=== PATIENT | male | born 1960 | race Caucasian/White ===

== ENCOUNTER → 2025-04-25 08:16 | Outpatient (CLI) | payer OTHER, SELFPAY ==
--- OUTSIDE RECORDS SUMMARY | 2025-04-04 08:13 | XMS_ITS ---
Author Organization [facility] Care Team Providers Care Automatic Seamer Name Role Phone Guy Ellington Unavailable Allergies and adverse reactions Code CodeSystem Substance Reaction Severity StartDate Concern Status 721636414 SNOMED CT Sulfa Antibiotics Urticaria (code- 614871311, SNOMED CT) Unknown 06/10/2023 active Care Team Name Role Address Phone Organization Dates Guy Ellington PCP [address] [place], [address], [place] (Office): : : [employer] 06/11/2023 - 06/11/2023 Mental Status Section Date Assessment Total Score Description 06/11/2023 CAM 0 No delirium ind icated 06/11/2023 BIMS 15 cognitively int act CAM 0 No delirium ind icated PHQ-9 15 moderately bryce re depression Problems Problem # Description Date of onset Resolved Date Code CodeSystem Concern Status 1 UNSTEADINESS ON FEET 07/13/[address] active 2 DIFFICULTY IN WALKING, NOT ELSEWHERE CLASSIFIED 06/11/[address] active 3 NEED FOR ASSISTANCE WITH PERSONAL CARE 06/11/[address] active 4 WEAKNESS 06/11/[address] active 5 ACUTE RESPIRATORY FAILURE, UNSPECIFIED WHETHER WITH HYPOXIA OR HYPERCAPNIA 06/10/[address] active 6 ARTHROSCOPIC SURGICAL PROCEDURE CONVERTED TO OPEN PROCEDURE 06/10/[address] active 7 BENIGN PROSTATIC HYPERPLASIA WITH LOWER URINARY TRACT SYMPTOMS 06/10/[address] active 8 BODY MASS INDEX [BMI] 45.0-49.9, ADULT 06/10/[address] active 9 CHRONIC KIDNEY DISEASE, STAGE 3 UNSPECIFIED 06/10/[address] active 10 GASTRO-ESOPHAGEAL REFLUX DISEASE WITHOUT ESOPHAGITIS 06/10/[address] active 11 HYPERLIPIDEMIA, UNSPECIFIED 06/10/[address] active 12 HYPERTENSIVE HEART AND CHRONIC KIDNEY DISEASE WITHOUT HEART FAILURE, WITH STAGE 1 THROUGH STAGE 4 CHRONIC KIDNEY DISEASE, OR UNSPECIFIED CHRONIC KIDNEY DISEASE 06/10/[address] active 13 HYPOTHYROIDISM, UNSPECIFIED 06/10/[address] active 14 PROGRAM PARAPROFESSIONAL (CURRENT) USE OF INSULIN 06/10/[address] active 15 METABOLIC ENCEPHALOPATHY 06/10/[address] active 16 MORBID (SEVERE) OBESITY WITH ALVEOLAR HYPOVENTILATION 06/10/[address] active 17 OBSTRUCTIVE SLEEP APNEA (ADULT) (PEDIATRIC) 06/10/[address] active 18 PAIN IN LEFT KNEE 06/10/[address] active 19 RETENTION OF URINE, UNSPECIFIED 06/10/[address] active 20 SEPSIS, UNSPECIFIED ORGANISM 06/10/[address] active 21 TYPE 2 DIABETES MELLITUS WITH DIABETIC CHRONIC KIDNEY DISEASE 06/10/[address] active 22 VITAMIN D DEFICIENCY, UNSPECIFIED 06/10/[address] active Reason for Referral No Reasons for Referral Entered Social History Social History Observation Description Start Date End Date Code Code System Current Smoking Status Tobacco smoking consumption unknown 520347315 SNOMED CT Sex Assigned At Male 1960 04552-3 [facility] Gender Identity Sexual Orientation Vital Signs Code Code System Vitals Name Values and Units Timing Information 15356-2 LOINC Pain Level Value=0.0 06/11/2023 8302-2 LOINC Height Value=72.0 Units=Inches 1 08/12/2022
--- OUTSIDE RECORDS SUMMARY | 2025-04-04 08:13 | XMS_ITS | Encounter Summary ---
Author Organization [facility] Address Formerly [facility] [place] [address] Care Team Providers Care Marketing Assistant Name Role Phone Quincy Rosado MD Primary Care Provider [phone] None, Provider Primary Care Provider Zachary Longoria MD Primary Care Provider [phone] Encounter Details Date Type Department Care Team (Late st Contact Info) Description 11/04/2020 Prep for Procedure [facility] [place], [place] [address] Kevin Briggs MD [address] [phone] Social History Tobacco Use Types Packs/Day Years Used Date Smoking Tobacco: Former Smokeless Tobacco: Never Alcohol Use Standard Drinks/Week Comments Never 0 (1 standard drink = 0.6 oz pur e alcohol) AUDIT-C Answer Date Recorded Q1: How often do you have a drink containing alc ohol? Never 10/29/2020 Average Number of Drinks Not on file 021 Frequency of Binge Drinking Not on file 10/10 Sex and Gender Information Value Date Recorded Sex Assigned at Male 01/22/2025 1:19 PM CDT Legal Sex Male 6:44 AM SKILLS TRAINER Gender Identity Not on file Sexual Orientation Not on file COVID-19 Exposure Response Date Recorded In the last month, have you been in contact with someone who was confirmed or suspected to have Coronavirus / COVID-19? No / Unsure 11/04/2020 6:19 AM CDT documented as of this encounter Functional Status * RETIRED Are you deaf or do you have serious difficulty hearing Answer Date of Assessment Author Status No 08/19/2020 10:15 PM SKILLS TRAINER 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 Answer Date of Assessment Author Status No 08/19/2020 10:15 PM SKILLS TRAINER Acti ve * Do you have serious difficulty walking or climbing stairs? Answer Date of Assessment Author Status No 08/19/2020 10:15 PM Jose Velazco RN Active * Do you have difficulty dressing or bathing? Answer Date of Assessment Author Status No 08/19/2020 10:15 PM Jose Velazco RN Active * Because of a physical, mental, or emotional condition, do you have difficulty doing errands alone such as visiting a doctor's office or shopping? Answer Date of Assessment Author Status No 08/19/2020 10:15 PM Jose Velazco RN Active documented as of this encounter Mental Status * Because of a physical, mental, or emotional condition, do you have serious difficulty concentrating, remembering, or making decisions? Answer Entry Date Author Status No 08/19/2020 10:15 PM Jose Velazco RN Active documented in this encounter Plan of Treatment Upcoming Encounters Date Type Department Care Team (Late st Contact Info) Description 04/05/2025 11:00 AM CDT Home Care Visit [facility] Home Care [address] [place] [address] Татьяна Mondragon LPN 04/09/2025 10:00 AM CDT Home Care Visit [facility] Home Care [address] [place] [address] Sourav Negron, BLUEPRINT CUTTER [address] [place] [address] 04/11/2025 11:30 AM CDT Office Visit [facility] on THREE [facility], [address] [facility] [place] [place] [address] Marita Hargrove, PROTOCOL MANAGER Three [facility] [address] [place] [address] 04/12/2025 9:00 AM CDT Home Care Visit [place] [address] [place] [address] Татьяна Mondragon LPN 04/12/2025 10:00 AM CDT Home Care Visit [facility] [place] [address] [place] [address] Sourav Negron, BLUEPRINT CUTTER [address] [place], [place] [address] 04/15/2025 8:00 AM CDT Home Care Visit [place] [address] [place] [address] Sourav Negron, BLUEPRINT CUTTER [address] [place], [place] [address] 04/18/2025 8:00 AM CDT Home Care Visit [place] [address] [place] [address] Sourav Negron, BLUEPRINT CUTTER [address] [place] [address] 04/19/2025 8:00 AM CDT Appointment [facility] Home Care [place] [address] [place] [address] Niurka Cabral, RN [phone] (Work) 04/22/2025 8:00 AM CDT Home Care Visit [facility] Home Care [place] [address] [place] [address] Sourav Negron, BLUEPRINT CUTTER [address] [place], [place] [address] 04/24/2025 8:00 AM CDT Appointment [facility] Home Care [place] [address] [place] [address] Shikha Posada, PT [address] [place] [address] 05/22/2025 3:00 PM SKILLS TRAINER Office Visit [facility] on [address] [facility] [address], [address] [place] [address] Inessa Arriola MD Three [facility]. [address] [place] [address] documented as of this encounter Visit Diagnoses Not on filedocumented in this encounter Additional Health Concerns Infection Onset Date Last Indicated Resolved Time COVID-19 Rule Out 05/10/2023 05/10/2023 05/10/2023 10:23 PM CDT COVID-19 Rule Out 01/22/2025 01/22/2025 01/22/2025 2:34 PM CDT documented as of this encounter Care Teams Marketing Assistant Relationship Specialty Start Date End Date Quincy Rosado MD [address] [address] PCP - General INTERNAL MEDICINE 08/19/20 03/14/25 None, MD Faraz PCP - General UNKNOWN PHYSICIAN SPECIALTY 03/15/25 03/18/25 Zachary Allen MD [address] [place] [address] PCP - General INTERNAL MEDICINE 03/27/25 documented as of this encounter
--- OUTSIDE RECORDS SUMMARY | 2025-04-04 08:13 | XMS_ITS | Clinical Summary ---
Author Organization [facility] Address [address] [place] [address] Care Team Providers Care Horses Or Mules Teamster Name Role Phone Quincy Rosado Primary Care Provider Allergies Active Allergy Reactions Criticality Noted Date Comments Sulfa Antibiotics Hives 05/07/2023 Medications amLODIPine (NORVASC) 10 MG tablet Take 1 tablet (10 mg total) by mouth in the morning. 3 Active atorvastatin (LIPITOR) 40 MG tablet Take 1 tablet (40 mg total) by mouth nightly. 3 Active ferrous sulfate 325 (65 FE) MG tablet Take 1 tablet by mouth daily with lunch. 3 Active finasteride (PROSCAR) 5 MG tablet Take 1 tablet (5 mg total) by mouth in the morning. 3 Active furosemide (LASIX) 20 MG tablet 3 tablets (60 mg total) by PO/Per Tube route 2 (two) times a day diuretic. 3 Active lidocaine (LIDOCARE) 4 % patch patch Place 1 patch on the skin in the morning. 3 Active thiamine 100 MG tablet Take 2 tablets (200 mg total) by mouth in the morning. 3 Active acetaminophen (TYLENOL) 325 MG tablet Take 2 tablets (650 mg total) by mouth every 4 (four) hours as needed for mild pain or moderate pain. 3 Active cholecalciferol 1000 units capsule Take 50,000 Units by mouth once a week. 3 Active docusate sodium (DSS) 100 MG capsule Take 1 capsule (100 mg total) by mouth in the morning and 1 capsule (100 mg total) before bedtime. 3 Active Empagliflozin (JARDIANCE) 25 MG tabletIndication s:Type 2 Diabetes Mellitus Take 1 tablet (25 mg total) by mouth in the morning. Indications: Type 2 Diabetes. 3 Active enoxaparin (LOVENOX) 40 MG/0.4ML solution prefilled syringeIndicatio ns:Deep Vein Thrombosis Prophylaxis Inject 0.4 mL (40 mg total) under the skin in the morning and 0.4 mL (40 mg total) before bedtime. Indications: Treatment to Prevent Deep Vein Thrombosis. 3 Active glipiZIDE (GLUCOTROL) 5 MG tabletIndication s:Type 2 Diabetes Mellitus Take 1 tablet (5 mg total) by mouth daily with breakfast Indications: Type 2 Diabetes. 3 Active Insta-Glucose 77.4 % gelIndications:H ypoglycemia Take 0.5 Tubes (15.5 g total) by mouth as needed for blood sugar < 70 mg/dl Indications: Disorder with Low Blood Sugar. 3 Active insulin glargine (LANTUS) 100 UNIT/ML injectionIndicat ions:Diabetes Mellitus Inject 55 Units under the skin 2 (two) times a day with Breakfast and Dinner Indications: Diabetes. 3 Active insulin lispro 100 UNIT/ML injectionIndicat ions:Hyperglycem ia Inject 0-7 Units under the skin 3 (three) times a day before meals Indications: High Blood Sugar. 3 Active insulin lispro 100 UNIT/ML injectionIndicat ions:Type 2 Diabetes Mellitus Inject 25 Units under the skin in the morning and 25 Units at noon and 25 Units in the evening. Inject with meals. Indications: Type 2 Diabetes. 3 Active spironolactone (ALDACTONE) 25 MG tablet Take 1 tablet (25 mg total) by mouth in the morning and 1 tablet (25 mg total) in the evening. Take before meals. 3 Active Active Problems Problem Noted Date Diagnosed Date Sepsis 05/25/2023 Immunizations Immunization Administration Dates Next Due Pfizer SARS-CoV-2 Vaccination 05/26/2023(Deferre d: Not available) Social History Tobacco Use Types Packs/Day Years Used Date Smoking Tobacco: Never Assessed Sex and Gender Information Value Date Recorded Sex Assigned at Not on file Legal Sex Male 11:42 AM EST Gender Identity Not on file Sexual Orientation Not on file Last Filed Vital Signs Vital Sign Reading Time Taken Comments Blood Pressure 132/68 06/10/2023 7:40 AM ANIMAL CRUELTY INVESTIGATION SUPERVISOR Pulse 81 06/10/2023 7:40 AM ANIMAL CRUELTY INVESTIGATION SUPERVISOR Temperature 37.3 C (99.2 F) 06/10/2023 7:40 AM ANIMAL CRUELTY INVESTIGATION SUPERVISOR Respiratory Rate 18 06/10/2023 7:40 AM ANIMAL CRUELTY INVESTIGATION SUPERVISOR Oxygen Saturation 96% 06/09/2023 7:30 PM ANIMAL CRUELTY INVESTIGATION SUPERVISOR Inhaled Oxygen Concentration - - Weight 168.3 kg (371 lb) 06/10/2023 4:00 AM ANIMAL CRUELTY INVESTIGATION SUPERVISOR Height 182.9 cm (6' 0.01) 05/25/2023 7:04 PM CS T Body Mass Index 50.31 05/25/2023 7:04 PM ANIMAL CRUELTY INVESTIGATION SUPERVISOR Plan of Treatment Health Maintenance Due Date Last Done Comments CT Colonography 1960 Colonoscopy 1960 Colorectal Cancer Screening 1960 FIT-DNA (Cologuard) 1960 FIT 1960 FOBT 1960 Sigmoidoscopy 1960 Annual Visit Topic 1961 MMR Vaccines (1 of 1 - Stand dot series) 1961 Hepatitis C Screening 1978 DTaP/Tdap/Td Vaccines (1 - Tdap) 1979 PSA Test 2015 HIB Vaccines Aged Out No longer eligi ble based on patient's age to complete this topic HPV Vaccines Aged Out No longer eligi ble based on patient's age to complete this topic Hepatitis A Vaccines Aged Out No long er eligible based on patient's age to complete this topic Hepatitis B Vaccines Aged Out No long er eligible based on patient's age to complete this topic IPV Vaccines Aged Out No longer eligi ble based on patient's age to complete this topic Meningococcal Vaccine Aged Out No latesha jina eligible based on patient's age to complete this topic Pneumococcal Vaccine: Pediat rics (0 to 5 years) and At-Risk Patients (6 to 64 Years) Aged Out No longer eligible b ased on patient's age to complete this topic Advance Directives * Full Resuscitation (Latest Code Status on File) Date Activated Date Inactivated Comments 05/25/2023 10:15 PM 06/10/2023 8:54 PM Question Answer Comments I have discussed this order with the patient or his/her surrogate and have received informed consent. Yes Care Teams Horses Or Mules Teamster Relationship Specialty Start Date End Date Quincy Rosado [address] [place] [address] PCP - General 05/26/23
--- OUTSIDE RECORDS SUMMARY | 2025-04-04 08:13 | XMS_ITS | Encounter Summary ---
Author Organization [facility] Address [facility] [place] [address] Care Team Providers Care Bolting Machine Operator Name Role Phone Quincy Rosado MD Primary Care Provider [phone] None, Provider Primary Care Provider Zachary Longoria MD Primary Care Provider [phone] Encounter Details Date Type Department Care Team (Late st Contact Info) Description 11/01/2020 Prep for Procedure [facility] One Day [facility] [place], [place] [address] Kevin Briggs MD [address] [phone] Social History Tobacco Use Types Packs/Day Years [...] PM CDT Legal Sex Male 6:44 AM LINER CHECKER Gender Identity Not on file Sexual Orientation [...] Assessment Author Status No 08/19/2020 10:15 PM LINER CHECKER 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 Answer Date of Assessment Author Status No 08/19/2020 10:15 PM LINER CHECKER Acti ve * Do you have serious [...] 04/05/2025 11:00 AM CDT Home Care Visit [facility] Home Care [address] [place] [address] Татьяна Mondragon LPN 04/09/2025 10:00 AM CDT Home Care Visit [facility] Home Care [address] [place] [address] Sourav Negron, RN NEONATAL [address] [place] [address] 04/11/2025 11:30 AM CDT Office Visit [facility] on THREE [facility], [address] [facility] [place] [address] Marita Hargrove, MILLED LUMBER GRADER Three [facility] [address] [place] [address] 04/12/2025 9:00 AM CDT Home Care Visit [place] [address] [place] [address] Татьяна Mondragon LPN 04/12/2025 10:00 AM CDT Home Care Visit [facility] Care [place] [address] [place] [address] Sourav Negron, RN NEONATAL [address] [place], [place] [address] 04/15/2025 8:00 AM CDT Home Care Visit [place] [address] [place] [address] Sourav Negron, RN NEONATAL [address] [place], [place] [address] 04/18/2025 8:00 AM CDT Home Care Visit [place] [address] [place] [address] Sourav Negron, RN NEONATAL [address] [place] [address] 04/19/2025 8:00 AM CDT Appointment [facility] Home Care [place] [address] [place] [address] Niurka Cabral, RN [phone] (Work) 04/22/2025 8:00 AM CDT Home Care Visit [facility] Home Care [place] - [address] [place] [address] Sourav Negron, RN NEONATAL [address] [place], [place] [address] 04/24/2025 8:00 AM CDT Appointment [facility] Home Care [address] [place] [address] Shikha Posada, PT [address] [place] [address] 05/22/2025 3:00 PM LINER CHECKER Office Visit [facility]- on THREE [facility] [address], [address] [place], [place] [address] Inessa Arriola MD Three [facility]. [address] [place] [address] documented as of this encounter Visit Diagnoses Diagnosis Abnormal findings on imaging of biliary tract- Primary Nonspecific (abnormal) findings on radiological and other examination of biliary tract documented in this encounter Additional Health Concerns Infection Onset Date Last Indicated Resolved Time COVID-19 Rule Out 11/02/2020 11/02/2020 11/03/2020 12:18 PM CDT COVID-19 Rule Out 05/10/2023 05/10/2023 05/10/2023 10:23 PM CDT COVID-19 Rule Out 01/22/2025 01/22/2025 01/22/2025 2:34 PM CDT documented as of this encounter Care Teams Bolting Machine Operator Relationship Specialty Start Date End Date Quincy Rosado MD [address] [address] PCP - General INTERNAL MEDICINE 08/19/20 03/14/25 None, MD Faraz PCP - General UNKNOWN PHYSICIAN SPECIALTY 03/15/25 03/18/25 Zachary Allen MD [address] [place] [address] PCP - General INTERNAL MEDICINE 03/27/25 documented as of this encounter
--- OUTSIDE RECORDS SUMMARY | 2025-04-04 08:13 | XMS_ITS | Clinical Summary ---
Author Organization [facility] Address [address] [place] [address] Care Team Providers Care Assistance Coordinator Name Role Phone Zachary Allen MD Primary Care Provider [phone] Allergies Active Allergy Reactions Criticality Noted Date Comments Sulfa (Sulfonamide Antibiotics) Hives High 04/11 Medications aspirin (ECOTRIN EC) 81 mg Tablet, Delayed Release (E.C.) Take 1 Tablet by mouth. 05/11/20 15 Active triamcinolone acetonide (KENALOG) 0.1 % Cream Apply to affected area 2 times daily. Apply to affected area of leg(s) 1 to 2 times per day up to 2 to 4 weeks Active Insulin [place], Disposable, (Novofine 32) 32 gauge x 1/4 Needle by [facility]Non-Drug; Combo Route) route. Active Insulin [place], Disposable, (TechLITE Pen Needle) 32 gauge x 1/4 Needle by Misc.(Non-Drug; Combo Route) route. Active acetaminophen (TYLENOL) 325 mg tablet Take 650 mg by mouth every 4 hours as needed. 06/10/20 23 Active cyanocobalamin 1,000 mcg Tablet Take 1,000 mcg by mouth daily. Active mupirocin (BACTROBAN) 2 % Ointment Apply to affected area daily. 30 Gram 1 11/16/19 25 Active Cholestyramine- Sucrose 4 gram Powder DISSOLVE 2 GRAMS( 1/2 SCOOP) INTO LIQUID AND DRINK BY MOUTH DAILY 378 Gram 1 12/20/19 25 Active telmisartan (MICARDIS) 40 mg Tablet Take 1 Tablet (40 mg) by mouth daily. 100 Tablet 3 02/13/20 25 Active furosemide (LASIX) 20 mg tablet Take 3 Tablets (60 mg) by mouth daily. 90 Tablet 02/13/20 25 Active finasteride (PROSCAR) 5 mg tablet Take 1 Tablet (5 mg) by mouth daily. 90 Tablet 02/13/20 25 Active atorvastatin (LIPITOR) 40 mg tablet Take 1 Tablet (40 mg) by mouth daily at bedtime. 100 Tablet 02/13/20 25 Active tamsulosin (FLOMAX) 0.4 mg capsule Take 1 Capsule (0.4 mg) by mouth daily. 90 Capsule 02/13/20 25 Active carvediloL (COREG) 25 mg tablet Take 1 Tablet (25 mg) by mouth 2 times daily. 100 Tablet 02/13/20 25 Active amLODIPine (NORVASC) 10 mg tablet Take 1 Tablet (10 mg) by mouth daily. 100 Tablet 02/13/20 25 Active allopurinoL (ZYLOPRIM) 300 mg tablet Take 1 Tablet (300 mg) by mouth daily. 90 Tablet 02/13/20 25 Active blood sugar diagnostic (Uber Ultra Test) StripIndication s:Type 2 diabetes mellitus with diabetic nephropathy, with long-term current use of insulin (CMS/[facility]) Use to test blood sugars 5-6 times a day 200 Strip 02/13/20 25 Active Insulin [place], Disposable, (TechLITE Pen Needle) 32 gauge x 5/32 Needle Inject 100 Each by subcutaneous injection daily. 100 Each 02/13/20 25 Active metFORMIN (GLUCOPHAGE) 1,000 mg tablet Take 1 Tablet (1,000 mg) by mouth 2 times daily. 200 Tablet 02/13/20 25 Active pantoprazole (PROTONIX) 40 mg Tablet, Delayed Release (E.C.) Take 1 Tablet (40 mg) by mouth daily. 100 Tablet 02/14/20 25 Active albuterol sulfate HFA 90 mcg/actuation aerosol inhaler 2 Puffs by See Admin Instructions route see administration instructions. SHAKE AND INHALE 2 PUFFS INTO THE LUNGS FOUR TIMES DAILY NEEDED; RINSE MOUTH AFTER USE 20.1 Gram 02/15/20 25 Active HumaLOG KwikPen Insulin 100 unit/mL pen syringeIndicati ons:Type 2 diabetes mellitus with diabetic nephropathy, with long-term current use of insulin (CMS/HCC) 30 units by subcutaneous injection in the morning, 30units with lunch and 36 units in the evening 87 mL 02/15/20 25 Active magnesium OXIDE (MAG-OX) 400 mg (241.3 mg magnesium) tablet Take 1 Tablet (400 mg) by mouth daily. 90 Tablet 1 02/16/20 25 Active levothyroxine 200 mcg tabletIndicatio ns:Hypothyroidi sm, unspecified type Take 1 Tablet (200 mcg) by mouth daily in the morning. Take on an empty stomach. Take with 25mcg tablet for total dose of 225mcg. 90 Tablet 3 02/27/20 25 Active levothyroxine 25 mcg tabletIndicatio ns:Hypothyroidi sm, unspecified type Take 1 Tablet (25 mcg) by mouth daily in the morning. 100 Tablet 3 02/27/20 25 Active ciprofloxacin HCl (CIPRO) 500 mg tabletIndicatio ns:Complicated UTI (urinary tract infection) Take 1 Tablet (500 mg) by mouth 2 times daily. 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 if still severe will likely do follow up in Lab titration for CPAP/BPAP, otherwsie will recommend oral applaince HTN (hypertension) 10/09/2018 Overview (10/09/2018): continue current therapy GERD (gastroesophageal reflux disease) 9 Overview (10/09/2018): Continue protonix. Avoid eating less than 2 hours prior to bedtime. Resolved Problems Problem Noted Date Diagnosed Date Resolved Date High anion gap metabolic acidosis 05/29/2024 05/29/2024 Non-pressure chronic ulcer o f right lower leg with fat layer exposed 12/13/2023 05/30/2024 Non-pressure chronic ulcer o f left ankle with fat layer exposed 12/13/2023 05/30/2024 Septic arthritis of knee, left 11/23/2023 11/23/2023 Overview (11/23/2023): s/p debridement. April 2023 Pulmonary hypertension 11/23/202309/19 Cellulitis 07/18/2023 05/29/2024 Sepsis 05/07/2023 05/29/2024 Cholecystitis 08/20/2020 05/29/2024 Cholelithiasis 08/19/2020 05/29/2024 Hyperthyroidism 10/09/2018 11/23/2023 Overview (10/09/2018): Cntinue current dose of thyroxine. Morbid obesity with BMI of 50.0-59.9, adult 10/09/2018 11/23/2023 Overview (10/09/2018): healthy living, weight loss , diet and exercise advised. Acute kidney injury 09/16/2018 05/29/20 24 Encounters Date Type Department Care Team Description 03/28/2025 Abstract [facility] Internal Medicine [address] [address] Zachary Allen MD 03/27/2025 Telephone [facility] [address] [address] Zachary Allen MD Provider Call 03/12/2025 External Device Data [facility] ABSTRACTION Provider, Abstract 03/12/2025 Nurse Triage [facility] [address] [address] Zachary Allen MD 02/27/2025 External Device Data [facility] ABSTRACTION Provider, Abstract 02/26/2025 Results Follow-Up [address] [phone] Zachary Allen MD URINALYSIS WITH REFLEX CULTURE, URINE CULTURE 02/26/2025 Results Follow-Up [address] [phone] Zachary Allen MD PSA, COMPREHENSIVE METABOLIC PANEL, CBC WITHOUT DIFFERENTIAL, Additional followed-up results: 8 02/21/[address] [phone] Zachary Allen MD billing problem 02/14/[address] [phone] Zachary Allen MD Medication Assistance 02/13/2025 External Device Data [facility] ABSTRACTION Provider, Abstract 02/13/[address] [address] Zachary Allen MD Remote Monitoring 02/13/2025 Refill [facility] Primary Care [address] [phone] Zachary Allen MD 02/12/2025 External Device Data [facility] ABSTRACTION Provider, Abstract 02/12/[address] [address] Zachary Allen MD Type 2 diabetes mellitus with diabetic nephropathy, with long-term current use of insulin ([facility]) 02/07/2025 2:00 PM CDT Office Visit [address] [address] Zachary Allen MD Acute heart failure with preserved ejection fraction (CMS/HCC) (Primary Dx); Encounter for colorectal cancer screening; Morbid obesity with body mass index of 40.0-49.9 ([facility]); JOANA (obstructive sleep apnea); Primary hypertension; Benign prostatic hyperplasia with urinary retention; Type 2 diabetes mellitus with diabetic nephropathy, with long-term current use of insulin (CMS/[facility]); Acquired hypothyroidism; Mixed hyperlipidemia; Murphy catheter in place; Reduced mobility; Retention of urine, unspecified; Screening for prostate cancer; History of anemia; Acute respiratory failure with hypoxia (CMS/HCC) 02/04/2025 Patient Outreach [facility] [place] [address] [place] [address] Zachary Allen MD Primary Care Outreach (Spoke to pt regarding there PCP Dr Alonzo cordon and the [facility] Cl[facility] and needing to select a new provider. Was able to schedule an appt for pt with Dr Zachary Allen./) 01/23/2025 External Device Data [facility] ABSTRACTION Provider, Abstract 01/23/2025 External Device Data [facility] ABSTRACTION Provider, Abstract 01/08/2025 Refill [facility] [place] [id number] [place] [address] Arun Joseph PA-C from Last 3 Months Immunizations Immunization Administration Dates Next Due (TDVAX)(7 YRS UP) TETANUS AN D DIPHTHERIA TOXOIDS, ADSORBED (2 LF OF TETANUS TOXOID AND 2 LF OF DIPHTHERIA TOXOID), 0.5ML (PF), IM 07/11/2011 Influenza Seasonal Unspecified Formulation IM Influenza Vaccine Tri Split 4+ Im 04/29/2014 Pneumococcal 7-valent conjugate vaccine IM 11/23 Pneumococcal Polysaccharide Vacc 23-clarice IM SCHIP 02/08/2014 Family History Medical History Relation Name Comments Diabetes Father Hypertension Father Hypertension Mother Lung Cancer Mother Relation Name Status Comments Father Mother Social History Tobacco Use Types Packs/Day Years Used Date Smoking Tobacco: Former Cigarettes Q uit: 2008 Smokeless Tobacco: Former Chew Quit: 1978 Tobacco Cessation:Counseling Given: No Alcohol Use Standard Drinks/Week Comments Yes 0 (1 standard drink = 0.6 oz pur e alcohol) rarely Feeling Safe Answer Date Recorded Are you in a relationship wi th someone who hurts you emotionally and/or physically? No 03/20/2024 Sex and Gender Information Value Date Recorded Sex Assigned at Not on file Legal Sex Male 1:15 PM CDT Gender Identity Not on file Sexual Orientation Not on file Last Filed Vital Signs Vital Sign Reading Time Taken Comments Blood Pressure 126/69 02/07/2025 2:46 PM CDT Pulse 79 02/07/2025 2:46 PM CDT Temperature 36.7 C (98.1 F) 02/07/2025 2:46 PM CDT Respiratory Rate 16 02/07/2025 2:46 PM CDT Oxygen Saturation 92% 02/07/2025 2:46 PM CDT Inhaled Oxygen Concentration - - Weight 183.7 kg (405 lb) 02/07/2025 2:46 PM CDT Height 182.9 cm (6') 02/07/2025 2:46 PM CDT Body Mass Index 54.93 02/07/2025 2:46 PM CDT Plan of Treatment Upcoming Encounters Date Type Department Care Team (Late st Contact Info) Description 05/14/2025 2:40 PM GEOCHEMIST Office Visit [facility] Internal Medicine - [address] [phone] Zachary Allen MD [address] [place] [address] Health Maintenance Due Date Last Done Comments DIABETES ANNUAL FOOT EXAM 1978 DIABETES ANNUAL RETINAL EXAM 1978 COLORECTAL SCREENING 2005 Colorectal Cancer Screening 2005 FIT-DNA Q 3 years 2005 FIT/FOBT Q 1 year 2005 Flex Sig/CT Colonography Q 5 years 2005 ZOSTER VACCINE (1 of 2) 2010 DTAP/TDAP/TD VACCINES (1 - Tdap) 07/12/2011 07/11/19 12 RSV VACCINE (60+ or ) (1 - Risk 60-74 years 1-dose series) 2020 Preventative Visit- Commercial 07/11/2024 INFLUENZA VACCINE (#1) 2025 03/26/2020, 2013 DIABETES: A1C (Auto Order) 05/28/202502/25, 01/23/2025, 11/23/2023, Additional history exists DIABETES HBA1C Q 6 MONTHS 08/28/20252024, 01/23/2025, 11/23/2023, Additional history exists DIABETES MICROALBUMIN ANNUAL SCREEN 02/25/2026 02/25/2025 LDL CHOLESTEROL ANNUAL 02/25/2026 02/25/2025, 2023 Abdominal Aortic Aneurysm (A AA) Screening Completed 05/28/2023 Procedures Procedure Name Priority Date/Time Associated Diagnosis Comments URINALYSIS WITH REFLEX CULTURE Routine 02/25/2025 1:37 PM CDT Urinary urgency URINE CULTURE Routine 02/25/2025 1:37 PM CDT MICROALBUMIN/CREATINI NE RATIO, RANDOM UR Routine 02/25/2025 1:26 PM CDT VITAMIN B12 LEVEL Routine 02/25/2025 1:2 6 PM CDT RETICULOCYTES Routine 02/25/2025 1:26 PM CDT History of anemia IRON, TIBC, AND PERCENT SATURATION Routine 02/25/2025 1:26 PM CDT History of anemia FERRITIN Routine 02/25/2025 1:26 PM CDT History of anemia TSH Routine 02/25/2025 1:26 PM CDT Acquired hypothyroidism HEMOGLOBIN A1C Routine 02/25/2025 1:26 PM CDT Type 2 diabetes mellitus with diabetic nephropathy, with long-term current use of insulin (CMS/HCC) LIPID PANEL Routine 02/25/2025 1:26 PM CDT Type 2 diabetes mellitus with diabetic nephropathy, with long-term current use of insulin (CMS/HCC) CBC WITHOUT DIFFERENTIAL Routine 02/25/2025 1:26 PM CDT Type 2 diabetes mellitus with diabetic nephropathy, with long-term current use of insulin (CMS/HCC) COMPREHENSIVE METABOLIC PANEL Routine 02/25/2025 1:26 PM CDT Type 2 diabetes mellitus with diabetic nephropathy, with long-term current use of insulin (CMS/HCC) PSA Routine 02/25/2025 1:26 PM CDT Screening for prostate cancer from Last 3 Months Results * (ABNORMAL) URINALYSIS WITH REFLEX CULTURE (02/25/2025 1:37 PM CDT) COLOR UA YELLOW YELLOW [facility] CLARITY UA CLOUDY(A) CLEAR [facility] SPECIFIC GRAVITY UA 1.013 1.001 - 1.035 [facility] PH UA < OR = 5.0(A) 5.0 - 8.0 [facility] GLUCOSE UA NEGATIVE NEGATIVE [facility] BILIRUBIN UA NEGATIVE NEGATIVE [facility] KETONES UA NEGATIVE NEGATIVE [facility] BLOOD UA TRACE(A) NEGATIVE [facility] PROTEIN UA 2+(A) NEGATIVE [facility] NITRITE UA NEGATIVE NEGATIVE [facility] LEUKOCYTE ESTERASE UA 2+(A) NEGATIVE [facility] WBC UA 10-20(A) < OR = 5 /HPF [facility] RBC UA 0-2 < OR = 2 /HPF [facility] EPITHELIAL CELLS, URINE 6-10(A) < OR = 5 /HPF [facility] BACTERIA UA MANY(A) NONE SEEN /HPF [facility] HYALINE CAST 0-5(A) NONE SEEN /LPF [facility] URINE NOTE [facility] Comment: This urine was analyzed for the presence of WBC, RBC, bacteria, casts, and other formed elements. Only those elements seen were reported. URINE CULTURE [facility] Comment: CULTURE INDICATED - RESULTS TO FOLLOW Test Performed at: [facility] [place] [address] [address] Philippe Berrios Urine URINE SPECIMEN OBTAINED BY CLEAN CATCH PROCEDURE / Unknown 02/25/2025 1:37 PM CDT 02/25/2025 1:37 PM CDT aZchary Allen MD URINE ORDERABLES Final Result [facility] [phone] [place] [address] [address] [address] * (ABNORMAL) URINE CULTURE (02/25/2025 1:37 PM CDT) URINE CULTURE SEE NOTE(A) [facility] Comment: CULTURE, URINE, ROUTINE Micro Number: [id number] Test Status: Final Specimen Source: Urine Specimen Quality: Adequate Result: Greater than 100,000 CFU/mL of Serratia marcescens S.marcescens INT CARMELO AMOX/CLAVULANATE R >=32 CEFAZOLIN R >=32 1 CEFEPIME S <=0.12 CEFTAZIDIME S <=0.5 CEFTRIAXONE S <=0.25 CIPROFLOXACIN S <=0.06 GENTAMICIN S <=1 LEVOFLOXACIN S <=0.12 MEROPENEM S <=0.25 NITROFURANTOIN R 256 TRIMETHOPRIM/SULFA S <=20 S = Susceptible I = Intermediate R = Resistant NS = Not susceptible SDD = Susceptible Dose Dependent * = Not Tested NR = Not Reported NN = See Therapy Comments THERAPY COMMENTS Note 1: For uncomplicated UTI caused by E. coli, K. pneumoniae or P. mirabilis: Cefazolin is susceptible if CARMELO <32 mcg/mL and predicts susceptible to the oral agents cefaclor, cefdinir, cefpodoxime, cefprozil, cefuroxime, cephalexin and loracarbef. Test Performed at: [facility] [address] [address] MollyAtilioburt Sherrell 02/25/2025 1:37 PM CDT 02/25/2025 1:37 PM CDT Zachary Allen MD MICROBIOLOGY - GENERAL ORDERABL ES Final Result [facility] [phone] [place] [address] [address] [address] * (ABNORMAL) MICROALBUMIN/CREATININE RATIO, RANDOM UR (02/25/2025 1:26 PM CDT) CREATININE, URINE 67 20 - 320 mg/dL [facility] ALBUMIN, URINE 42.7 See Note: mg/dL [facility] Comment: Reference Range: Reference Range Not established Results verified by repeat analysis on dilution. ALB/CREAT RATIO, URINE 637(H) <30 mg/g creat [facility] Comment: The ADA defines abnormalities in albumin excretion as follows: Albuminuria Category Result (mg/g creatinine) Normal to Mildly increased <30 Moderately increased 30-299 Severely increased > OR = 300 The ADA recommends that at least two of three specimens collected within a 3-6 month period be abnormal before considering a patient to be within a diagnostic category. Test Performed at: [facility] [address] Philippe Berrios MD 02/25/2025 1:26 PM CDT 02/25/2025 1:27 PM CDT Zachary Allen MD URINE ORDERABLES Final Result Performing Organization Address [facility] Co de Phone Number [facility] [phone] [facility] [address] * (ABNORMAL) IRON, TIBC, AND PERCENT SATURATION (02/25/2025 1:26 PM CDT) [facility] Signature IRON 63 50 - 180 mcg/dL [facility] TIBC 380 250 - 425 mcg/dL (calc) [facility] IRON % SATURATION 17(L) 20 - 48 % (calc) [facility] Comment: Test Performed at: [facility] [address] [place] [address] Philippe Berrios MD Blood 02/25/2025 1:26 PM CDT 02/25/2025 1:27 PM CDT Zachary Allen MD CHEMISTRY ORDERABLES Final Resu lt Performing Organization Address [facility] Co de Phone Number [facility] [phone] [address] * RETICULOCYTES (02/25/2025 1:26 PM CDT) Pathologist [facility] RETICULOCYTES 2.0 % [facility] RETICULOCYTE, ABSOLUTE 86,200 25,000 - 90,000 cells/uL [facility] Comment: FASTING:NO FASTING: NO Test Performed at: [facility] [address] [place] [address] Philippe Berrios MD Blood 02/25/2025 1:26 PM CDT 02/25/2025 1:27 PM CDT us Zachary Allen MD HEMATOLOGY ORDERABLES Final Res ult [facility] [phone] [facility] [address] [place] [address] * (ABNORMAL) CBC WITHOUT DIFFERENTIAL (02/25/2025 1:26 PM CDT) [facility] WBC 5.6 3.8 - 10.8 Thousand/u L [facility] RBC 4.31 4.20 - 5.80 Million/uL [facility] HEMOGLOBIN 11.8(L) 13.2 - 17.1 g/dL [facility] HEMATOCRIT 38.1(L) 38.5 - 50.0 % [facility] MCV 88.4 80.0 - 100.0 fL [facility] MCH 27.4 27.0 - 33.0 pg [facility] MCHC 31.0(L) 32.0 - 36.0 g/dL [facility] Comment: For adults, a slight decrease in the calculated MCHC value (in the range of 30 to 32 g/dL) is most likely not clinically significant; however, it should be interpreted with caution in correlation with other red cell parameters and the patient's clinical condition. RDW 20.2(H) 11.0 - 15.0 % [facility] PLATELETS 205 140 - 400 Thousand/u L [facility] MPV 9.9 7.5 - 12.5 fL [facility] Comment: FASTING:NO FASTING: NO Test Performed at: [facility] [address] Philippe Berrios MD Blood 02/25/2025 1:26 PM CDT 02/25/2025 1:27 PM CDT Zachary Allen MD HEMATOLOGY ORDERABLES Final Res ult Performing Organization Address [facility] Co de Phone Number [facility] [phone] [facility] [address] * (ABNORMAL) TSH (02/25/2025 1:26 PM CDT) Pathologist [facility] TSH 10.20(H) 0.40 - 4.50 mIU/L [facility] Comment: Test Performed at: [facility] [address] Philippe Berrios MD Blood 02/25/2025 1:26 PM CDT 02/25/2025 1:27 PM CDT Zachary Allen MD CHEMISTRY ORDERABLES Final Resu lt Performing Organization Address [facility] de Phone Number [facility] [phone] [facility] [address] * PSA (02/25/2025 1:26 PM CDT) Pathologist [facility] PSA 0.35 < OR = 4.00 ng/mL [facility] Comment: The total PSA value from this assay system is standardized against the WHO standard. The test result will be approximately 20% lower when compared to the equimolar-standardized total PSA ([place]). Comparison of serial PSA results should be interpreted with this fact in mind. This test was performed using the Siemens chemiluminescent method. Values obtained from different assay methods cannot be used interchangeably. PSA levels, regardless of value, should not be interpreted as absolute evidence of the presence or absence of disease. FASTING:NO FASTING: NO Test Performed at: [facility] [address] [facility] [place] [address] Philippe Berrios MD Blood 02/25/2025 1:26 PM CDT 02/25/2025 1:27 PM CDT Zachary Allen MD CHEMISTRY ORDERABLES Final Resu lt Performing Organization Address City/[facility]/ZIP [facility] Phone Number [facility] [phone] [facility] [address] [facility] [place] [address] * (ABNORMAL) HEMOGLOBIN A1C (02/25/2025 1:26 PM CDT) HEMOGLOBIN A1C 8.3(H) <5.7 % of total Hgb [facility] Comment: For someone without known diabetes, a hemoglobin A1c value of 6.5% or greater indicates that they may have diabetes and this should be confirmed with a follow-up test. For someone with known diabetes, a value <7% indicates that their diabetes is well controlled and a value greater than or equal to 7% indicates suboptimal control. A1c targets should be individualized based on duration of diabetes, age, comorbid conditions, and other considerations. Currently, no consensus exists regarding use of hemoglobin A1c for diagnosis of diabetes for children. ESTIMATED AVERAGE GLUCOSE (MG/DL) 192 mg/dL [facility] ESTIMATED AVERAGE GLUCOSE (MMOL/L) 10.6 mmol/L [facility] Work[facility] Comment: FASTING:NO FASTING: NO Test Performed at: [facility] [place] [address] [place] [id number] Philippe Berrios Blood 02/25/2025 1:26 PM CDT 02/25/2025 1:27 PM CDT Zachary Allen MD CHEMISTRY ORDERABLES Final Resu lt [facility] [phone] [facility] [address] [place] [id number] * FERRITIN (02/25/2025 1:26 PM CDT) FERRITIN 67 24 - 380 ng/mL [facility] Comment: Test Performed at: [facility] [address] [facility] [place] [address] Philippe Berrios MD Blood 02/25/2025 1:26 PM CDT 02/25/2025 1:27 PM CDT Zachary Allen MD CHEMISTRY ORDERABLES Final Resu lt Performing Organization Address [facility] Co de Phone Number [facility] [phone] [facility] [address] [facility] [place] [address] * VITAMIN B12 LEVEL (02/25/2025 1:26 PM CDT) [facility] VITAMIN B12 312 200 - 1100 pg/mL [facility] Comment: Please Note: Although the reference range for vitamin B12 is 200-1100 pg/mL, it has been reported that between 5 and 10% of patients with values between 200 and 400 pg/mL may experience neuropsychiatric and hematologic abnormalities due to occult B12 deficiency; less than 1% of patients with values above 400 pg/mL will have symptoms. Test Performed at: [facility] [address] [place] [address] [place] [address] Philippe Berrios MD 02/25/2025 1:26 PM CDT 02/25/2025 1:27 PM CDT Zachary Allen MD CHEMISTRY ORDERABLES Final Resu lt Performing Organization Address [facility] Co de Phone Number [facility] [phone] [employer] [address] [facility] [place] [address] * (ABNORMAL) LIPID PANEL (02/25/2025 1:26 PM CDT) [facility] CHOLESTEROL 84 <200 mg/dL [facility] HDL 28(L) > OR = 40 mg/dL [facility] TRIGLYCERIDE 163(H) <150 mg/dL [facility] LDL CALCULATED 32 mg/dL (calc) [facility] Comment: Reference range: <100 Desirable range <100 mg/dL for primary prevention; <70 mg/dL for patients with CHD or diabetic patients with > or = 2 CHD risk factors. LDL-C is now calculated using the Richelle calculation, which is a validated novel method providing better accuracy than the Friedewald equation in the estimation of LDL-C. Kristian SS et al. XAVI. 2013;310(01): 2064-9165 (http://education.CarHound/faq/YKM926) CHOL/HDL RATIO 3.0 <5.0 (calc) [facility] NON-HDL CHOLESTEROL 56 <130 mg/dL (calc) [facility] Comment: For patients with diabetes plus 1 major ASCVD risk factor, treating to a non-HDL-C goal of <100 mg/dL (LDL-C of <70 mg/dL) is considered a therapeutic option. Test Performed at: [facility] [address] [place] [address] Philippe Berrios MD Blood 02/25/2025 1:26 PM CDT 02/25/2025 1:27 PM CDT us Zachary Allen MD CHEMISTRY ORDERABLES Final Resu lt [facility] [phone] [facility] [address] [place] [address] * (ABNORMAL) COMPREHENSIVE METABOLIC PANEL (02/25/2025 1:26 PM CDT) GLUCOSE 132 65 - 139 mg/dL [facility] Comment: Non-fasting reference interval BUN 70(H) 7 - 25 mg/dL [facility] CREATININE 1.62(H) 0.70 - 1.35 mg/dL [facility] GFR 47(L) > OR = 60 mL/min/1.7 3m2 [facility] BUN/CREAT RATIO 43(H) 6 - 22 (calc) [facility] SODIUM 136 135 - 146 mmol/L [facility] POTASSIUM 4.6 3.5 - 5.3 mmol/L [facility] CHLORIDE 103 98 - 110 mmol/L [facility] CO2 26 20 - 32 mmol/L [facility] CALCIUM 10.1 8.6 - 10.3 mg/dL [facility] TOTAL PROTEIN 7.2 6.1 - 8.1 g/dL [facility] ALBUMIN 4.2 3.6 - 5.1 g/dL [facility] GLOBULIN 3.0 1.9 - 3.7 g/dL (calc) [facility] ALBUMIN/GLOBULIN RATIO 1.4 1.0 - 2.5 (calc) [facility] BILIRUBIN TOTAL 0.4 0.2 - 1.2 mg/dL [facility] ALKALINE PHOSPHATASE 86 35 - 144 U/L [facility] AST 13 10 - 35 U/L [facility] ALT 13 9 - 46 U/L [facility] Comment: Test Performed at: [facility] [address] [place] [address] Philippe Berrios MD Blood 02/25/2025 1:26 PM CDT 02/25/2025 1:27 PM CDT us Zachary Allen MD CHEMISTRY ORDERABLES Final Resu lt [facility] [phone] [facility] [address] [facility] [place] [address] from Last 3 Months Insurance [facility] [employer] [facility] H[facility] Care Teams Assistance Coordinator Relationship Specialty Start Date End Date Zachary Allen MD [address] [place] [address] PCP - General Internal Medicine 02/04/25
--- OUTSIDE RECORDS SUMMARY | 2025-04-04 08:13 | XMS_ITS | Clinical Summary ---
Author Organization 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,non-owned Affiliates and Associated Physician Practices is amultiple site organization consisting of ambulatory clinics and hospital sitesin [place], [place], [place] and [place]. This disclosure is being madepursuant to the Care Everywhere program and may not contain all information available regarding this patient. Last updated 18.[facility] Allergies No known active allergies Medications * Be aware that medications may not be up to date on this document. Alwaysverify current medications with the patient. nitrofurantoin monohyd macro crystals (MACROBID) 100 MG capsule Take 1 Cap by mouth 2 times daily. 20 Cap 0 03/18/2012 Active phenazopyridine (PYRIDIUM) 200 MG tablet Take 1 Tab by mouth 3 times daily as needed. 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 Gender Identity Not on file Sexual Orientation Not on file Last Filed Vital Signs Vital Sign Reading Time Taken Comments Blood Pressure 157/82 03/17/2012 11:30 PM CDT Pulse 100 03/17/2012 11:21 PM CDT Temperature 36.7 C (98 F) 03/17/2012 11:21 PM CDT Respiratory Rate 18 03/17/2012 11:21 PM CDT Oxygen Saturation 95% 03/17/2012 11:30 PM CDT Inhaled Oxygen Concentration - - Weight 176.9 kg (390 lb) 03/17/2012 11:21 PM CDT Height 182.9 cm (6') 03/17/2012 11:21 PM CDT Body Mass Index 52.89 03/17/2012 11:21 PM CDT Plan of Treatment Health Maintenance Due Date Last Done Comments COLOGUARD (AGES 45-75) - COL ON CA SCREENING 1960 COLON MONITORING 1960 COLONOSCOPY - COLON CA SCREENING 1960 CT COLONOGRAPHY - COLON CA SCREENING 1960 Colorectal Cancer Screening 1960 FIT - COLON CA SCREENING 1960 FLEX SIG - COLON CA SCREENING 1960 LIPID TESTING 1960 HIV SCREENING 1975 HEPATITIS C SCREENING 08/23/1978 DTAP/TDAP/TD VACCINES (1 - Tdap) 1979 PNEUMOCOCCAL VACCINE 50+ (1 of 1 - PCV) 2010 ZOSTER VACCINE (1 of 2) 2010 DEPRESSION SCREENING 07/11/2024 COVID-19 VACCINE ( - 2023-2 5 season) 2025 INFLUENZA VACCINE (#1) 2025 Respiratory Syncytial Virus (RSV) Vaccine Pt: or over 60 yrs (1 - 1-dose 75+ series) 2035 HEPATITIS B VACCINE Aged Out No longe r eligible based on patient's age to complete this topic HIB VACCINE Aged Out No longer eligi ble based on patient's age to complete this topic HPV VACCINE Aged Out No longer eligi ble based on patient's age to complete this topic MENINGOCOCCAL (Group B) VACC INE SHARED DECISION-MAKING Aged Out No longer eligibl e based on patient's age to complete this topic MENINGOCOCCAL GROUPS A/C/Y/W VACCINE Aged Out No longer eligible b ased on patient's age to complete this topic Insurance [facility] [address] [facility] Address: [address] [address] 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
--- OUTSIDE RECORDS SUMMARY | 2025-04-04 08:13 | XMS_ITS | Clinical Summary ---
Author Organization [facility] Address [address] [place] [address] Care Team Providers Care Health Screener Name Role Phone Zachary Allen MD Primary Care Provider [phone] Allergies Active Allergy Reactions Criticality Noted Date Comments Sulfa Antibiotics Hives 05/07/2023 Medications pantoprazole EC 40 MG tabletIndicati ons:GERD-Relat ed Laryngitis (Inactive) Take 1 tablet by mouth daily. Indications: GERD-RELATED LARYNGITIS (INACTIVE) Active levothyroxine (SYNTHROID) 200 MCG tabletIndicati ons:Hypothyroi dism Take 1 tablet by mouth every morning. Indications: Underactive Thyroid Total daily dose = 225 mcg Active finasteride 5 MG tabletIndicati ons:Benign prostatic hyperplasia (BPH) suspected Take 1 tablet by mouth nightly at bedtime. Indications: Benign prostatic hyperplasia (BPH) suspected Active allopurinol 300 MG tabletIndicati ons:Gout Take 1 tablet by mouth daily. Indications: Gout 10/23/19 21 Active albuterol sulfate HFA 108 (90 Base) MCG/ACT inhalerIndicat ions:Shortness of breath,Wheezin g Inhale 2 puffs into the lungs every 6 (six) hours as needed for Shortness of breath or Wheezing. Indications: Shortness of breath, Wheezing 10/23/19 21 Active tamsulosin (FLOMAX) 0.4 MG CapIndications :Benign prostatic hyperplasia (BPH) suspected [The details of the medication are not available because there are pending changes by a home health clinician.] 30 capsule 05/25/20 23 Active Additional Information Patient taking differently:0.4 mg OralDaily, Reported on 03/15/2025 metFORMIN (GLUCOPHAGE) 1000 MG tabletIndicati ons:Diabetes Mellitus Take 1 tablet by mouth 2 (two) times daily with meals. Indications: Diabetes Active cholestyramine (QUESTRAN) 4 GM/DOSE powderIndicati ons:Increased LDL Cholesterol Take 0.5 packets by mouth daily. Indications: Increase in LDL Cholesterol Active HUMALOG KWIKPEN 100 UNIT/ML injection (PEN)Indicatio ns:Diabetes Mellitus Inject 0-30 Units into the skin 3 (three) times daily before meals. Indications: Diabetes 06/25/20 24 Active magnesium oxide (MAG-OX) 400 (240 Mg) MG tabletIndicati ons:Nutritiona l Support Take 1 tablet (400 mg total) by mouth daily. 10 tablet 02/06/20 25 Active atorvastatin (LIPITOR) 40 MG tabletIndicati ons:Hyperchole sterolemia Take 1 tablet (40 mg total) by mouth nightly at bedtime. 30 tablet 1 02/26/20 25 Active carvedilol (COREG) 25 MG tabletIndicati ons:Hypertensi on Take 1 tablet (25 mg total) by mouth 2 (two) times daily. 60 tablet 1 02/26/20 25 Active levothyroxine (SYNTHROID) 25 MCG tabletIndicati ons:Hypothyroi dism Take 1 tablet by mouth every morning. Indications: Underactive Thyroid Total daily dose = 225 mcg Active amLODIPine (NORVASC) 5 MG tabletIndicati ons:Hypertensi on Take 1 tablet (5 mg total) by mouth daily. 30 tablet 03/24/20 25 Active furosemide (LASIX) 80 MG tabletIndicati ons:Diuresis Take 1 tablet (80 mg total) by mouth 2 (two) times daily. 60 tablet 03/24/20 25 Active spironolactone (ALDACTONE) 25 MG tabletIndicati ons:Diuresis Take 0.5 tablets (12.5 mg total) by mouth daily. 30 tablet 03/25/20 25 Active amLODIPine (NORVASC) 10 MG tablet Take 1 tablet (10 mg total) by mouth daily. 30 tablet 1 02/26/20 25 025 Discontinued furosemide (LASIX) 20 MG tablet Take 3 tablets (60 mg total) by mouth daily. 90 tablet 1 02/26/20 25 025 Discontinued(S top Taking at Discharge) telmisartan (MICARDIS) 40 MG tablet Take 1 tablet (40 mg total) by mouth daily. 30 tablet 1 02/26/20 025 Discontinued(S top Taking at Discharge) ciprofloxacin (CIPRO) 500 MG tablet Take 1 tablet (500 mg total) by mouth 2 (two) times daily. For 14 days beginning on 02/28/25 02/29/20 025 Discontinued(S top Taking at Discharge) Active Problems Problem Noted Date Diagnosed Date CHF exacerbation ([facility]) 03/15/2025 Diabetes ([facility]) 02/04/2025 Chronic heart failure with p reserved ejection fraction (HFpEF) ([facility]) 01/22/2025 Cellulitis 07/18/2023 Sepsis ([facility]) 05/07/2023 Cholecystitis 08/20/2020 Cholelithiasis 08/19/2020 Encounters Date Type Department Care Team Description 04/02/2025 11:30 AM CDT Home Care Visit [facility] Home Care [address] [phone] Shikha Posada, PT PT INITIAL EVALUATION 04/01/[address] [facility] [address] [place], [place] [address] Magali Rodriguez RN Follow Up Call (CHF discharge callback) 03/29/2025 12:00 PM CDT Home Care Visit [address] [phone] Cate Davis, TAMMIE SN OASIS START OF CARE 03/29/2025 Plan of Care Documentation [facility] Home [address] [phone] 03/26/2025 Hospital Follow-up Call [facility] [place] [address] Maribeth Rossi LPN Follow Up Call (NANCIE 03/15-03/24/25) 03/22/2025 Telephone [facility] [place] [address] Inessa Arriola MD Appointment Request 03/20/2025 Travel 03/15/2025 11:04 AM CDT - 03/24/2025 1:47 PM CDT Hospital Encounter [facility] [place] [address] Ramin Oliver MD Jumean, Khaled, MD Suresh, Bon Salinas, Evan Templeton MD McGowen, Gina Arce, MD Pelaez, Shaye Gutierrez, Gina Jane PA-C Decreased Oxygen Level With Symptoms Discharge Disposition: Home with Home Health Care 03/15/2025 Travel 02/25/2025 2:15 PM CDT Office Visit [facility] [address] [place] [address] Marita Hargrove APRN [facility] Follow Up (Hypoxic Respiratory Failure); CHF (HFpEF) 02/25/2025 Travel 02/11/2025 6:58 AM CDT - 02/11/2025 11:59 PM CDT Hospital Encounter [facility] [place] [address] Inessa Arriola MD Discharge Disposition: Home or Self Care (Routine Discharge) 02/11/2025 Results Follow-Up [facility] [place] [address] Yessy Bhandari, TAMMIE BASIC METABOLIC PANEL 02/11/2025 Travel 02/05/2025 Telephone [facility] Medical Group Multispecialty Care - [facility] [address] [facility] [place] [address] Fabio Hernandez MD Hospital Follow Up 02/04/2025 Orders Only [facility] [address] [place] [address] Inessa Arriola MD 02/01/2025 Telephone [facility] Medical Group Pulmonology Specialty [facility] [id number] [place] [phone] Tam Capellan DO Appointment Request 01/22/2025 1:19 PM CDT - 02/04/2025 6:53 PM CDT Hospital Encounter [facility] Telemetry Unit B [facility] [place] [address] Joana Hassan MD D'Souza, MD Atul Wilson Deborah, MD Tran, Claudio Loya MD Decreased Oxygen Level Asymptomatic Discharge Disposition: Home or Self Care (Routine Discharge) 01/22/2025 Travel from Last 3 Months Social History Tobacco Use Types Packs/Day Years Used Date Smoking Tobacco: Former Smokeless Tobacco: Never Tobacco Cessation:Counseling Given: Not Answered Alcohol Use Standard Drinks/Week Comments Never 0 (1 standard drink = 0.6 oz pur e alcohol) OASIS D0700: Social Isolation Answer Da te Recorded Frequency of experiencing loneliness or isolatio n Rarely 03/29/2025 OASIS A1250: Transportation Answer Date Recorded Lack of Transportation (Medical) No 03/29/2025 Lack of Transportation (Non-Medical) No 03/29/2025 Patient Unable or Declines to Respond No 03/29/2025 OASIS B1300: Health Literacy Answer Joseluis e Recorded Frequency of needing help to read materials from doctor or pharmacy Never 03/29/[address] [facility] Utilities Answer Date Recorded In the past 12 months has e [place], gas, oil, or water [place] threatened to shut off services in your home? No 03/15/2025 Humiliation, Afraid, Rape, and Kick questionnair e Answer Date Recorded Within the last year, have y ou been afraid of your partner or ex-partner? No 03/15/2025 Within the last year, have y ou been humiliated or emotionally abused in other ways by your partner or ex-partner? No Within the last year, have y ou been kicked, hit, slapped, or otherwise physically hurt by your partner or ex-partner? No 03/15/2025 Within the last year, have y ou been raped or forced to have any kind of sexual activity by your partner or ex-partner? No 03/15/2025 Social Connection and Isolat ion Panel [NHANES] Answer Date Recorded In a typical week, how many times do you talk on the phone with family, friends, or neighbors? More than three times a week 01/22/2025 How often do you get togethe r with friends or relatives? Twice a week 01/22/2025 How often do you attend chur or congregational services? 1 to 4 times per year 01/22/2025 Do you belong to any clubs o r organizations such as worship groups, unions, fraternal or athletic groups, or school groups? No 01/22/2025 How often do you attend meet ings of the clubs or organizations you belong to? Never 01/22/2025 Are you , , di vorced, , never , or living with a partner? 01/22/2025 AUDIT-C Answer Date Recorded Q1: How often do you have a drink containing alc ohol? Monthly or less 01/22/2025 Q2: How many drinks containi ng alcohol do you have on a typical day when you are drinking? 1 or 2 01/22/2025 Q3: How often do you have si x or more drinks on one occasion? Never 01/22/2025 Overall Financial Resource Strain (CARDIA) Answe r Date Recorded How hard is it for you to pa y for the very basics like food, housing, medical care, and heating? Not hard at all 03/15/2025 [facility] [place] Occupat ional [facility] - Occupational Stress Questionnaire Answer Date Recorded Do you feel stress - tense, restless, nervous, or anxious, or unable to sleep at night because your mind is troubled all the time - these days? To some extent 01/22/2025 Hunger Vital Sign Answer Date Recorded Within the past 12 months, y ou worried that your food would run out before you got the money to buy more. Never true 03/15/20 25 Within the past 12 months, t he food you bought just didn't last and you didn't have money to get more. Never true 03/15/2025 PRAPARE - Transportation Answer Date Re corded In the past 12 months, has l ack of transportation kept you from medical appointments or from getting medications? No 11/2024 In the past 12 months, has l ack of transportation kept you from meetings, work, or from getting things needed for daily living? No 03/15/2025 Housing Stability Vital Sign Answer Joseluis e Recorded In the last 12 months, was t here a time when you were not able to pay the mortgage or rent on time? No 05/07/2023 In the last 12 months, how many places have you lived? 1 05/07/2023 In the last 12 months, was t here a time when you did not have a steady place to sleep or slept in a senior care (including now)? No 05/07/2023 Housing Stability Vital Sign Answer Joseluis e Recorded In the last 12 months, was t here a time when you were not able to pay the mortgage or rent on time? No 03/15/2025 In the past 12 months, how m any times have you moved where you were living? 0 03/15/2025 At any time in the past 12 m [facility], were you homeless or living in a senior care (including now)? No 03/15/2025 Sex and Gender Information Value Date Recorded Sex Assigned at Male 01/22/2025 1:19 PM CDT Legal Sex Male 6:44 AM TAI [employer]I IN[employer] Gender Identity Not on file Sexual Orientation Not on file Last Filed Vital Signs Vital Sign Reading Time Taken Comments Blood Pressure 138/78 04/02/2025 11:31 AM CDT Pulse 74 04/02/2025 11:31 AM CDT Temperature 36.7 C (98 F) 03/29/2025 1:00 PM CDT Respiratory Rate 18 04/02/2025 11:3 1 AM CDT Oxygen Saturation 96% 04/02/2025 11: 31 AM CDT Inhaled Oxygen Concentration - - Weight 179.7 kg (396 lb 1.6 oz) 03/24/2025 3:30 AM CDT Height 180.3 cm (5' 11) 03/15/2025 11: 10 AM CDT Body Mass Index 55.24 03/15/2025 11:10 AM CDT Plan of Treatment Upcoming Encounters Date Type Department Care Team (Late st Contact Info) Description 04/05/2025 11:00 AM CDT Home Care Visit [address] [place] [address] [address] AndreyТатьяна Mendez, STAGING TECHNICIAN 04/09/2025 10:00 AM CDT Home Care Visit [address] [place] [address] Sourav Negron, FINANCIAL RETIREMENT PLAN SPECIALIST [address] [place], [place] [address] 04/11/2025 11:30 AM CDT Office Visit [facility] [address] [place] [address] Marita Hargrove APRN [facility]. [address] [place] [address] 04/12/2025 9:00 AM CDT Home Care Visit [address] [place] [address] [facility] TECHNIC[facility] 04/12/2025 10:00 AM CDT Home Care [place] [address] [address] Sourav Negron, FINANCIAL RETIREMENT PLAN SPECIALIST [address] [place], [place] [address] 04/15/2025 8:00 AM CDT Home Care Visit [place] [address] [place] [address] Sourav Negron, FINANCIAL RETIREMENT PLAN SPECIALIST [address] [place] [address] 04/18/2025 8:00 AM CDT Home Care Visit [address] [phone] Sourav Negron, FINANCIAL RETIREMENT PLAN SPECIALIST [address] [place], [place] [address] 04/19/2025 8:00 AM CDT Appointment [address] [phone] Niurka Cabral, RN [phone] (Work) 04/22/2025 8:00 AM CDT Home Care Visit [address] [phone] Sourav Negron, FINANCIAL RETIREMENT PLAN SPECIALIST [address] [place] [address] 04/24/2025 8:00 AM CDT Appointment [address] [phone] Shikha Posada, PT [address] [place], [place] [address] 05/22/2025 3:00 PM TAI CHI INSTRUCTOR Office Visit [facility] on [facility] [place], [place] [address] Inessa Arriola MD Three [facility] [address] [place], [place] [phone] Health Maintenance Due Date Last Done Comments Colorectal Cancer Screening Colonoscopy (10 Years) 1960 Kidney Health Evaluation 1960 Annual Physical 1963 Diabetes: Retinopathy Eye Exam 1978 Hepatitis C 1978 Zoster Vaccines (1 of 2) 2010 DTaP, Tdap and Td Vaccines (1 - Tdap) 07/12/2011 07/11/2011 Pneumococcal Vaccine: 50+ Years (2 of 2 - PCV) 02/08/2015 02/08/2014, 11/23/2013 RSV Immunization or 60+ Years (1 - Risk 60-74 years 1-dose series) 2020 PHQ-2 (Physician [place]) 07/11/2024 COVID-19 Vaccine (3 - season) 2025 09/29/2020, 09/08/2020 Hemoglobin A1C 08/28/2025 02/25/2025, 01/08, 11/23/2023, Additional history exists Lipid Panel 01/23/2026 01/23/2025 Meningococcal B Vaccine Aged Out No l onger eligible based on patient's age to complete this topic Meningococcal Vaccine Aged Out No latesha jina eligible based on patient's age to complete this topic RSV Immunizations Under 20 Months Aged Out No longer eligible based on patient's age to complete this topic Goals Goal Patient Goal Type Associated Problems Recent Progress Patient-Stated? Author Patient will return to prior living situation and remain independent in ADLs upon discharge from hospital Lifestyle No Sushma Guadarrama, RN Patient will return to prior living situation and remain independent in ADLs upon discharge from hospital Lifestyle No Sushma Guadarrama, RN Health - patient able to perform ADLs independently Lifestyle No Danielle Contreras RN Medical Devices Implanted Type Area Assistant Golf Coach Device Identifier Shelf Expiration Date Model / Serial / Lot Stent Naviflex Rx Delivery System 10f - [id number] Implanted:Qty: 1 on 08/21/2020 by Kevin Briggs MD at [facility] Stent N/A: Bile Duct [employer] CHARLES ref: [id number] 05/27/2021 [id number] / [id number] Procedures Procedure Name Priority Date/Time Associated Diagnosis Comments POCT GLUCOSE - DOCKED DEVICE Routine 03/24/2025 11:09 AM CDT CBC, AUTO, NO DIFF Routine 03/24/2025 8: 59 AM CDT BASIC METABOLIC PANEL Routine 03/24/2025 8:59 AM CDT MAGNESIUM Routine 03/24/2025 8:59 AM CDT POCT GLUCOSE - DOCKED DEVICE Routine 03/24/2025 5:51 AM CDT POCT GLUCOSE - DOCKED DEVICE Routine 03/23/2025 7:13 PM CDT POCT GLUCOSE - DOCKED DEVICE Routine 03/23/2025 5:15 PM CDT POCT GLUCOSE - DOCKED DEVICE Routine 03/23/2025 11:24 AM CDT CBC, AUTO, NO DIFF Routine 03/23/2025 7: 39 AM CDT BASIC METABOLIC PANEL Routine 03/23/2025 7:39 AM CDT MAGNESIUM Routine 03/23/2025 7:39 AM CDT POCT GLUCOSE - DOCKED DEVICE Routine 03/23/2025 5:58 AM CDT POCT GLUCOSE - DOCKED DEVICE Routine 03/22/2025 7:22 PM CDT POCT GLUCOSE - DOCKED DEVICE Routine 03/22/2025 3:33 PM CDT POCT GLUCOSE - DOCKED DEVICE Routine 03/22/2025 10:51 AM CDT CBC, AUTO, NO DIFF Routine 03/22/2025 7: 30 AM CDT BASIC METABOLIC PANEL Routine 03/22/2025 7:30 AM CDT MAGNESIUM Routine 03/22/2025 7:30 AM CDT POCT GLUCOSE - DOCKED DEVICE Routine 03/22/2025 5:41 AM CDT POCT GLUCOSE - DOCKED DEVICE Routine 03/21/2025 8:44 PM CDT POCT GLUCOSE - DOCKED DEVICE Routine 03/21/2025 3:20 PM CDT POCT GLUCOSE - DOCKED DEVICE Routine 03/21/2025 10:35 AM CDT PRO-BRAIN NATRIURETIC PEPTIDE Routine 03/21/2025 6:49 AM CDT CBC, AUTO, NO DIFF Routine 03/21/2025 6: 49 AM CDT BASIC METABOLIC PANEL Routine 03/21/2025 6:49 AM CDT MAGNESIUM Routine 03/21/2025 6:49 AM CDT POCT GLUCOSE - DOCKED DEVICE Routine 03/21/2025 5:52 AM CDT POCT GLUCOSE - DOCKED DEVICE Routine 03/20/2025 7:31 PM CDT POCT GLUCOSE - DOCKED DEVICE Routine 03/20/2025 3:16 PM CDT XR CHEST PA+LAT Today 03/20/2025 11:26 AM CDT POCT GLUCOSE - DOCKED DEVICE Routine 03/20/2025 10:36 AM CDT POCT GLUCOSE - DOCKED DEVICE Routine 03/20/2025 7:46 AM CDT CBC, AUTO, NO DIFF Routine 03/20/2025 6: 50 AM CDT BASIC METABOLIC PANEL Routine 03/20/2025 6:50 AM CDT MAGNESIUM Routine 03/20/2025 6:50 AM CDT POCT GLUCOSE - DOCKED DEVICE Routine 03/19/2025 7:38 PM CDT POCT GLUCOSE - DOCKED DEVICE Routine 03/19/2025 3:38 PM CDT POCT GLUCOSE - DOCKED DEVICE Routine 03/19/2025 11:43 AM CDT POCT GLUCOSE - DOCKED DEVICE Routine 03/19/2025 5:54 AM CDT MAGNESIUM Routine 03/19/2025 5:45 AM CDT CBC, AUTO, NO DIFF Routine 03/19/2025 5: 45 AM CDT BASIC METABOLIC PANEL Routine 03/19/2025 5:45 AM CDT POCT GLUCOSE - DOCKED DEVICE Routine 03/18/2025 7:32 PM CDT POCT GLUCOSE - DOCKED DEVICE Routine 03/18/2025 2:54 PM CDT POCT GLUCOSE - DOCKED DEVICE Routine 03/18/2025 11:03 AM CDT CBC, AUTO, NO DIFF Routine 03/18/2025 6: 38 AM CDT BASIC METABOLIC PANEL Routine 03/18/2025 6:38 AM CDT POCT GLUCOSE - DOCKED DEVICE Routine 03/18/2025 5:44 AM CDT POCT GLUCOSE - DOCKED DEVICE Routine 03/17/2025 7:19 PM CDT POCT GLUCOSE - DOCKED DEVICE Routine 03/17/2025 4:03 PM CDT POCT GLUCOSE - DOCKED DEVICE Routine 03/17/2025 10:20 AM CDT CBC, AUTO, NO DIFF Routine 03/17/2025 9: 39 AM CDT BASIC METABOLIC PANEL Routine 03/17/2025 9:39 AM CDT HC URINALYSIS AUTO W/O MICRO STAT 03/16/2025 8:27 PM CDT POCT GLUCOSE - DOCKED DEVICE Routine 03/16/2025 7:11 PM CDT POCT GLUCOSE - DOCKED DEVICE Routine 03/16/2025 3:35 PM CDT POCT GLUCOSE - DOCKED DEVICE Routine 03/16/2025 11:17 AM CDT POCT GLUCOSE - DOCKED DEVICE Routine 03/16/2025 6:04 AM CDT BASIC METABOLIC PANEL Routine 03/16/2025 5:42 AM CDT CBC W/DIFF AUTOMATED Routine 03/16/2025 5:42 AM CDT PROCALCITONIN (PCT) Routine 03/16/2025 5 :39 AM CDT POCT GLUCOSE - DOCKED DEVICE Routine 03/15/2025 7:59 PM CDT POCT GLUCOSE - DOCKED DEVICE Routine 03/15/2025 4:20 PM CDT BLOOD GAS, ARTERIAL LAB Routine 03/15/20 4:20 PM CDT CULTURE, BACTERIA, BLOOD STAT 03/15/2025 1:12 PM CDT CULTURE, BACTERIA, BLOOD STAT 03/15/2025 1:12 PM CDT LACTIC ACID W REFLEX (SEPSIS) STAT 03/15/2025 1:12 PM CDT XR CHEST PORTABLE STAT 03/15/2025 12: 21 PM CDT BLOOD GAS, ARTERIAL LAB STAT 03/15/20 12:03 PM CDT ECG 12-LEAD Routine 03/15/2025 12:00 PM CDT PRO-BRAIN NATRIURETIC PEPTIDE STAT 03/15/2025 11:59 AM CDT TROPONIN, QUANT STAT 03/15/2025 11:59 AM CDT BASIC METABOLIC PANEL STAT 03/15/2025 11:59 AM CDT PARTIAL THROMBOPLASTIN TIME,PTT STAT 03/15/2025 11:59 AM CDT PROTHROMBIN TIME, VENOUS STAT 03/15/2025 11:59 AM CDT CBC W/DIFF AUTOMATED STAT 03/15/2025 11:59 AM CDT BASIC METABOLIC PANEL Routine 02/11/2025 7:09 AM CDT CHF (congestive heart failure) ([facility]) POCT GLUCOSE - DOCKED DEVICE Routine 02/04/2025 3:19 PM CDT HOME O2 EVAL Routine 02/04/2025 1:01 PM CDT POCT GLUCOSE - DOCKED DEVICE Routine 02/04/2025 11:39 AM CDT CBC W/DIFF AUTOMATED Routine 02/04/2025 6:26 AM CDT BASIC METABOLIC PANEL Routine 02/04/2025 6:26 AM CDT MAGNESIUM Routine 02/04/2025 6:26 AM CDT POCT GLUCOSE - DOCKED DEVICE Routine 02/04/2025 5:31 AM CDT POCT GLUCOSE - DOCKED DEVICE Routine 02/03/2025 7:39 PM CDT POCT GLUCOSE - DOCKED DEVICE Routine 02/03/2025 3:43 PM CDT POCT GLUCOSE - DOCKED DEVICE Routine 02/03/2025 11:15 AM CDT POCT GLUCOSE - DOCKED DEVICE Routine 02/03/2025 5:49 AM CDT CBC W/DIFF AUTOMATED Routine 02/03/2025 4:11 AM CDT BASIC METABOLIC PANEL Routine 02/03/2025 4:11 AM CDT MAGNESIUM Routine 02/03/2025 4:11 AM CDT POCT GLUCOSE - DOCKED DEVICE Routine 02/02/2025 7:40 PM CDT POCT GLUCOSE - DOCKED DEVICE Routine 02/02/2025 3:31 PM CDT POCT GLUCOSE - DOCKED DEVICE Routine 02/02/2025 11:59 AM CDT XR CHEST PORTABLE MICHAEL 02/02/2025 9:2 2 AM CDT POCT GLUCOSE - DOCKED DEVICE Routine 02/02/2025 8:16 AM CDT MAGNESIUM Routine 02/02/2025 6:00 AM CDT CBC W/DIFF AUTOMATED Routine 02/02/2025 6:00 AM CDT BASIC METABOLIC PANEL Routine 02/02/2025 6:00 AM CDT POCT GLUCOSE - DOCKED DEVICE Routine 02/02/2025 5:50 AM CDT POCT GLUCOSE - DOCKED DEVICE Routine 02/01/2025 9:23 PM CDT POCT GLUCOSE - DOCKED DEVICE Routine 02/01/2025 7:50 PM CDT POCT GLUCOSE - DOCKED DEVICE Routine 02/01/2025 4:53 PM CDT POCT GLUCOSE - DOCKED DEVICE Routine 02/01/2025 11:47 AM CDT MAGNESIUM Routine 02/01/2025 9:30 AM CDT CBC W/DIFF AUTOMATED Routine 02/01/2025 9:30 AM CDT BASIC METABOLIC PANEL Routine 02/01/2025 9:30 AM CDT URINE BACTERIA CULTURE Routine 9:23 AM CDT POCT GLUCOSE - DOCKED DEVICE Routine 02/01/2025 5:48 AM CDT POCT GLUCOSE - DOCKED DEVICE Routine 01/31/2025 7:14 PM CDT HC URINALYSIS AUTO W/O MICRO Routine 01/31/2025 5:54 PM CDT POCT GLUCOSE - DOCKED DEVICE Routine 01/31/2025 4:30 PM CDT POCT GLUCOSE - DOCKED DEVICE Routine 01/31/2025 10:44 AM CDT POCT GLUCOSE - DOCKED DEVICE Routine 01/31/2025 5:57 AM CDT PROCALCITONIN (PCT) Routine 01/31/2025 5 :50 AM CDT CBC W/DIFF AUTOMATED Routine 01/31/2025 5:50 AM CDT BASIC METABOLIC PANEL Routine 01/31/2025 5:50 AM CDT POCT GLUCOSE - DOCKED DEVICE Routine 01/30/2025 8:15 PM CDT POCT GLUCOSE - DOCKED DEVICE Routine 01/30/2025 4:38 PM CDT POCT GLUCOSE - DOCKED DEVICE Routine 01/30/2025 11:04 AM CDT XR CHEST PORTABLE TIMED 01/30/2025 8:1 1 AM CDT POCT GLUCOSE - DOCKED DEVICE Routine 01/30/2025 6:13 AM CDT CBC W/DIFF AUTOMATED Routine 01/30/2025 6:11 AM CDT BASIC METABOLIC PANEL Routine 01/30/2025 6:11 AM CDT POCT GLUCOSE - DOCKED DEVICE Routine 01/29/2025 9:09 PM CDT POCT GLUCOSE - DOCKED DEVICE Routine 01/29/2025 3:30 PM CDT POCT GLUCOSE - DOCKED DEVICE Routine 01/29/2025 11:33 AM CDT POCT GLUCOSE - DOCKED DEVICE Routine 01/29/2025 6:02 AM CDT CBC W/DIFF AUTOMATED Routine 01/29/2025 5:30 AM CDT BASIC METABOLIC PANEL Routine 01/29/2025 5:30 AM CDT POCT GLUCOSE - DOCKED DEVICE Routine 01/28/2025 7:34 PM CDT POCT GLUCOSE - DOCKED DEVICE Routine 01/28/2025 3:38 PM CDT POCT GLUCOSE - DOCKED DEVICE Routine 01/28/2025 10:49 AM CDT CBC W/DIFF AUTOMATED Routine 01/28/2025 6:07 AM CDT BASIC METABOLIC PANEL Routine 01/28/2025 6:07 AM CDT POCT GLUCOSE - DOCKED DEVICE Routine 01/28/2025 5:35 AM CDT POCT GLUCOSE - DOCKED DEVICE Routine 01/27/2025 8:25 PM CDT XR CHEST PORTABLE MICHAEL 01/27/2025 4:3 8 PM CDT POCT GLUCOSE - DOCKED DEVICE Routine 01/27/2025 4:12 PM CDT POCT GLUCOSE - DOCKED DEVICE Routine 01/27/2025 11:26 AM CDT BASIC METABOLIC PANEL Routine 01/27/2025 10:00 AM CDT CBC W/DIFF AUTOMATED Routine 01/27/2025 10:00 AM CDT POCT GLUCOSE - DOCKED DEVICE Routine 01/27/2025 5:33 AM CDT POCT GLUCOSE - DOCKED DEVICE Routine 01/26/2025 8:24 PM CDT POCT GLUCOSE - DOCKED DEVICE Routine 01/26/2025 3:36 PM CDT POCT GLUCOSE - DOCKED DEVICE Routine 01/26/2025 11:55 AM CDT BASIC METABOLIC PANEL Routine 01/26/2025 7:09 AM CDT CBC W/DIFF AUTOMATED Routine 01/26/2025 7:09 AM CDT POCT GLUCOSE - DOCKED DEVICE Routine 01/26/2025 6:09 AM CDT POCT GLUCOSE - DOCKED DEVICE Routine 01/25/2025 8:42 PM CDT POCT GLUCOSE - DOCKED DEVICE Routine 01/25/2025 3:41 PM CDT CBC W/DIFF AUTOMATED Routine 01/25/2025 2:50 PM CDT BASIC METABOLIC PANEL Routine 01/25/2025 2:50 PM CDT POCT GLUCOSE - DOCKED DEVICE Routine 01/25/2025 11:31 AM CDT POCT GLUCOSE - DOCKED DEVICE Routine 01/25/2025 5:42 AM CDT POCT GLUCOSE - DOCKED DEVICE Routine 01/24/2025 9:06 PM CDT POCT GLUCOSE - DOCKED DEVICE Routine 01/24/2025 3:51 PM CDT POCT GLUCOSE - DOCKED DEVICE Routine 01/24/2025 11:08 AM CDT CBC W/DIFF AUTOMATED Routine 01/24/2025 9:19 AM CDT BASIC METABOLIC PANEL Routine 01/24/2025 9:19 AM CDT POCT GLUCOSE - DOCKED DEVICE Routine 01/24/2025 5:36 AM CDT POCT GLUCOSE - DOCKED DEVICE Routine 01/23/2025 8:05 PM CDT POCT GLUCOSE - DOCKED DEVICE Routine 01/23/2025 3:25 PM CDT POCT GLUCOSE - DOCKED DEVICE Routine 01/23/2025 11:47 AM CDT USE ECHOCARDIOGRAM W CON Today 01/23/2025 9:47 AM CDT POCT GLUCOSE - DOCKED DEVICE Routine 01/23/2025 5:40 AM CDT FERRITIN Routine 01/23/2025 5:31 AM CDT THYROXINE, FREE (FT4) Routine 01/23/2025 5:31 AM CDT MAGNESIUM Routine 01/23/2025 5:31 AM CDT HEMOGLOBIN, GLYCOSYLATED Routine 01/23/2025 5:31 AM CDT BASIC METABOLIC PANEL Routine 01/23/2025 5:31 AM CDT CBC W/DIFF AUTOMATED Routine 01/23/2025 5:31 AM CDT TSH W/REFLEX Routine 01/23/2025 5:31 AM CDT LIPID PANEL Routine 01/23/2025 5:31 AM CDT POCT GLUCOSE - DOCKED DEVICE Routine 01/22/2025 8:51 PM CDT LACTIC ACID W REFLEX (SEPSIS) TIMED 01/22/2025 7:27 PM CDT POCT GLUCOSE - DOCKED DEVICE Routine 01/22/2025 5:50 PM CDT LACTIC ACID W REFLEX (SEPSIS) TIMED 01/22/2025 4:03 PM CDT ECG 12-LEAD Routine 01/22/2025 2:00 PM CDT CORONAVIRUS (COVID 19) STAT 1:54 PM CDT PRO-BRAIN NATRIURETIC PEPTIDE STAT 01/22/2025 1:48 PM CDT D-DIMER, QUANTITATIVE STAT 01/22/2025 1:48 PM CDT MAGNESIUM STAT 01/22/2025 1:48 PM CDT LACTIC ACID W REFLEX (SEPSIS) STAT 01/22/2025 1:48 PM CDT TROPONIN, QUANT STAT 01/22/2025 1:48 PM CDT COMPREHENSIVE METABOLIC PANEL STAT 01/22/2025 1:48 PM CDT CBC W/DIFF AUTOMATED STAT 01/22/2025 1:48 PM CDT IRON SAT PANEL (IRON,IBC,%SAT) Routine 01/22/2025 1:47 PM CDT XR CHEST PORTABLE STAT 01/22/2025 1:4 4 PM CDT from Last 3 Months Results * (ABNORMAL) POCT glucose (03/24/2025 11:09 AM CDT) Only the most recent of90 resultswithin the time period is included. GLUCOSE POC 238(H) 70 - 99 mg/dL 03/24/2025 11:27 AM CDT [facility] 03/24/2025 11:0 9 AM CDT Gina Mcgregor PA-C POCT ORDERABLES - DEVICE Jeanie gutierrez Result [facility] [address] [place] [address], [place] [phone] * (ABNORMAL) BASIC METABOLIC PANEL (03/24/2025 8:59 AM CDT) Only the most recent of24 resultswithin the time period is included. GLUCOSE 236(H) 70 - 99 MG/DL 03/24/2025 10:09 AM CDT [facility] BUN 32(H) 7 - 18 MG/DL 03/24/2025 10:09 AM CDT [facility] CREATININE S/P/B 1.65(H) 0.7 - 1.3 MG/DL 03/24/2025 10:09 AM CDT [facility] SODIUM S/P/B 136 136 - 145 MMOL/L 03/24/2025 10:09 AM CDT [facility] POTASSIUM S/P/B 4.1 3.5 - 5.1 MMOL/L 03/24/2025 10:09 AM CDT [facility] CHLORIDE S/P/B 98 97 - 115 MMOL/L 03/24/2025 10:09 AM CDT [facility] CO2 34.6(H) 21 - 32 MMOL/L 03/24/2025 10:09 AM CDT [facility] CALCIUM S/P/B 10.1 8.5 - 10.1 MG/DL 03/24/2025 10:09 AM CDT [facility] ANION GAP 3.4 2 - 10 MMOL/L 03/24/2025 10:09 AM CDT [facility] BUN CREATININE RATIO 19.4 6 - 26 03/24/2025 10:09 AM CDT [facility] GFR ESTIMATE 46(L) >90 ML/MIN/1.7 3 M2 03/24/2025 10:09 AM CDT [facility] Comment: NOTE: eGFR is not calculated for patients <18 years of age or gender unknown. This is an estimated GFR calculation using the new CKD EPI creatinine equation without race and so does not require a correction factor for race. This estimated GFR should not be used for calculating drug doses. 03/24/2025 8:59 AM CDT us Shaye Pelaez DO LABORATORY Final Res ult [facility] [address] [place] [address], [place] [phone] * (ABNORMAL) CBC, AUTO, NO DIFF (03/24/2025 8:59 AM CDT) Only the most recent of8 resultswithin the time period is included. WBC 4.99 4.5 - 11.0 x10'3/uL 03/24/2025 9:11 AM CDT [facility] RBC 3.99(L) 4.70 - 6.10 x10'6/uL 03/24/2025 9:11 AM CDT [facility] HGB 10.8(L) 14.0 - 18.0 G/DL 03/24/2025 9:11 AM CDT [facility] HCT 35.4(L) 43.0 - 54.0 % 03/24/2025 9:11 AM CDT [facility] MCV 88.7 80.0 - 94.0 FL 03/24/2025 9:11 AM CDT [facility] MCH 27.1 27.0 - 31.0 PG 03/24/2025 9:11 AM CDT [facility] MCHC 30.5(L) 32.0 - 36.0 G/DL 03/24/2025 9:11 AM CDT [facility] RDW 16.9(H) 11.5 - 14.5 % 03/24/2025 9:11 AM CDT [facility] PLT 195 130 - 400 x10'3/uL 03/24/2025 9:11 AM CDT [facility] MPV 9.5 9.3 - 12.2 FL 03/24/2025 9:11 AM CDT [facility] 03/24/2025 8:59 AM CDT us Shaye Pelaez DO LABORATORY Final Res ult [facility] [address] [place] [address], * MAGNESIUM (03/24/2025 8:59 AM CDT) Only the most recent of12 resultswithin the time period is included. MAGNESIUM 2.1 1.8 - 2.4 MG/DL 03/24/2025 10:09 AM CDT [facility] 03/24/2025 8:59 AM CDT Evan Floyd MD LABORATORY Final Result [facility] [address] [place] [address], * (ABNORMAL) PRO-BRAIN NATRIURETIC PEPTIDE (03/21/2025 6:49 AM CDT) Only the most recent of3 resultswithin the time period is included. PRO-B TYPE NATRIURETIC PEPTIDE 955(H) <125 PG/ML 03/21/2025 8:39 AM CDT [facility] Comment: CUT POINTS ESTABLISHED BY [employer] ON NT PROBNP (ICON) STUDY (2006). AGE INDEPENDENT: <300 PG/ML HAS A 99% NEGATIVE PREDICTIVE VALUE FOR EXCLUDING ACUTE CHF <50 YEARS: >450 PG/ML IS CONSISTENT WITH ACUTE CHF 50-75 YEARS: >900 PG/ML IS CONSISTENT WITH ACUTE CHF >75 YEARS: >1800 PG/ML IS CONSISTENT WITH ACUTE CHF IN PATIENTS WITH RENAL INSUFFICIENCY (GFR <60), >1200 PG/ML YIELDS A DIAGNOSTIC SENSITIVITY AND SPECIFICITY OF 89% AND 72% FOR ACUTE CHF. 03/21/2025 6:49 AM CDT Inessa Arriola MD LABORATORY Final Result [facility] [address] [place] [address], * XR CHEST PA+LAT (03/20/2025 11:26 AM CDT) Anatomical Region Laterality Modality Chest Radiographic [place] ging 03/20/2025 11:2 8 AM CDT Impressions 03/20/2025 11:33 AM CDT IMPRESSION: At least moderate pulmonary vascular congestion and pulmonary edema but slightly decreased compared to 03/15/2025. Ordered By: INESSA ARRIOLA Interpreted By: Erick Mackay, 03/20/2025 11:28 AM Narrative 03/20/2025 11:33 AM CDT [address] [address] IMAGING STUDIES: XR CHEST PA+LAT DATE: 03/20/2025 11:09 AM HISTORY: follow up of CHF 64-year-old male. Telemetry patient. Congestive heart failure. Follow-up. COMPARISON: Chest portable 03/15/2025 and 02/02/2025. DISCUSSION: Upright AP and lateral views on 3 images. Large body habitus. Lordotic positioning. Heart size remains towards upper limits normal. At least moderate pulmonary vascular congestion and pulmonary edema remaining most prominent in the mid to lower lungs but slightly decreased compared to 03/15/2025. No new focal lung consolidation. No appreciable pleural effusion or pneumothorax. Degenerative changes of the spine and of the visualized right shoulder. Procedure Note Erick Mackay MD - 03/20/[address] [address] IMAGING STUDIES: XR CHEST PA+LATDATE: 03/20/2025 11:09 AM HISTORY: follow up of CHF 64-year-old male. Telemetry patient.Congestive heart failure. Follow-up. COMPARISON: Chest portable 03/15/2025 and 02/02/2025. DISCUSSION: Upright AP and lateral views on 3 images. Large body habitus. Lordotic positioning. Heart size remains towards upper limits normal. At least moderatepulmonary vascular congestion and pulmonary edema remaining most prominentin the mid to lower lungs but slightly decreased compared to 03/15/2025. No new focal lung consolidation. No appreciable pleural effusion orpneumothorax. Degenerative changes of the spine and of the visualized right shoulder. IMPRESSION: At least moderate pulmonary vascular congestion and pulmonary edema butslightly decreased compared to 03/15/2025. Ordered By: INESSA ARRIOLA Interpreted By: Erick Mackay, 03/20/2025 11:28 AM us Inessa Arriola MD GENERAL IMAGING Final Result * URINALYSIS (03/16/2025 8:27 PM CDT) Only the most recent of2 resultswithin the time period is included. SPECIMEN TYPE URINE CLEAN CATCH 03/16/2025 8:27 PM CDT [facility] COLOR (U) COLORLESS 03/16/2025 9:09 PM CDT [facility] TRANSPARENCY CLEAR 03/16/2025 9:09 PM CDT [facility] SPECIFIC GRAVITY (U) 1.010 1.001 - 1.030 03/16/2025 9:09 PM CDT [facility] U PH 5.0 5.0 - 9.0 03/16/2025 9:09 PM CDT [facility] LEUKOCYTES (U) NEGATIVE NEGATIVE 03/16/2025 9:09 PM CDT [facility] NITRITES NEGATIVE NEGATIVE 03/16/2025 9:09 PM CDT [facility] PROTEIN RANDOM (U) 10 <30 MG/DL 03/16/2025 9:09 PM CDT [facility] GLUCOSE (U) NORMAL NORMAL MG/DL 03/16/2025 9:09 PM CDT [facility] KETONES MG/DL (U) NEGATIVE NEGATIVE MG/DL 03/16/2025 9:09 PM CDT [facility] UROBILINOGEN NORMAL NORMAL MG/DL 03/16/2025 9:09 PM CDT [facility] BILIRUBIN (U) NEGATIVE NEGATIVE MG/DL 03/16/2025 9:09 PM CDT [facility] BLOOD (U) NEGATIVE NEGATIVE 03/16/2025 9:09 PM CDT [facility] URINE SPECIMEN OBTAINED BY CLEAN CATCH PROCEDURE / Unknown 03/16/2025 8:27 PM CDT Ramin Oliver MD URINE ORDERABLES Final Result [facility] [address] [place] [address], [place] [phone] * (ABNORMAL) CBC W/DIFF AUTOMATED (03/16/2025 5:42 AM CDT) Only the most recent of16 resultswithin the time period is included. WBC 5.04 4.5 - 11.0 x10'3/uL 03/16/2025 6:11 AM CDT [facility] RBC 3.36(L) 4.70 - 6.10 x10'6/uL 03/16/2025 6:11 AM CDT [facility] HGB 9.2(L) 14.0 - 18.0 G/DL 03/16/2025 6:11 AM CDT [facility] HCT 30.4(L) 43.0 - 54.0 % 03/16/2025 6:11 AM CDT [facility] MCV 90.5 80.0 - 94.0 FL 03/16/2025 6:11 AM CDT [facility] MCH 27.4 27.0 - 31.0 PG 03/16/2025 6:11 AM CDT [facility] MCHC 30.3(L) 32.0 - 36.0 G/DL 03/16/2025 6:11 AM CDT [facility] RDW 18.9(H) 11.5 - 14.5 % 03/16/2025 6:11 AM CDT [facility] PLT 229 130 - 400 x10'3/uL 03/16/2025 6:11 AM CDT [facility] MPV 9.8 9.3 - 12.2 FL 03/16/2025 6:11 AM CDT [facility] DIFFERENTIAL TYPE AUTOMATED DIFFERENTIAL 03/16/2025 6:11 AM CDT [facility] NEUTROPHILS % 73.8 % 03/16/2025 6:11 AM CDT [facility] LYMPHOCYTES % 15.5 % 03/16/2025 6:11 AM CDT [facility] MONOCYTES % 7.1 % 03/16/2025 6:11 AM CDT [facility] EOSINOPHILS 3.0 % 03/16/2025 6:11 AM CDT [facility] BASOPHILS 0.2 % 03/16/2025 6:11 AM CDT [facility] IMMATURE GRANS % 0.4 % 03/16/20 6:11 AM CDT [facility] ABS. NEUTROPHILS 3.72 1.80 - 7.70 x10'3/uL 03/16/2025 6:11 AM CDT [facility] ABS. LYMPHOCYTES 0.78(L) 1.00 - 4.80 x10'3/uL 03/16/2025 6:11 AM CDT [facility] ABS. MONOCYTES 0.36 0.30 - 0.82 x10'3/uL 03/16/2025 6:11 AM CDT [facility] ABS. EOSINOPHILS 0.15 0.04 - 0.54 x10'3/uL 03/16/2025 6:11 AM CDT [facility] ABS. BASOPHILS 0.01 0.01 - 0.08 x10'3/uL 03/16/2025 6:11 AM CDT [facility] ABS. IMMATURE GRANULOCYTES 0.02 0.00 - 0.49 x10'3/uL 03/16/2025 6:11 AM CDT [facility] 03/16/2025 5:42 AM CDT Jaye Santacruz MD LABORATORY Final Result Performing Organization Address City/[facility]/ZIP Co de Phone Number [facility] [address] [place] [address], [place] [phone] * PROCALCITONIN (PCT) (03/16/2025 5:39 AM CDT) Only the most recent of2 resultswithin the time period is included. PROCALCITONIN <0.05 0.00 - 0.49 NG/ML 03/16/2025 1:39 PM CDT [facility] 03/16/2025 5:39 AM CDT Bon Lazaro MD LABORATORY Final R esult Performing Organization Address City/[facility]/ZIP Co de Phone Number [facility] [address] [place] [address], [place] [phone] * (ABNORMAL) ARTERIAL BLOOD GAS (03/15/2025 4:20 PM CDT) Only the most recent of2 resultswithin the time period is included. PH ARTERIAL 7.39 7.35 - 7.45 03/15/2025 4:55 PM CDT [facility] PCO2 51.0(H) 35.0 - 45.0 MMHG 03/15/2025 4:55 PM CDT [facility] PO2 88.0 83.0 - 108.0 MMHG 03/15/2025 4:55 PM CDT [facility] TOTAL CO2 ARTERIAL 32.5(H) 19.0 - 24.0 MMOL/L 03/15/2025 4:55 PM CDT [facility] BASE EXCESS 4.7(H) 0.0 - 3.0 MMOL/L 03/15/2025 4:55 PM CDT [facility] O2 SATURATION 97 94.0 - 98.0 % 03/15/2025 4:55 PM CDT [facility] BICARB ARTERIAL 30.9(H) 21.0 - 28.0 MMOL/L 03/15/2025 4:55 PM CDT [facility] EARLE TEST EARLE TEST PERFORMED 03/15/2025 4:54 PM CDT [facility] O2 ADMIN ARTERIAL 52% 03/15/2025 4:54 PM CDT [facility] DRAW SITE ARTERIAL LEFT BRACHIAL 03/15/2025 4:54 PM CDT [facility] 03/15/2025 4:20 PM CDT us Jaye Santacruz MD LABORATORY Final Result [facility] [address] [place] [address], * LACTIC ACID W REFLEX (SEPSIS) (03/15/2025 1:12 PM CDT) Only the most recent of4 resultswithin the time period is included. LACTIC ACID VENOUS 1.8 0.4 - 2.0 MMOL/L 03/15/2025 2:04 PM CDT [facility] 03/15/2025 1:12 PM CDT [facility] Final Result Performing Organization Address [facility] Co de Phone Number [facility] [address] [place] [address], * CULTURE, BACTERIA, BLOOD (03/15/2025 1:12 PM CDT) Only the most recent of2 resultswithin the time period is included. Pathologist [facility] SPEC DESCRIPTION BLOOD 03/15/2025 12:38 PM CDT [facility] SPECIAL REQUESTS NO SPECIAL REQUEST 03/15/2025 12:38 PM CDT [facility] CULTURE RESULT NO GROWTH 5 DAYS 03/20/2025 1:46 PM CDT [facility] BLOOD SPECIMEN OBTAINED FOR BLOOD CULTURE / Unknown 03/15/2025 1:12 PM CDT 03/15/2025 1:25 PM CDT Ramin Oliver MD MICROBIOLOGY - GENERAL ORDERABL ES Final Result Performing Organization Address [facility] Co de Phone Number [facility] [address] [place] [address], [place] [phone] * XR CHEST PORTABLE (03/15/2025 12:21 PM CDT) Only the most recent of5 resultswithin the time period is included. Anatomical Region Laterality Modality Chest Radiographic [place] ging 03/15/2025 12:2 9 PM CDT Impressions 03/15/2025 12:34 PM CDT ======== IMPRESSION: Diffuse pulmonary densities may be secondary to edema or infection or other etiology. Ordered By: RAMIN OLIVER Interpreted By: Quincy Garcia MD, 03/15/2025 12:29 PM Narrative 03/15/2025 12:34 PM [address] [address] Examination: Chest Radiograph, 1 view Exam Date/Time: 03/15/2025 11:56 AM Reason For Exam: SOB Comparison: 02/02/2025 Technique: Single AP view of the chest. Findings: Diffuse pulmonary densities seen. There may be slight basilar and central predominance.. No large pleural effusions or pneumothorax is seen. Procedure Note Quincy Garcia MD - 03/15/[address] [address] Examination: Chest Radiograph, 1 view Exam Date/Time: 03/15/2025 11:56 AM Reason For Exam: SOB Comparison: 02/02/2025 Technique: Single AP view of the chest. Findings: Diffuse pulmonary densities seen. There may be slight basilarand central predominance.. No large pleural effusions or pneumothorax isseen. ======== IMPRESSION: Diffuse pulmonary densities may be secondary to edema or infection orother etiology. Ordered By: RAMIN OLIVER Interpreted By: Quincy Garcia MD, 03/15/2025 12:29 PM us Ramin Oliver MD GENERAL IMAGING Final Result * ECG 12 lead (03/15/2025 12:00 PM CDT) Only the most recent of2 resultswithin the time period is included. 03/15/2025 12:0 0 PM CDT Narrative [facility] ([facility] RAD - 03/15/2025 8:[address] 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 : 1960 Requested By: RAMIN OLIVER Order Number: [id number] Reading MD: Mars Reed Measurements Intervals [place] Rate: 73 P: 63 [place]: 149 QRS: 44 QRSD: 92 T: 46 QT: 358 QTc: 395 Interpretive Statements SINUS RHYTHM WITH SINUS ARRHYTHMIA Compared to ECG 01/22/2025 14:00:04 No significant changes us Ramin Oliver MD ECG ORDERABLES Final Result [facility] * PARTIAL THROMBOPLASTIN TIME,PTT (03/15/2025 11:59 AM CDT) PTT 30.9 25.1 - 36.5 SEC 03/15/2025 2:19 PM CDT [facility] 03/15/2025 11:5 9 AM CDT [facility] Final Result Performing Organization Address City/[facility] Co de Phone Number [facility] [address] [place] [address], [place] [phone] * (ABNORMAL) PROTIME/INR, VENOUS (03/15/2025 11:59 AM CDT) Pathologist [facility] PROTIME 14.2(H) 10.2 - 12.9 SEC 03/15/2025 2:19 PM CDT [facility] INR 1.2 03/15/2025 2:19 PM CDT [facility] Comment: Recommended INR Therapeutic Goals: 2.0-3.0 Routine Therapy 2.5-3.5 Mechanical Prosthetic Valves (High Risk) 03/15/2025 11:5 9 AM CDT Ramin Oliver MD LABORATORY Final Result Performing Organization Address City/[facility] Co de Phone Number [facility] [address] [place] [address], [place] [phone] * TROPONIN, QUANT (03/15/2025 11:59 AM CDT) Only the most recent of2 resultswithin the time period is included. TROPONIN I HIGH SENSITIVITY 12 <79 ng/L 03/15/2025 12:44 PM CDT [facility] Comment: HIGH DOSES OF BIOTIN, TROPONIN-SPECIFIC AUTOANTIBODIES, AND ANTIBODY THERAPY CONTAINING HAMA MAY INTERFERE WITH THIS TEST RESULT. CORRELATION TO CLINICAL HISTORY AND PRESENTATION RECOMMENDED. 03/15/2025 11:5 9 AM CDT Ramin Oliver MD LABORATORY Final Result [facility] [address] [place] [address], * (ABNORMAL) URINE BACTERIA CULTURE (02/01/2025 9:23 AM CDT) SPEC DESCRIPTION URINE CLEAN CATCH 02/01/2025 9:30 AM CDT [facility] SPECIAL REQUESTS NO SPECIAL REQUEST 02/01/2025 9:30 AM CDT [facility] CULTURE RESULT 50,000-100,000 COL/ML SERRATIA MARCESCENS NOTE: ORGANISM MAY DEVELOP RESISTANCE AFTER 3 TO 4 DAYS OF THERAPY WITH THIRD GENERATION CEPHALOSPORINS. TESTING OF REPEAT ISOLATES MAY BE WARRANTED. (A) 02/06/2025 7:05 AM CDT [facility] CULTURE RESULT 10,000-49,000 COL/ML ENTEROCOCCUS SPECIES (A) 02/06/2025 7:05 AM CDT [facility] CULTURE RESULT 10,000-49,000 COL/ML STAPHYLOCOCCUS AUREUS (A) 02/06/2025 7:05 AM CDT [facility] CULTURE RESULT 10,000-49,000 COL/ML RAOULTELLA ORNITHINOLYTICA (A) 02/06/2025 7:05 AM CDT [facility] URINE SPECIMEN OBTAINED BY CLEAN CATCH PROCEDURE / Unknown 02/01/2025 9:23 AM CDT 02/01/2025 9:33 AM CDT Narrative Organism Antibiotic Method Susceptibility Serratia marcescens CEFTRIAXONE CARMELO (VITEK) <=1: Sensitive Serratia marcescens CEFTAZIDIME CARMELO (VITEK) <=1: Sensitive Serratia marcescens CEFAZOLIN CARMELO (VITEK) >=64: Resistant Serratia marcescens NITROFURANTOIN CARMELO (VITEK) 256: Resistant Serratia marcescens GENTAMICIN CARMELO (VITEK) <=1: Sensitive Serratia marcescens LEVOFLOXACIN CARMELO (VITEK) <=0.12: Sensitive Serratia marcescens TRIMETH-SULFAMETH. CARMELO (VITEK) <=20: Sensitive Serratia marcescens PIPERACILLIN/TAZOBACTAM CARMELO (VITEK ) Sensitive Enterococcus species AMPICILLIN CARMELO (VITEK) <=2: Sensitive Enterococcus species NITROFURANTOIN CARMELO (VITEK) <=16: Sensitive Enterococcus species GENT. SYNERGY SCREEN CARMELO (VITEK) Resistant Enterococcus species PENICILLIN G CARMELO (VITEK) 4: Sensitive Staphylococcus aureus NITROFURANTOIN CARMELO (VITEK) <=16: Sensitive Staphylococcus aureus OXACILLIN CARMELO (VITEK) 0.5: Sensitive Staphylococcus aureus PENICILLIN G CARMELO (VITEK) >=0.5: Resistant Staphylococcus aureus TRIMETH-SULFAMETH. CARMELO (VITEK) <=10: Sensitive Staphylococcus aureus TETRACYCLINE CARMELO (VITEK) <=1: Sensitive Raoultella ornithinolytica AMPICILLIN CARMELO (VITEK) 4: Sensitive Raoultella ornithinolytica AMPICILLIN/SULBACTAM CARMELO (V ITEK) 4: Sensitive Raoultella ornithinolytica CEFTRIAXONE CARMELO (VITEK) <=1: Sensitive Raoultella ornithinolytica CEFTAZIDIME CARMELO (VITEK) <=1: Sensitive Raoultella ornithinolytica CEFAZOLIN CARMELO (VITEK) >=64: Resistant Raoultella ornithinolytica NITROFURANTOIN CARMELO (VITEK) 128: Resistant Raoultella ornithinolytica GENTAMICIN CARMELO (VITEK) <=1: Sensitive Raoultella ornithinolytica PIPERACILLIN/TAZOBACTAM CARMELO (VITEK) <=4: Sensitive Raoultella ornithinolytica TRIMETH-SULFAMETH. CARMELO (VIT EK) <=20: Sensitive us Claudio Mckeon MD MICROBIOLOGY - GENERAL ORDERABLE S Final Result [facility] [address] [place] [address], [place] [phone] * USE ECHOCARDIOGRAM W CON (01/23/2025 9:47 AM CDT) Anatomical Region Laterality Modality NA Echocardiogram 01/23/2025 8:21 AM CDT Narrative 01/23/2025 6:32 PM CDT Echocardiography Report Pat.Name: MARIO ENRIQUEZ.ID: [id number] .Date: 01/23/2025 Exam Time: 8:21:00 AM Study Type:ECHO WITH CARDIAC DOPPLER COMP Height: 72 in Weight: 365 lb BSA: 2.75 m2 Age: 2 1960,64Y Sex: M BP: 149/75 HR: 87 bpm Sonogrphr: Gadiel Rankin RDCS Pat. Stat.:Inpatient Room: 464 Reason for Study:CHF History / Clinical:increasing BLE edema/redness/weeping; pateint was off lasiks; ddimer 1204; no hx DVT ; PMH- BMI 57, xtob, JOANA, HLD, GERD, prior 05/09/23 BLEV neg, LLE limted due to leg wrap Procedures: 2D, M-mode, Doppler, Color Flow, Definity was used to enhance endocardial definition. The study quality is technically difficult. Race: W ++++++++++++++++++++++++++++++++++++ SUMMARY: ++++++++++++++++++++++++++++++++++++ The left ventricular systolic function is normal. Estimated left ventricular ejection fraction is 65-70%. Mild concentric left ventricular hypertrophy. Wall motion appears normal in all segments. Left ventricular diastolic function is abnormal (grade 3 - restrictive filling). Mild aortic valve stenosis. The peak velocity across the aortic valve measures 2.8 m/sec with a peak gradient of 31.4 mmHg and a mean gradient of 11.3mmHg. The calculated aortic valve area is 1.9 cm2. Dimensionless index of 21/39=0.54. Mild mitral and tricuspid regurgitation. Compared to the previous study the ejection fraction has remained preserved. ++++++++++++++++++++++++++++++++++++ FINDINGS: ++++++++++++++++++++++++++++++++++++ LV: The left ventricular size is normal. The left ventricular systolic function is normal. Estimated left ventricular ejection fraction is 65-70%. Mild concentric left ventricular hypertrophy. Left ventricular diastolic function is abnormal (grade 3 - restrictive filling). The mean left atrial pressure is elevated. WM: Wall motion appears normal in all segments. RV: The right ventricular size is mild to moderately enlarged. Right ventricular systolic function is normal. IVS: No evidence of ventricular septal defect. LA: The left atrial size is normal. The left atrial volume is normal ( less than 34 ml/M2). RA: Right atrial size is mild to moderately enlarged. IAS: Atrial septum appears intact. SHAVON: No evidence of pericardial effusion. AO: The aortic root measures 3.8-4.16 cm. The aorta is atherosclerotic. PA: Estimated right atrial pressure of 15 mmHg. SVn: Inferior vena cava is moderately enlarged. Inferior vena cava shows <50% collapse with respiration consistent with elevated right atrial pressure. Other: Compared to the previous study the ejection fraction has remained preserved. AV: The aortic valve is trileaflet. Mild aortic valve stenosis. The peak velocity across the aortic valve measures 2.8 m/sec with a peak gradient of 31.4 mmHg and a mean gradient of 11.3mmHg. The calculated aortic valve area is 1.9 cm2. No evidence of aortic regurgitation. Dimensionless index of 21/39=0.54. MV: Structurally normal mitral valve. Mild mitral regurgitation. No evidence of mitral valve stenosis. PV: Trace pulmonic regurgitation. No evidence of pulmonic valve stenosis. TV: Mild tricuspid regurgitation. Right ventricular systolic pressure is 45 to 55 mmHg suggestive of moderate pulmonary hypertension. No evidence of tricuspid valve stenosis. ++++++++++++++++++++++++++++++++++++ MEASUREMENTS: ++++++++++++++++++++++++++++++++++++ DOPPLER LVOT LVOTpkPG 1.17 mmHg LVOTmnPG 2.17 mmHg LVOTpkVel 54 cm/s (70-110)+* LVOT CO 5.8 l/min LVOT TVI 21.1 cm MV Forward Flow MV DeTm 244 msec MV E/A 2.18 MVA P1/2t 3.1 cm2 (4-6)* MV pkE 145 cm/s (60-130)* MV P1/2t 71 msec (30-60)* MV pkA 66.5 cm/s TV Regurg Flow TV pkPG 34.8 mmHg TV pkVel 295 cm/s (30-70)+* TV Forward Flow TV pkE 66.5 cm/s Lat E' Lat e 18.6 cm/s Lat E/E' Lat E/e 7.82 Med E' Med e 17.1 cm/s Med E/E' Med E/e 8.49 Left Ventricle Left Ventricula 166 mmHg Composite heart 79 bpm Mitral Valve Decel Power 594 cm/s2 Mitral Valve A 0.458 HR 81 bpm Pulmonic Valve AC 91.2 millisecond Peak Velocity 114 cm/s PG pk 5.19 mmHg Tricuspid Valve HR 78 bpm TV Free Wall Sa 21.5 cm/s 2D Left Ventricle LV CI 3.67 l/m/m2 LV vol d MOD A4 4.32 cm LVIDd 5.73 cm (4.3-5.1)* LV vol d MOD A4 4.81 cm LVIDs 3.18 cm (2-4)+ LV vol d MOD A4 4.93 cm LV%fs 44.5 % (25-46) LV vol d MOD A4 4.84 cm LV CI 2.98 l/m/m2 LV vol d MOD A4 4.78 cm LV CI 3.53 l/m/m2 LV vol d MOD A4 4.72 cm LV CO 8.21 l/min LV vol d MOD A4 4.57 cm LV CO 9.72 l/min LV vol d MOD A4 4.26 cm LV CO BP 8.98 l/min LV vol d MOD A4 3.89 cm LV SV 97.7 ml LV vol d MOD A4 3.49 cm LV SV 116 ml LV vol d MOD A4 2.78 cm LV SV BP 107 ml LV vol d MOD A4 1.73 cm Left Ventricle 9.88 cm LV vol d MOD A4 4.97 cm Left Ventricle 10.1 cm LV vol d MOD A4 4.94 cm LV Semi-major A 7.28 cm LV vol d MOD A4 4.97 cm Left Ventricle 8.28 cm LV vol d MOD A4 5.09 cm Left Ventricle 7.98 cm LV vol d MOD A4 5.06 cm Left Ventricle 8.28 cm LV vol d MOD A4 5 cm LV Trunc Semi-m 2.81 cm LV vol d MOD A4 5 cm LV Area iverson 42.6 cm2 LV vol d MOD A4 4.97 cm LV Area iverson 45 cm2 LV vol s MOD A2 2.97 cm LVA% 47.7 % LV vol s MOD A2 3.13 cm LVA% 52.3 % LV vol s MOD A2 2.91 cm LV Area sys 22.3 cm2 LV vol s MOD A2 2.97 cm LV Area sys 21.5 cm2 LV vol s MOD A2 3 cm LV EF 66.1 % LV vol s MOD A2 2.97 cm LV EF 70.9 % LV vol s MOD A2 2.72 cm LV EF BP 68.4 % LV vol s MOD A2 2.44 cm LV EDV 148 ml LV vol s MOD A2 2.09 cm LV EDV 163 ml LV vol s MOD A2 1.84 cm LVEDV BP 56.8 ml LV vol s MOD A2 1.5 cm LV ESV 50 ml LV vol s MOD A2 0.784 cm LV ESV 47.4 ml LV vol s MOD A2 3.22 cm LVESV BP 18 ml LV vol s MOD A2 3.16 cm LV Mass 1.44 g/cm LV vol s MOD A2 3.19 cm Composite heart 84 bpm LV vol s MOD A2 3.06 cm Composite heart 84 bpm LV vol s MOD A2 3.07 cm Composite heart 83 bpm LV vol s MOD A2 3.03 cm Composite heart 84 bpm LV vol s MOD A2 2.97 cm Composite heart 83 bpm LV vol s MOD A2 2.96 cm LV vol d MOD A2 2.99 cm LV vol s MOD A4 2.96 cm LV vol d MOD A2 4.06 cm LV vol s MOD A4 3.42 cm LV vol d MOD A2 4.9 cm LV vol s MOD A4 2.59 cm LV vol d MOD A2 4.77 cm LV vol s MOD A4 2.59 cm LV vol d MOD A2 4.68 cm LV vol s MOD A4 2.59 cm LV vol d MOD A2 4.59 cm LV vol s MOD A4 2.59 cm LV vol d MOD A2 4.46 cm LV vol s MOD A4 2.52 cm LV vol d MOD A2 4.34 cm LV vol s MOD A4 2.46 cm LV vol d MOD A2 3.97 cm LV vol s MOD A4 2.25 cm LV vol d MOD A2 3.51 cm LV vol s MOD A4 2 cm LV vol d MOD A2 2.71 cm LV vol s MOD A4 1.66 cm LV vol d MOD A2 1.69 cm LV vol s MOD A4 0.862 cm LV vol d MOD A2 4.4 cm LV vol s MOD A4 3.51 cm LV vol d MOD A2 4.68 cm LV vol s MOD A4 3.42 cm LV vol d MOD A2 4.8 cm LV vol s MOD A4 3.33 cm LV vol d MOD A2 4.99 cm LV vol s MOD A4 3.26 cm LV vol d MOD A2 5.05 cm LV vol s MOD A4 3.08 cm LV vol d MOD A2 4.99 cm LV vol s MOD A4 2.99 cm LV vol d MOD A2 4.93 cm LV vol s MOD A4 2.8 cm LV vol d MOD A2 4.96 cm LV vol s MOD A4 2.68 cm LVPW LVPWd 1.05 cm Left Atrium LA VOLBP 87.6 ml Major [place] (Sys 5.57 cm Pelaez Disk Nu 9 Major [place] (Sys 6.63 cm Ratios IVS Ventricular Septum IVSd 1.18 cm Aorta AO Ds 3.82 cm LV Area-Length Biplane LVEDV 162 ml LVESV 49.2 ml LV Area-Length Single Plane LVEDV 156 ml LVESV 51.1 ml LVEDV 171 ml LVESV 49.2 ml LVOT LVOTArea 3.47 cm2 Cardiovascular 2.1 cm Right Atrium Major [place] (Sys 5.91 cm Pelaez Disk Nu 9 HR 81 bpm RA Area-Length Single Plane Volume (Systole 21.9 ml/m2 RA Single Plane RA sys Area 20.5 cm2 Volume (Systole 56.3 ml Right Ventricle RVIDd 4.57 cm HR 84 bpm Major [place] (Hilda 9.22 cm Minor [place] (Hilda 4.34 cm TA Cardiovascular 4.31 cm MMODE Aorta Ao Rt 4.16 cm (2-3.7)* Aortic Valve AV sep 1.39 cm (1.5-2.6)* PG pk 17.4 mmHg AC 1123 millisecond Peak Velocity 209 cm/s HR 85 bpm VTI 0.385 m PG mean 11.3 mmHg AV ET 249 millisecond Mean Velocity 155 cm/s AV AC/ET 4.52 AV Continuity Equation by Mean Velocity Orf Area 1.53 cm2 AV Continuity Equation by Peak Velocity Orf Area 0.327 square centimeters per square meter Area 0.899 cm2 AV Continuity Equation by Velocity Time Integral Orf Area 0.69 square centimeters per square meter Area 1.9 cm2 Left Ventricle Heart Rate-Norm 384 millisecond Composite HR fo 85 bpm Composite heart 85 bpm Tricuspid Valve Tricuspid annul 2.3 cm <Electronic Signature> 01/23/2025 06:32 PM Inessa Arriola M.D. Procedure Note Inessa Arriola MD - 01/24/2025 Echocardiography Report Pat.Name: MARIO ENRIQUEZ.ID: [id number] .Date: 01/23/2025 Exam Time: 8:21:00 AM Study Type:ECHO WITH CARDIAC DOPPLER COMP Height: 72 in Weight: 365 lb BSA: 2.75 m2 Age: 2 1960,64Y Sex: M BP: 149/75 HR: 87 bpm Sonogrphr: Gadiel Rankin LISA Pat. Stat.:Inpatient Room: 464 Reason for Study:CHF History / Clinical:increasing BLE edema/redness/weeping; pateint was off lasiks; ddimer 1204; no hx DVT ; PMH- BMI 57, xtob, JOANA, HLD, GERD, prior 05/09/23 BLEV neg, LLE limted due to leg wrap Procedures: 2D, M-mode, Doppler, Color Flow, Definity was used to enhance endocardial definition. The study quality is technically difficult. Race: W ++++++++++++++++++++++++++++++++++++ SUMMARY: ++++++++++++++++++++++++++++++++++++ The left ventricular systolic function is normal. Estimated left ventricular ejection fraction is 65-70%. Mild concentric left ventricular hypertrophy. Wall motion appears normal in all segments. Left ventricular diastolic function is abnormal (grade 3 - restrictive filling). Mild aortic valve stenosis. The peak velocity across the aortic valve measures 2.8 m/sec with a peak gradient of 31.4 mmHg and a mean gradient of 11.3mmHg. The calculated aortic valve area is 1.9 cm2. Dimensionless index of 21/39=0.54. Mild mitral and tricuspid regurgitation. Compared to the previous study the ejection fraction has remained preserved. ++++++++++++++++++++++++++++++++++++ FINDINGS: ++++++++++++++++++++++++++++++++++++ LV: The left ventricular size is normal. The left ventricular systolic function is normal. Estimated left ventricular ejection fraction is 65-70%. Mild concentric left ventricular hypertrophy. Left ventricular diastolic function is abnormal (grade 3 - restrictive filling). The mean left atrial pressure is elevated. WM: Wall motion appears normal in all segments. RV: The right ventricular size is mild to moderately enlarged. Right ventricular systolic function is normal. IVS: No evidence of ventricular septal defect. LA: The left atrial size is normal. The left atrial volume is normal ( less than 34 ml/M2). RA: Right atrial size is mild to moderately enlarged. IAS: Atrial septum appears intact. SHAVON: No evidence of pericardial effusion. AO: The aortic root measures 3.8-4.16 cm. The aorta is atherosclerotic. PA: Estimated right atrial pressure of 15 mmHg. SVn: Inferior vena cava is moderately enlarged. Inferior vena cava shows <50% collapse with respiration consistent with elevated right atrial pressure. Other: Compared to the previous study the ejection fraction has remained preserved. AV: The aortic valve is trileaflet. Mild aortic valve stenosis. The peak velocity across the aortic valve measures 2.8 m/sec with a peak gradient of 31.4 mmHg and a mean gradient of 11.3mmHg. The calculated aortic valve area is 1.9 cm2. No evidence of aortic regurgitation. Dimensionless index of 21/39=0.54. MV: Structurally normal mitral valve. Mild mitral regurgitation. No evidence of mitral valve stenosis. PV: Trace pulmonic regurgitation. No evidence of pulmonic valve stenosis. TV: Mild tricuspid regurgitation. Right ventricular systolic pressure is 45 to 55 mmHg suggestive of moderate pulmonary hypertension. No evidence of tricuspid valve stenosis. ++++++++++++++++++++++++++++++++++++ MEASUREMENTS: ++++++++++++++++++++++++++++++++++++ DOPPLER LVOT LVOTpkPG 1.17 mmHg LVOTmnPG 2.17 mmHg LVOTpkVel 54 cm/s (70-110)+* LVOT CO 5.8 l/min LVOT TVI 21.1 cm MV Forward Flow MV DeTm 244 msec MV E/A 2.18 MVA P1/2t 3.1 cm2 (4-6)* MV pkE 145 cm/s (60-130)* MV P1/2t 71 msec (30-60)* MV pkA 66.5 cm/s TV Regurg Flow TV pkPG 34.8 mmHg TV pkVel 295 cm/s (30-70)+* TV Forward Flow TV pkE 66.5 cm/s Lat E' Lat e 18.6 cm/s Lat E/E' Lat E/e 7.82 Med E' Med e 17.1 cm/s Med E/E' Med E/e 8.49 Left Ventricle Left Ventricula 166 mmHg Composite heart 79 bpm Mitral Valve Decel Power 594 cm/s2 Mitral Valve A 0.458 HR 81 bpm Pulmonic Valve AC 91.2 millisecond Peak Velocity 114 cm/s PG pk 5.19 mmHg Tricuspid Valve HR 78 bpm TV Free Wall Sa 21.5 cm/s 2D Left Ventricle LV CI 3.67 l/m/m2 LV vol d MOD A4 4.32 cm LVIDd 5.73 cm (4.3-5.1)* LV vol d MOD A4 4.81 cm LVIDs 3.18 cm (2-4)+ LV vol d MOD A4 4.93 cm LV%fs 44.5 % (25-46) LV vol d MOD A4 4.84 cm LV CI 2.98 l/m/m2 LV vol d MOD A4 4.78 cm LV CI 3.53 l/m/m2 LV vol d MOD A4 4.72 cm LV CO 8.21 l/min LV vol d MOD A4 4.57 cm LV CO 9.72 l/min LV vol d MOD A4 4.26 cm LV CO BP 8.98 l/min LV vol d MOD A4 3.89 cm LV SV 97.7 ml LV vol d MOD A4 3.49 cm LV SV 116 ml LV vol d MOD A4 2.78 cm LV SV BP 107 ml LV vol d MOD A4 1.73 cm Left Ventricle 9.88 cm LV vol d MOD A4 4.97 cm Left Ventricle 10.1 cm LV vol d MOD A4 4.94 cm LV Semi-major A 7.28 cm LV vol d MOD A4 4.97 cm Left Ventricle 8.28 cm LV vol d MOD A4 5.09 cm Left Ventricle 7.98 cm LV vol d MOD A4 5.06 cm Left Ventricle 8.28 cm LV vol d MOD A4 5 cm LV Trunc Semi-m 2.81 cm LV vol d MOD A4 5 cm LV Area iverson 42.6 cm2 LV vol d MOD A4 4.97 cm LV Area iverson 45 cm2 LV vol s MOD A2 2.97 cm LVA% 47.7 % LV vol s MOD A2 3.13 cm LVA% 52.3 % LV vol s MOD A2 2.91 cm LV Area sys 22.3 cm2 LV vol s MOD A2 2.97 cm LV Area sys 21.5 cm2 LV vol s MOD A2 3 cm LV EF 66.1 % LV vol s MOD A2 2.97 cm LV EF 70.9 % LV vol s MOD A2 2.72 cm LV EF BP 68.4 % LV vol s MOD A2 2.44 cm LV EDV 148 ml LV vol s MOD A2 2.09 cm LV EDV 163 ml LV vol s MOD A2 1.84 cm LVEDV BP 56.8 ml LV vol s MOD A2 1.5 cm LV ESV 50 ml LV vol s MOD A2 0.784 cm LV ESV 47.4 ml LV vol s MOD A2 3.22 cm LVESV BP 18 ml LV vol s MOD A2 3.16 cm LV Mass 1.44 g/cm LV vol s MOD A2 3.19 cm Composite heart 84 bpm LV vol s MOD A2 3.06 cm Composite heart 84 bpm LV vol s MOD A2 3.07 cm Composite heart 83 bpm LV vol s MOD A2 3.03 cm Composite heart 84 bpm LV vol s MOD A2 2.97 cm Composite heart 83 bpm LV vol s MOD A2 2.96 cm LV vol d MOD A2 2.99 cm LV vol s MOD A4 2.96 cm LV vol d MOD A2 4.06 cm LV vol s MOD A4 3.42 cm LV vol d MOD A2 4.9 cm LV vol s MOD A4 2.59 cm LV vol d MOD A2 4.77 cm LV vol s MOD A4 2.59 cm LV vol d MOD A2 4.68 cm LV vol s MOD A4 2.59 cm LV vol d MOD A2 4.59 cm LV vol s MOD A4 2.59 cm LV vol d MOD A2 4.46 cm LV vol s MOD A4 2.52 cm LV vol d MOD A2 4.34 cm LV vol s MOD A4 2.46 cm LV vol d MOD A2 3.97 cm LV vol s MOD A4 2.25 cm LV vol d MOD A2 3.51 cm LV vol s MOD A4 2 cm LV vol d MOD A2 2.71 cm LV vol s MOD A4 1.66 cm LV vol d MOD A2 1.69 cm LV vol s MOD A4 0.862 cm LV vol d MOD A2 4.4 cm LV vol s MOD A4 3.51 cm LV vol d MOD A2 4.68 cm LV vol s MOD A4 3.42 cm LV vol d MOD A2 4.8 cm LV vol s MOD A4 3.33 cm LV vol d MOD A2 4.99 cm LV vol s MOD A4 3.26 cm LV vol d MOD A2 5.05 cm LV vol s MOD A4 3.08 cm LV vol d MOD A2 4.99 cm LV vol s MOD A4 2.99 cm LV vol d MOD A2 4.93 cm LV vol s MOD A4 2.8 cm LV vol d MOD A2 4.96 cm LV vol s MOD A4 2.68 cm LVPW LVPWd 1.05 cm Left Atrium LA VOLBP 87.6 ml Major [place] (Sys 5.57 cm Pelaez Disk Nu 9 Major [place] (Sys 6.63 cm Ratios IVS Ventricular Septum IVSd 1.18 cm Aorta AO Ds 3.82 cm LV Area-Length Biplane LVEDV 162 ml LVESV 49.2 ml LV Area-Length Single Plane LVEDV 156 ml LVESV 51.1 ml LVEDV 171 ml LVESV 49.2 ml LVOT LVOTArea 3.47 cm2 Cardiovascular 2.1 cm Right Atrium Major [place] (Sys 5.91 cm Pelaez Disk Nu 9 HR 81 bpm RA Area-Length Single Plane Volume (Systole 21.9 ml/m2 RA Single Plane RA sys Area 20.5 cm2 Volume (Systole 56.3 ml Right Ventricle RVIDd 4.57 cm HR 84 bpm Major [place] (Hilda 9.22 cm Minor [place] (Hilda 4.34 cm TA Cardiovascular 4.31 cm MMODE Aorta Ao Rt 4.16 cm (2-3.7)* Aortic Valve AV sep 1.39 cm (1.5-2.6)* PG pk 17.4 mmHg AC 1123 millisecond Peak Velocity 209 cm/s HR 85 bpm VTI 0.385 m PG mean 11.3 mmHg AV ET 249 millisecond Mean Velocity 155 cm/s AV AC/ET 4.52 AV Continuity Equation by Mean Velocity Orf Area 1.53 cm2 AV Continuity Equation by Peak Velocity Orf Area 0.327 square centimeters per square meter Area 0.899 cm2 AV Continuity Equation by Velocity Time Integral Orf Area 0.69 square centimeters per square meter Area 1.9 cm2 Left Ventricle Heart Rate-Norm 384 millisecond Composite HR fo 85 bpm Composite heart 85 bpm Tricuspid Valve Tricuspid annul 2.3 cm <Electronic Signature> 01/23/2025 06:32 PM Inessa Arriola M.D. Isael Naidu PA-C ECHO Final Result * (ABNORMAL) TSH W/REFLEX (01/23/2025 5:31 AM CDT) TSH 13.400(H) 0.358 - 3.74 uIU/ML 01/23/2025 7:59 AM CDT [facility] Comment: HIGH DOSES OF BIOTIN MAY INTERFERE WITH THIS TEST RESULT. CORRELATION TO CLINICAL HISTORY AND PRESENTATION RECOMMENDED. 01/23/2025 5:31 AM CDT Isael Naidu PA-C LABORATORY Final Result [facility] [address] [place] [address], [place] [phone] * (ABNORMAL) HEMOGLOBIN, GLYCATED (01/23/2025 5:31 AM CDT) HGB A1C 9.2(H) <5.7 % 01/23/2025 9:51 AM CDT [facility] Comment: ADA GUIDELINES 2010 5.7 TO 6.4% INCREASED RISK OF DIABETES > OR = 6.5% CONSISTENT WITH DIABETES ESTIMATED AVG GLUCOSE 217 mg/dL 01/23/2025 9:51 AM CDT [facility] 01/23/2025 5:31 AM CDT Isael Naidu PA-C LABORATORY Final Result [facility] [address] [place] [address], * (ABNORMAL) LIPID PANEL (01/23/2025 5:31 AM CDT) CHOLESTEROL 95 <200 MG/DL 01/23/2025 7:59 AM CDT [facility] TRIGLYCERIDES 226(H) <150 MG/DL 01/23/2025 7:59 AM CDT [facility] HDL 25(L) >40.0 MG/DL 01/23/2025 7:59 AM CDT [facility] LDL (CALCULATED) 25 <100 MG/DL 01/23/2025 7:59 AM CDT [facility] Comment:CALCULATED USING THE FRIEDEWALD EQUATION NON HDL CHOLESTEROL 70 <130 MG/DL 01/23/2025 7:59 AM CDT [facility] CHOL/HDL RATIO 3.8 0.0 - 4.5 01/23/2025 7:59 AM CDT [facility] VLDL CALCULATION 45 5 - 55 MG/DL 01/23/2025 7:59 AM CDT [facility] LIPID INTERPRETATION 01/23/2025 7:59 AM CDT [facility] Comment: [facility] CONCENSUS REPORT RECOMMENDATIONS: ADULT CHILD LOW RISK: CHOLESTEROL <200 <170 TRIGLYCERIDE <150 --- HDL >=60 --- LDL <100 <110 BORDERLINE: CHOLESTEROL 200-239 170-199 TRIGLYCERIDE 150-199 --- HDL 40-59 --- LDL 100-159 110-129 HIGH RISK: CHOLESTEROL >=240 >=200 TRIGLYCERIDE >=200 --- HDL <40 --- LDL >=160 >=130 01/23/2025 5:31 AM CDT Isael Naidu PA-C LABORATORY Final Result Performing Organization Address City/[facility] Co de Phone Number [facility] [address] [place] [address], [place] [phone] * THYROXINE, FREE (FT4) (01/23/2025 5:31 AM CDT) FREE T4 0.90 0.76 - 1.46 NG/DL 01/23/2025 8:48 AM CDT [facility] 01/23/2025 5:31 AM CDT Isael Naidu PA-C LABORATORY Final Result Performing Organization Address City/[facility]/ZIP Co de Phone Number [facility] [address] [place] [address], [place] [phone] * FERRITIN (01/23/2025 5:31 AM CDT) FERRITIN 10.7 8.0 - 388.0 NG/ML 01/23/2025 11:14 AM CDT [facility] 01/23/2025 5:31 AM CDT us Inessa Arriola MD LABORATORY Final Result [facility] [address] [place] [address], [place] [phone] * CORONAVIRUS (COVID 19) (01/22/2025 1:54 PM CDT) CORONAVIRUS SARS COV 2 RNA NEGATIVE NEGATIVE 01/22/2025 2:34 PM CDT [facility] Comment: NEGATIVE RESULTS DO NOT RULE OUT COVID 19 AND SHOULD NOT BE USED THE SOLE BASIS FOR TREATMENT OR PATIENT MANAGEMENT DECISIONS, INCLUDING INFECTION CONTROL DECISIONS. NEGATIVE RESULTS SHOULD BE CONSIDERED IN THE CONTEXT OF A PATIENT'S RECENT EXPOSURES, HISTORY AND THE PRESENCE OF CLINICAL SIGNS AND SYMPTOMS CONSISTENT WITH COVID 19. THE ID NOW COVID-19 2.0 TEST HAS BEEN AUTHORIZED BY THE FDA UNDER EAU FOR USE BY AUTHORIZED LABORATORIES. PERFORMED BY NUCLEIC ACID AMPLIFICATION FOR MOLECULAR QUALITATIVE DETECTION OF SARS-COV-2. SPECIMEN TYPE NASAL 01/22/2025 1:54 PM CDT [facility] NASAL STRUCTURE / Unknown 01/22/2025 1:54 PM CDT Shahram Gilman NP MICROBIOLOGY - GENERAL ORDERAB LES Final Result [facility] [address] [place] [address], [place] [phone] * (ABNORMAL) COMPREHENSIVE METABOLIC PANEL (01/22/2025 1:48 PM CDT) GLUCOSE 192(H) 70 - 99 MG/DL 01/22/2025 2:28 PM CDT [facility] BUN 26(H) 7 - 18 MG/DL 01/22/2025 2:28 PM CDT [facility] CREATININE S/P/B 1.68(H) 0.7 - 1.3 MG/DL 01/22/2025 2:28 PM CDT [facility] SODIUM S/P/B 137 136 - 145 MMOL/L 01/22/2025 2:28 PM CDT [facility] POTASSIUM S/P/B 4.5 3.5 - 5.1 MMOL/L 01/22/2025 2:28 PM CDT [facility] CHLORIDE S/P/B 99 97 - 115 MMOL/L 01/22/2025 2:28 PM CDT [facility] CO2 35.7(H) 21 - 32 MMOL/L 01/22/2025 2:28 PM CDT [facility] CALCIUM S/P/B 9.7 8.5 - 10.1 MG/DL 01/22/2025 2:28 PM CDT [facility] BILIRUBIN TOTAL S/P/B 0.5 0.2 - 1.2 MG/DL 01/22/2025 2:28 PM CDT [facility] Comment: THIS ASSAY IS NOT RECOMMENDED FOR PATIENTS UNDERGOING TREATMENT WITH ELTROMBOPAG DUE TO THE POTENTIAL FOR FALSELY ELEVATED RESULTS. TOTAL PROTEIN S/P/B 7.4 6.4 - 8.2 G/DL 01/22/2025 2:28 PM CDT [facility] ALBUMIN S/P/B 2.9(L) 3.4 - 5.0 G/DL 01/22/2025 2:28 PM CDT [facility] AST 10(L) 15 - 37 U/L 01/22/2025 2:28 PM CDT [facility] ALT 13(L) 16 - 60 U/L 01/22/2025 2:28 PM CDT [facility] ALKALINE PHOSPHATASE S/P/B 96 50 - 136 U/L 01/22/2025 2:28 PM CDT [facility] ANION GAP 2.3 2 - 10 MMOL/L 01/22/2025 2:28 PM CDT [facility] BUN CREATININE RATIO 15.5 6 - 26 01/22/2025 2:28 PM CDT [facility] A/G RATIO 0.6(L) 1.0 - 2.0 RATIO 01/22/2025 2:28 PM CDT [facility] GFR ESTIMATE 45(L) >90 ML/MIN/1.7 3 M2 01/22/2025 2:28 PM CDT [facility] Comment: NOTE: eGFR is not calculated for patients <18 years of age or gender unknown. This is an estimated GFR calculation using the new CKD EPI creatinine equation without race and so does not require a correction factor for race. This estimated GFR should not be used for calculating drug doses. 01/22/2025 1:48 PM CDT Shahram Gilman NP LABORATORY Final Result [facility] [address] [place] [address], * (ABNORMAL) D-DIMER, QUANTITATIVE (01/22/2025 1:48 PM CDT) D-DIMER 610(HH) 0 - 500 ng{FEU}/mL 01/22/2025 2:31 PM CDT [facility] Comment: D-Dimer values less than or equal to 500 ng/mL FEU have a negative predictive value of >95% for exclusion of deep vein thrombosis and pulmonary embolism. In patients over 50 (who tend to have higher normal baseline D-Dimer values), recent studies suggest age-adjusted D-Dimer cutoff values (calculated as: age [years] x 10 ng/mL) result in equivalent outcomes and no additional false negative findings. Successful Call: [email or web address] called 01/22/2025 02:31 PM to EMERGENCY ROOM (Silvio/LENA MOODY) by [id number]. Read Back: Yes 01/22/2025 1:48 PM CDT Shahram Gilman DOOR [facility] LABORATORY Final Result Performing Organization Address [facility]/ZIP Co de Phone Number [facility] [address] [place] [address], * (ABNORMAL) IRON SAT PANEL (IRON,IBC,%SAT) (01/22/2025 1:47 PM CDT) IRON 29(L) 65.0 - 175.0 MCG/DL 01/22/2025 6:01 PM CDT [facility] IRON BINDING CAPACITY 464(H) 250 - 450 MCG/DL 01/22/2025 6:01 PM CDT [facility] IRON SATURATION 6(L) 20 - 55 % 6:01 PM CDT [facility] 01/22/2025 1:47 PM CDT Padmini Cl[facility] Final Result Performing Organization Address [facility] Co de Phone Number [facility] [address] [place] [address], from Last 3 Months Insurance [facility] Advance Directives * Full Code (Latest Code Status on File) Date Activated Date Inactivated Comments 03/15/2025 3:33 PM 03/24/2025 3:47 PM * Full Code Date Activated Date Inactivated Comments 01/22/2025 4:07 PM 02/04/2025 8:58 PM * Full Code Date Activated Date Inactivated Comments 07/18/2023 11:11 PM 07/19/2023 11:06 AM * Full Code Date Activated Date Inactivated Comments 05/07/2023 9:53 PM 05/25/2023 7:29 PM * Full Code Date Activated Date Inactivated Comments 08/19/2020 4:44 PM 08/23/2020 2:20 PM Care Teams Health Screener Relationship Specialty Start Date End Date Zachary Allen MD [address] [place] [address] PCP - General INTERNAL MEDICINE 03/27/25
--- OUTSIDE RECORDS SUMMARY | 2025-04-24 11:45 | XMS_ITS | Encounter Summary ---
Author Organization [facility] Address [address] [place] [address] Care Team Providers Care Agricultural Sciences Professor Name Role Phone Zachary Allen MD Primary Care Provider [phone] Reason for Visit * Auth/Cert (Routine) Specialty Diagnoses / Procedures Referred By Alex eddy Referred To Contact Home Health Services Referral ID Status Reason Start Date Expiration Date Visits Re quested Visits Authorized [id number] 08 09 Encounter Details Date Type Department Care Team (Late st Contact Info) Description 04/24/2025 11:45 AM CDT Home Care Visit [facility] Home Care [address] [place] [id number] Shikha Posada, PT [address] [place] [address] PT OASIS DISCHARGE Social History Tobacco Use Types Packs/Day Years [...] materials from doctor or pharmacy Never 03/29/2025 [facility] Utilities Answer Date Recorded In the past 12 months has th e electric, gas, oil, or water company threatened to shut off services in your [...] or ex-partner? No 03/15/2025 Social Connection and Isolation Panel Answer Date Recorded In a typical week, how many times do you talk on the phone with family, friends, or neighbors? More than three times a week 01/22/2025 How often do you get togethe r with friends or relatives? Twice a week 01/22/2025 How often do you attend [facility] or adventism services? 1 to 4 times per year 01/22/2025 Do you belong to any clubs o r organizations such as orthodox groups, unions, fraternal or athletic groups, or [...] and heating? Not hard at all 03/15/2025 [facility] - Occupational Stress Questionnaire Answer Date [...] place to sleep or slept in a long term (including now)? No 05/07/2023 Housing Stability Vital Sign Answer Joseluis e Recorded In the last 12 months, was t here a time when you were not able to pay the mortgage or rent on time? No 03/15/2025 In the past 12 months, how m any times have you moved where you were living? 0 03/15/2025 At any time in the past 12 m [facility], were you homeless or living in a long term (including now)? No 03/15/2025 Sex and Gender Information Value Date Recorded Sex Assigned at Male 01/22/2025 1:19 PM CDT Legal Sex Male 6:44 AM AUTOMOTIVE FUEL INJECTION SERVICER Gender Identity Not on file Sexual Orientation Not on file documented as of this encounter Last Filed Vital Signs Vital Sign Reading Time Taken Comments Blood Pressure 138/78 04/24/2025 11:45 AM CDT Pulse 70 04/24/2025 11:45 AM CDT Temperature - - Respiratory Rate 20 04/24/2025 11:45 AM CDT Oxygen Saturation 91% 04/24/2025 11:45 AM CDT Inhaled Oxygen Concentration - - Weight - - Height - - Body Mass Index - - documented in this encounter Functional Status * Are you deaf or do you have serious difficulty hearing Answer Date of Assessment Author Status No 03/15/2025 3:54 PM HILDAT Ghislaine Rodriguez RN Active * Are you blind or do you have serious difficulty seeing, even when wearing glasses? Answer Date of Assessment Author Status No 03/15/2025 3:54 PM HILDAT Ghislaine Rodriguez RN Active * Do you have serious difficulty walking or climbing stairs? Answer Date of Assessment Author Status Yes 03/15/2025 3:54 PM Ghislaine Dela Cruz RN Active * Do you have difficulty dressing or bathing? Answer Date of Assessment Author Status No 03/15/2025 3:54 PM HILDAT Ghislaine Rodriguez RN Active * Because of a physical, mental, or emotional condition, do you have difficulty doing errands alone such as visiting a doctor's office or shopping? Answer Date of Assessment Author Status No 03/15/2025 3:54 PM Ghislaine Dela Cruz RN Active documented as of this encounter Mental Status * Because of a physical, mental, or emotional condition, do you have serious difficulty concentrating, remembering, or making decisions? Answer Entry Date Author Status No 03/15/2025 3:54 PM Ghislaine Dela Cruz RN Active documented in this encounter Plan of Treatment Upcoming Encounters Date Type Department Care Team (Late st Contact Info) Description 05/22/2025 3:00 PM AUTOMOTIVE FUEL INJECTION SERVICER Office Visit [facility] THREE [facility], [address] [place], [place] [id number] Inessa Arriola MD Three [facility]. [address] [place] [address] 05/27/2025 2:00 PM AUTOMOTIVE FUEL INJECTION SERVICER Telemedicine [facility] Medical Group Multispecialty Care - [facility] [address] [facility] [place] [id number] Fabio Hernandez MD [address] [facility] [address] [place] [address] 08/15/2025 10:15 AM AUTOMOTIVE FUEL INJECTION SERVICER Office Visit [facility] THREE [facility], [address] [place] [address] Marita Hargrove APRN Three [facility]. [address] [place], [place] [id number] documented as of this encounter Goals Goal Patient Goal Type Associated Problems [...] ADLs independently Lifestyle No Danielle Contreras RN documented as of this encounter Visit Diagnoses Not on filedocumented in this encounter Home Health Visit - Care Plan Visit Details Visit Type -PT - OASIS Disch arge Discipline -Physical Therapy Problems Problem Description Start Date Status Goals Interve ntions Decreased Functional Mobility Disciplines: PT 04/02/2025 Resolved on 04/24/2025 1 goal linked to scheduled/documen carmen intervention 1 goal intervention scheduled/documen carmen in this visit Collaboration of Care Disciplines: PT Collaboration for safe care. 04/02/2025 Resolved on 04/24/2025 3 goals linked to scheduled/documen carmen interventions 6 goal interventions scheduled/documen carmen in this visit Decreased Strength Disciplines: PT Decreased strength in lower extremities. 04/02/2025 Resolved on 04/24/2025 1 goal linked to scheduled/documen carmen intervention 1 goal intervention scheduled/documen carmen in this visit Balance Deficit Disciplines: PT Impaired balance with potential safety problems 04/02/2025 Resolved on 04/24/2025 1 goal linked to scheduled/documen carmen intervention 1 goal intervention scheduled/documen carmen in this visit Goals Goal Associated Problem Outcome Goal Met? Visit Notes Patient improves functional mobility Description: Patient to ambulate with sba indoors with device as needed for 50 ft to assist with doctor appointments by 04/10 Patient to ambulate with supervision indoors with device as needed for 100 ft to assist with doctor appointments by 04/26 Decreased Functional Mobility Completed Yes Patient verbalizes understanding of medication regimen Description: Patient will verbalize understanding of medication regimen by 04/26. Collaboration of Care Completed Yes Patient safety met through collaboration for safe care. Description: Clinicians will communicate patient care and safety needs during episode of care through 04/26. Collaboration of Care Completed Yes PT - Homebound Status Description: Patient meets requirements of homebound status as evidenced by impaired gait and stability, decreased cardiac reserve, taxing effort to enter and exit the home, inability to leave the home without caregiver present, w/c required, to leave the home. Collaboration of Care Completed Yes Patient increases strength and/or functional mobility Description: Patient to demonstrate independence with LE HEP with increased LE MMT to 5/5 to promote improved mobility in/out of the home by 04/26 Decreased Strength Completed Yes Patient improves balance and reduces fall risk Description: Patient to improve balance and complete 2 stages of 4-stage balance test by 04/19 Patient to complete 30 sec sit to stand x 3 by 04/26 Balance Deficit Completed Yes Interventions Intervention Associated Problem/Goal Status Variance Visit Notes Gait Deficit Description: Gait training. Problem:Decreased Functional Mobility Goal:Patient improves functional mobility Performed Instructed patient on gait training with deviations as noted above. Medication Reconciliation Description: - Review and identify unnecessary therapeutic duplication. Each clinician to perform bottle check weekly on their first visit of the week. Problem:Collaboration of Care Goal:Patient verbalizes understanding of medication regimen Performed Meds reviewed Assess Vital Signs Description: Obtain and record vital signs. Report to MD . BP: systolic blood pressure <90 or >160; diastolic blood pressure <60 or >90. Temperature: >100.5 F. Pulse: <60 or >100 bpm. Respiratory Rate: <12 or >28 /min. SPO2: <90%. May check SPO2 as needed for i nitial assessment or dyspnea. Problem:Collaboration of Care Goal:Patient safety met through collaboration for safe care. Performed Vitals within normal parameters Instruct Home Safety Description: Instruct patient on strategies/modification s to home environment. Problem:Collaboration of Care Goal:Patient safety met through collaboration for safe care. Performed Patient was instructed on home safety and fall prevention techniques including 1. Keep all pathways clear. 2. Remove or tape down throw rugs. 3. Wear well fitting shoes when transferring or ambulating. 4. Use assist device when ambulating. 5. Night light at night in event of being up to toilet in night. 6. Change position slowly. 7. Stand for one or two minutes before walking. 8. All electrical cords should be along lemus and not running across pathways. 9. Non slip mats in bathroom. Patient verbalised a good understanding of all instructions. Plan Towards Discharge Description: Document Patient progress towards discharge. Problem:Collaboration of Care Goal:Patient safety met through collaboration for safe care. Performed DC from PT and agency with outcomes met Care Coordination Description: Clinician to review plan of care with patient/caregivers(s). Patient/Caregiver(s) agree(s) to plan of care and agrees to participate in care. Problem:Collaboration of Care Goal:Patient safety met through collaboration for safe care. Performed Report received from Sourav Negron PTA. Plan for Next Visit Description: Next visit plan summation Problem:Collaboration of Care Goal:Patient safety met through collaboration for safe care. Performed DC from PT and agency with outcomes met Decreased Strength Description: - Therapeutic exercise. - Establish home exercise program. Problem:Decreased Strength Goal:Patient increases strength and/or functional mobility Performed Reviewed all HEP Balance Deficit Description: - Therapeutic exercise. - Establish or upgrade home program. - Implement balance training. - Perform home safety assessment and give recommendations to Patient . Problem:Balance Deficit Goal:Patient improves balance and reduces fall risk Performed rhomberg mod tandem documented in this encounter Care Teams Agricultural Sciences Professor Relationship Specialty Start Date End Date Zachary Allen MD [address] [place] [address] PCP - General INTERNAL MEDICINE 03/27/25 documented as of this encounter
--- OUTSIDE RECORDS SUMMARY | 2025-04-25 08:22 | XMS_ITS | Encounter Summary ---
Author Organization [facility] Address [address] [place] [address] Care Team Providers Care Plant Operations Coordinator Name Role Phone Quincy Rosado MD Primary Care Provider [phone] None, Provider Primary Care Provider Zachary Longoria MD Primary Care Provider [phone] Encounter Details Date Type Department Care Team (Late st Contact Info) Description 11/01/2020 Prep for Procedure [facility] [place] [phone] Kevin Briggs MD 3 [facility] [address] [place], [place] [phone] Social History Tobacco Use Types Packs/Day Years [...] PM CDT Legal Sex Male 6:44 AM MEDICAL VOUCHER CLERK Gender Identity Not on file Sexual Orientation [...] Assessment Author Status No 08/19/2020 10:15 PM MEDICAL VOUCHER CLERK 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 Answer Date of Assessment Author Status No 08/19/2020 10:15 PM MEDICAL VOUCHER CLERK Acti ve * Do you have serious [...] st Contact Info) Description 05/22/2025 3:00 PM MEDICAL VOUCHER CLERK [facility] [address] [place] [address] Inessa Arriola MD [facility]. [address] [place] [address] 05/27/2025 2:00 PM MEDICAL VOUCHER CLERK Telemedicine [facility] Medical Group Multispecialty Care - [facility] [address] [facility] [place] [address] Fabio Hernandez MD [address] [place] [address] [address] [place] [address] 08/15/2025 10:15 AM MEDICAL VOUCHER CLERK Office Visit [facility] THREE [facility], [address] [place] [address] Marita Hargrove APRN Three [facility]. [address] [place] [address] documented as of this encounter Visit Diagnoses [...] documented as of this encounter Care Teams Plant Operations Coordinator Relationship Specialty Start Date End Date Quincy Rosado MD [address] [address] PCP - General INTERNAL MEDICINE 08/19/20 03/14/25 None, MD Faraz PCP - General UNKNOWN PHYSICIAN SPECIALTY 03/15/25 03/18/25 Zachary Allen MD [address] [place] [address] PCP - General INTERNAL MEDICINE 03/27/25 documented as of this encounter
--- OUTSIDE RECORDS SUMMARY | 2025-04-25 08:22 | XMS_ITS ---
Author Organization [facility] Care Team Providers Care Structural Steel Erection Supervisor Name Role Phone Guy Ellington Unavailable Unavailable Allergies and adverse reactions Code CodeSystem Substance Reaction Severity StartDate Concern Status Sulfa Antibiotics [place], [place] (code- null, null) Unknown 06/10/2023 active Care Team Name Role Address Phone Organization Dates Guy Ellington PCP [address] [place], [address], [place] (Office): : : [facility] 06/11/2023 - 06/11/2023 Mental Status Section Date Assessment Total Score Description 06/11/2023 CAM 0 No delirium ind icated 06/11/2023 BIMS 15 cognitively int act CAM 0 No delirium ind icated PHQ-9 15 moderately bryce re depression Insurance Providers Problems Problem # Description Date of onset Resolved Date Code CodeSystem Concern Status 1 UNSTEADINESS ON FEET 07/13/[address] active 2 DIFFICULTY IN WALKING, NOT ELSEWHERE CLASSIFIED 06/11/[address] active 3 NEED FOR ASSISTANCE WITH PERSONAL CARE 06/11/[address] active 4 WEAKNESS 06/11/[address] active 5 ACUTE RESPIRATORY FAILURE, UNSPECIFIED WHETHER WITH HYPOXIA OR HYPERCAPNIA 06/10/[address] active 6 ARTHROSCOPIC SURGICAL PROCEDURE CONVERTED TO OPEN PROCEDURE 06/10/[address] active 7 BENIGN PROSTATIC HYPERPLASIA WITH LOWER URINARY TRACT SYMPTOMS 06/10/[address] active 8 BODY MASS INDEX [BMI] 45.0-49.9, ADULT 06/10/[address] active 9 CHRONIC KIDNEY DISEASE, STAGE 3 UNSPECIFIED 06/10/[address] active 10 GASTRO-ESOPHAGEAL REFLUX DISEASE WITHOUT ESOPHAGITIS 06/10/[address] active 11 HYPERLIPIDEMIA, UNSPECIFIED 06/10/[address] active 12 HYPERTENSIVE HEART AND CHRONIC KIDNEY DISEASE WITHOUT HEART FAILURE, WITH STAGE 1 THROUGH STAGE 4 CHRONIC KIDNEY DISEASE, OR UNSPECIFIED CHRONIC KIDNEY DISEASE 06/10/[address] active 13 HYPOTHYROIDISM, UNSPECIFIED 06/10/[address] active 14 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 (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) USE OF INSULIN 06/10/[address] active 15 METABOLIC ENCEPHALOPATHY 06/10/[address] active 16 MORBID (SEVERE) OBESITY WITH ALVEOLAR HYPOVENTILATION 06/10/[address] active 17 OBSTRUCTIVE SLEEP APNEA (ADULT) (PEDIATRIC) 06/10/[address] active 18 PAIN IN LEFT KNEE 06/10/[address] active 19 RETENTION OF URINE, UNSPECIFIED 06/10/[address] active 20 SEPSIS, UNSPECIFIED ORGANISM 06/10/[address] active 21 TYPE 2 DIABETES MELLITUS WITH DIABETIC CHRONIC KIDNEY DISEASE 06/10/[address] active 22 VITAMIN D DEFICIENCY, UNSPECIFIED 06/10/[address] active Reason for Referral No Reasons for Referral Entered Social History Social History Observation Description Start Date End Date Code Code System Current Smoking Status Tobacco smoking consumption unknown 061886619 SNOMED CT Sex Assigned At Male 1960 [address]79-5 [facility] Gender Identity Sexual Orientation Vital Signs Code Code System Vitals Name Values and Units Timing Information 72277-5 LOINC Pain Level Value=0.0 06/11/2023 8302-2 LOINC Height Value=72.0 Units=Inches 1 08/12/2022
--- OUTSIDE RECORDS SUMMARY | 2025-04-25 08:22 | XMS_ITS | Clinical Summary ---
Author Organization [facility] Address [address] [place] [address] Care Team Providers Care Radiology Tech Name Role Phone Quincy Rosado Primary Care [...] Comments Blood Pressure 132/68 06/10/2023 7:40 AM TYING MACHINE OPERATOR Pulse 81 06/10/2023 7:40 AM TYING MACHINE OPERATOR Temperature 37.3 C (99.2 F) 06/10/2023 7:40 AM TYING MACHINE OPERATOR Respiratory Rate 18 06/10/2023 7:40 AM TYING MACHINE OPERATOR Oxygen Saturation 96% 06/09/2023 7:30 PM TYING MACHINE OPERATOR Inhaled Oxygen Concentration - - Weight 168.3 kg (371 lb) 06/10/2023 4:00 AM TYING MACHINE OPERATOR Height 182.9 cm (6' 0.01) 05/25/2023 7:04 PM CS T Body Mass Index 50.31 05/25/2023 7:04 PM TYING MACHINE OPERATOR Plan of Treatment Health Maintenance Due Date [...] have received informed consent. Yes Care Teams Radiology Tech Relationship Specialty Start Date End Date Quincy Rosado [address] [place] [address] PCP - General 05/26/23
--- OUTSIDE RECORDS SUMMARY | 2025-04-25 08:22 | XMS_ITS | Clinical Summary ---
Author Organization [id number] [facility] Address [address] [place] [address] Care Team Providers Care Plunket Nurse Name Role Phone Zachary Allen MD Primary Care Provider [phone] Allergies Active Allergy Reactions Criticality Noted Date Comments Sulfa (Sulfonamide Antibiotics) Hives High 04/11 Medications aspirin (ECOTRIN EC) 81 mg Tablet, Delayed Release (E.C.) Take 1 Tablet by mouth. 015 Active triamcinolone acetonide (KENALOG) 0.1 % Cream Apply to affected area 2 times daily. Apply to affected area of leg(s) 1 to 2 times per day up to 2 to 4 weeks Active Insulin Warwick, Disposable, (Novofine 32) 32 gauge x 1/4 Needle by [facility].(Non-Drug; Combo Route) route. Active Insulin Warwick, Disposable, (TechLITE Pen Needle) 32 gauge x 1/4 Needle by Misc.(Non-Drug; Combo Route) route. Active acetaminophen (TYLENOL) 325 mg tablet Take 650 mg by mouth every 4 hours as needed. 023 Active cyanocobalamin 1,000 mcg Tablet Take 1,000 mcg by mouth daily. Active mupirocin (BACTROBAN) 2 % Ointment Apply to affected area daily. 30 Gram 1 025 Active Cholestyramine- Sucrose 4 gram Powder DISSOLVE 2 GRAMS( 1/2 SCOOP) INTO LIQUID AND DRINK BY MOUTH DAILY 378 Gram 1 025 Active finasteride (PROSCAR) 5 mg tablet Take 1 Tablet (5 mg) by mouth daily. 90 Tablet 3 025 Active atorvastatin (LIPITOR) 40 mg tablet Take 1 Tablet (40 mg) by mouth daily at bedtime. 100 Tablet Active tamsulosin (FLOMAX) 0.4 mg capsule Take 1 Capsule (0.4 mg) by mouth daily. 90 Capsule Active carvediloL (COREG) 25 mg tablet Take 1 Tablet (25 mg) by mouth 2 times daily. 100 Tablet Active allopurinoL (ZYLOPRIM) 300 mg tablet Take 1 Tablet (300 mg) by mouth daily. 90 Tablet Active blood sugar diagnostic (BoardProspectsTouch Ultra Test) StripIndication s:Type 2 diabetes mellitus with diabetic nephropathy, with long-term current use of insulin Use to test blood sugars 5-6 times a day 200 Strip Active Insulin Warwick, Disposable, (TechLITE Pen Needle) 32 gauge x 5/32 Needle Inject 100 Each by subcutaneous injection daily. 100 Each Active metFORMIN (GLUCOPHAGE) 1,000 mg tablet Take 1 Tablet (1,000 mg) by mouth 2 times daily. 200 Tablet Active pantoprazole (PROTONIX) 40 mg Tablet, Delayed Release (E.C.) Take 1 Tablet (40 mg) by mouth daily. 100 Tablet Active albuterol sulfate HFA 90 mcg/actuation aerosol inhaler 2 Puffs by See Admin Instructions route see administration instructions. SHAKE AND INHALE 2 PUFFS INTO THE LUNGS FOUR TIMES DAILY NEEDED; RINSE MOUTH AFTER USE 20.1 Gram Active HumaLOG KwikPen Insulin 100 unit/mL pen syringeIndicati ons:Type 2 diabetes mellitus with diabetic nephropathy, with long-term current use of insulin 30 units by subcutaneous injection in the morning, 30units with lunch and 36 units in the evening 87 mL Active magnesium OXIDE (MAG-OX) 400 mg (241.3 mg magnesium) tablet Take 1 Tablet (400 mg) by mouth daily. 90 Tablet 1 Active levothyroxine 200 mcg tabletIndicatio ns:Hypothyroidi sm, unspecified type Take 1 Tablet (200 mcg) by mouth daily in the morning. Take on an empty stomach. Take with 25mcg tablet for total dose of 225mcg. 90 Tablet 3 08/19/2 025 Active levothyroxine 25 mcg tabletIndicatio ns:Hypothyroidi sm, unspecified type Take 1 Tablet (25 mcg) by mouth daily in the morning. 100 Tablet 3 025 Active furosemide (LASIX) 80 mg tabletIndicatio ns:Acute heart failure with preserved ejection fraction Take 1 Tablet (80 mg) by mouth daily. 100 Tablet 3 Active amLODIPine (NORVASC) 5 mg tabletIndicatio ns:Primary hypertension Take 1 Tablet (5 mg) by mouth daily. 100 Tablet 3 025 Active furosemide (LASIX) 40 mg tabletIndicatio ns:Acute heart failure with preserved ejection fraction Take 1 Tablet (40 mg) by mouth daily at bedtime. 100 Tablet 3 025 Active spironolactone (ALDACTONE) 25 mg tabletIndicatio ns:Acute heart failure with preserved ejection fraction Take 0.5 Tablets (12.5 mg) by mouth daily. 50 Tablet 3 Active furosemide (LASIX) 20 mg tablet Take 3 Tablets (60 mg) by mouth daily. 90 Tablet 3 025 2024 Discontinued amLODIPine (NORVASC) 10 mg tablet Take 1 Tablet (10 mg) by mouth daily. 100 Tablet 3 025 2024 Discontinued Active Problems Problem Noted Date Diagnosed Date Acute heart failure with preserved ejection frac tion 02/07/2025 Acute respiratory failure with hypoxia Gout 05/30/[address] 05/29/2024 [...] follow up in Lab titration for CPAP/BPAP, sachaie will recommend oral applaince HTN (hypertension) 10/09/2018 [...] Encounters Date Type Department Care Team Description 04/19/2025 2:00 PM CDT Video Visit [facility] Internal Medicine - [address] [address] Zachary Allen MD Hospital discharge follow-up (Primary Dx); Acute respiratory failure with hypoxia (CMS/HCC); Primary hypertension; Acute heart failure with preserved ejection fraction; Weakness 04/17/[address] [address] Zachary Allen MD 04/15/[address] [phone] Zachary Allen MD Information 04/12/[address] [address] Zachary Allen MD 03/28/[address] [address] Zachary Allen MD 03/27/[address] [address] Zachary Allen MD Provider Call 03/12/2025 External Device Data STL ABSTRACTION Provider, Abstract 03/12/2025 Nurse Triage [address] [address] Zachary Allen MD 02/27/2025 External Device Data STL ABSTRACTION Provider, Abstract 02/26/2025 Results Follow-Up [address] [address] Zachary Allen MD URINALYSIS WITH REFLEX CULTURE, URINE CULTURE 02/26/2025 Results Follow-Up [address] [address] Zachary Allen MD PSA, COMPREHENSIVE METABOLIC PANEL, CBC WITHOUT DIFFERENTIAL, Additional followed-up results: 8 02/21/[address] [address] Zachary Allen MD billing problem 02/14/[address] [address] Zachary Allen MD Medication Assistance 02/13/2025 External Device Data STL ABSTRACTION Provider, Abstract 02/13/[address] [address] Zachary Allen MD Remote Monitoring 02/13/2025 Refill [facility] [address] [place] [address] [address] [place] [address] Zachary Allen MD 02/12/2025 External Device Data ST[facility] ABSTRACTION Provider, Abstract 02/12/[address] [address] Zachary Allen MD Type 2 diabetes mellitus with diabetic nephropathy, with long-term current use of insulin (CMS/HCC) 02/07/2025 2:00 PM CDT Office Visit [address] [address] Zachary Allen MD Acute heart failure with preserved ejection fraction (CMS/HCC) (Primary Dx); Encounter for colorectal cancer screening; Morbid obesity with body mass index of 40.0-49.9 (CMS/HCC); JOANA (obstructive sleep apnea); Primary hypertension; Benign prostatic hyperplasia with urinary retention; Type 2 diabetes mellitus with diabetic nephropathy, with long-term current use of insulin (CMS/HCC); Acquired hypothyroidism; Mixed hyperlipidemia; Murphy catheter in place; Reduced mobility; Retention of urine, unspecified; Screening for prostate cancer; History of anemia; Acute respiratory failure with hypoxia (CMS/HCC) 02/04/2025 Patient Outreach [address] [phone] Zachary Allen MD Primary Care Outreach (Spoke to pt regarding there PCP Dr Alonzo cordon and the [facility] Closing and needing to select a new provider. Was able to schedule an appt for pt with Dr Zachary Allen./) 01/23/2025 External Device Data STL ABSTRACTION Provider, Abstract 01/23/2025 External Device Data STL ABSTRACTION Provider, Abstract from Last 3 Months Immunizations Immunization Administration [...] st Contact Info) Description 05/14/2025 2:40 PM SUPERVISOR BONDING Office Visit [facility] Internal Medicine - [facility] [address] [place] [address] Zachary Allen MD [address] [place] [address] 05/15/2025 9:20 AM SUPERVISOR BONDING Office Visit [facility] Urology [facility] [address] [facility] [address] [place] [address] Beatris Courtney, ALEJANDRA [address] [facility] [address] [place] [address] Health Maintenance Due Date Last Done Comments [...] 1:37 PM CDT) COLOR UA YELLOW YELLOW [facility] CLARITY UA CLOUDY(A) CLEAR [facility] SPECIFIC GRAVITY UA 1.013 1.001 - 1.035 [facility] PH UA < OR = 5.0(A) 5.0 - 8.0 [facility] GLUCOSE UA NEGATIVE NEGATIVE [facility] BILIRUBIN UA NEGATIVE NEGATIVE [facility] KETONES UA NEGATIVE NEGATIVE [facility] BLOOD UA TRACE(A) NEGATIVE [facility] PROTEIN UA 2+(A) NEGATIVE [facility] NITRITE UA NEGATIVE NEGATIVE [facility] LEUKOCYTE ESTERASE UA 2+(A) NEGATIVE [facility] WBC UA 10-20(A) < OR = 5 /HPF [facility] RBC UA 0-2 < OR = 2 /HPF [facility] EPITHELIAL CELLS, URINE 6-10(A) < OR = 5 /HPF [facility] BACTERIA UA MANY(A) NONE SEEN /HPF [facility] HYALINE CAST 0-5(A) NONE SEEN /LPF [facility] URINE NOTE [facility] Comment: This urine was analyzed for the presence of WBC, RBC, bacteria, casts, and other formed elements. Only those elements seen were reported. URINE CULTURE [facility] Comment: CULTURE INDICATED - RESULTS TO FOLLOW Test Performed at: [place] [address] [place] [address] Philippe Berrios Urine URINE SPECIMEN OBTAINED BY CLEAN CATCH PROCEDURE / Unknown 02/25/2025 1:37 PM CDT 02/25/2025 1:37 PM CDT Zachary Allen MD URINE ORDERABLES Final Result [facility] [phone] [place] [address] [place] [address] * (ABNORMAL) URINE CULTURE (02/25/2025 1:37 PM CDT) URINE CULTURE SEE NOTE(A) [facility] Comment: CULTURE, URINE, ROUTINE Micro Number: [id number] Test Status: Final Specimen Source: Urine Specimen [...] cefuroxime, cephalexin and loracarbef. Test Performed at: [place] [address] [place] [address] Philippe Berrios 02/25/2025 1:37 PM CDT 02/25/2025 1:37 PM CDT Zachary Allen MD MICROBIOLOGY - GENERAL ORDERABL ES Final Result [facility] [phone] [place] [address] [place] [address] * (ABNORMAL) MICROALBUMIN/CREATININE RATIO, RANDOM UR (02/25/2025 1:26 PM CDT) CREATININE, URINE 67 20 - 320 mg/dL [facility] ALBUMIN, URINE 42.7 See Note: mg/dL [facility] Comment: Reference Range: Reference Range Not established Results verified by repeat analysis on dilution. ALB/CREAT RATIO, URINE 637(H) <30 mg/g creat [facility] Comment: The ADA defines abnormalities in albumin excretion as follows: Albuminuria Category Result (mg/g creatinine) Normal to Mildly increased <30 Moderately increased 30-299 Severely increased > OR = 300 The ADA recommends that at least two of three specimens collected within a 3-6 month period be abnormal before considering a patient to be within a diagnostic category. Test Performed at: [facility] [address] [place] [address] Philippe Berrios MD 02/25/2025 1:26 PM CDT 02/25/2025 1:27 PM CDT Zachary Allen MD URINE ORDERABLES Final Result Performing Organization Address [facility] Co de Phone Number [facility] [phone] [facility] [place] [address] [place] [address] * (ABNORMAL) IRON, TIBC, AND PERCENT SATURATION (02/25/2025 1:26 PM CDT) IRON 63 50 - 180 mcg/dL [facility] TIBC 380 250 - 425 mcg/dL (calc) [facility] IRON % SATURATION 17(L) 20 - 48 % (calc) [facility] Comment: Test Performed at: [facility] [address] [place] [address] Philippe Berrios MD Blood 02/25/2025 1:26 PM CDT 02/25/2025 1:27 PM CDT Zachary Allen MD CHEMISTRY ORDERABLES Final Resu lt Performing Organization Address [facility] Co de Phone Number [facility] [phone] [facility] [address] [place] [address] * RETICULOCYTES (02/25/2025 1:26 PM CDT) RETICULOCYTES 2.0 % [facility] RETICULOCYTE, ABSOLUTE 86,200 25,000 - 90,000 cells/uL [facility] Comment: FASTING:NO FASTING: NO Test Performed at: [facility] [address] [place] [address] Philippe Berrios MD Blood 02/25/2025 1:26 PM CDT 02/25/2025 1:27 PM CDT Zachary Allen MD HEMATOLOGY ORDERABLES Final Res ult Performing Organization Address [facility] Co de Phone Number [facility] [phone] [facility] [address] [facility] [place] [address] * (ABNORMAL) CBC WITHOUT DIFFERENTIAL (02/25/2025 1:26 PM CDT) WBC 5.6 3.8 - 10.8 Thousand/u L [...] Comment: FASTING:NO FASTING: NO Test Performed at: [facility] [address] [facility] [place] [place] [address] Philippe Berrios MD Blood 02/25/2025 1:26 PM CDT 02/25/2025 1:27 PM CDT us Zachary Allen MD HEMATOLOGY ORDERABLES Final Res ult Performing Organization Address [facility]/ZIP Co de Phone Number [facility] [phone] [facility] [address] [place] [address] [place] [address] * (ABNORMAL) TSH (02/25/2025 1:26 PM CDT) Pathologist [facility] TSH 10.20(H) 0.40 - 4.50 mIU/L [facility] Comment: Test Performed at: [facility] [place] [address] Philippe Berrios MD Blood 02/25/2025 1:26 PM CDT 02/25/2025 1:27 PM CDT Zachary Allen MD CHEMISTRY ORDERABLES Final Resu lt Performing Organization Address [facility]/ZIP Co de Phone Number [facility] [phone] [facility] [address] * PSA (02/25/2025 1:26 PM CDT) Pathologist [facility] PSA 0.35 < OR = 4.00 ng/mL [facility] Comment: The total PSA value from this assay system is standardized against the WHO standard. The test result will be approximately 20% lower when compared to the equimolar-standardized total PSA (Frandy Bree). Comparison of serial PSA results should be interpreted with this fact in mind. This test was performed using the Siemens chemiluminescent method. Values obtained from different assay methods cannot be used interchangeably. PSA levels, regardless of value, should not be interpreted as absolute evidence of the presence or absence of disease. FASTING:NO FASTING: NO Test Performed at: [facility] [place] [address] MollySummer Berrios MD Blood 02/25/2025 1:26 PM CDT 02/25/2025 1:27 PM CDT Zachary Allen MD CHEMISTRY ORDERABLES Final Resu lt [facility] [phone] [facility] [address] * (ABNORMAL) HEMOGLOBIN A1C (02/25/2025 1:26 PM CDT) HEMOGLOBIN A1C 8.3(H) <5.7 % of total Hgb [facility] Comment: For someone without known diabetes, a [...] children. ESTIMATED AVERAGE GLUCOSE (MG/DL) 192 mg/dL [facility] ESTIMATED AVERAGE GLUCOSE (MMOL/L) 10.6 mmol/L [facility] Comment: FASTING:NO FASTING: NO Test Performed at: [facility] [address] [place] [address] Philippe Berrios Blood 02/25/2025 1:26 PM CDT 02/25/2025 1:27 PM CDT Result [facility] Zachary Allen MD CHEMISTRY ORDERABLES Final Resu lt Performing Organization Address City/[facility]/ZIP Code Phone Number [facility] [phone] [facility] [address] [place] [address] * FERRITIN (02/25/2025 1:26 PM CDT) Pathologist [facility] FERRITIN 67 24 - 380 ng/mL [facility] Comment: Test Performed at: [facility] [address] [place] [address] Philippe Berrios MD Blood 02/25/2025 1:26 PM CDT 02/25/2025 1:27 PM CDT Zachary Allen MD CHEMISTRY ORDERABLES Final Resu lt Performing Organization Address City/State/ZIP [facility] Phone Number [facility] [phone] [facility] [address] [place] [address] * VITAMIN B12 LEVEL (02/25/2025 1:26 PM CDT) [facility] VITAMIN B12 312 200 - 1100 pg/mL [facility] Comment: Please Note: Although the reference range for vitamin B12 is 200-1100 pg/mL, it has been reported that between 5 and 10% of patients with values between 200 and 400 pg/mL may experience neuropsychiatric and hematologic abnormalities due to occult B12 deficiency; less than 1% of patients with values above 400 pg/mL will have symptoms. Test Performed at: [facility] [address] Philippe Berrios MD 02/25/2025 1:26 PM CDT 02/25/2025 1:27 PM CDT us Zachary Allen MD CHEMISTRY ORDERABLES Final Resu lt [facility] [phone] [facility] [address] * (ABNORMAL) LIPID PANEL (02/25/2025 1:26 PM CDT) [facility] CHOLESTEROL 84 <200 mg/dL [facility] HDL 28(L) > OR = 40 mg/dL [facility] TRIGLYCERIDE 163(H) <150 mg/dL [facility] LDL CALCULATED 32 mg/dL (calc) [facility] Comment: Reference range: <100 Desirable range <100 mg/dL for primary prevention; <70 mg/dL for patients with CHD or diabetic patients with > or = 2 CHD risk factors. LDL-C is now calculated using the Richelle calculation, which is a validated novel method providing better accuracy than the Friedewald equation in the estimation of LDL-C. Kristian WOODS et al. XAVI. 2013;310(19): 0858-7625 (http://education.[employer].Climber.com/faq/REB473) CHOL/HDL RATIO 3.0 <5.0 (calc) [facility] NON-HDL CHOLESTEROL 56 <130 mg/dL (calc) [facility] Comment: For patients with diabetes plus 1 major ASCVD risk factor, treating to a non-HDL-C goal of <100 mg/dL (LDL-C of <70 mg/dL) is considered a therapeutic option. Test Performed at: [facility] [address] [place] [address] Philippe Berrios MD Blood 02/25/2025 1:26 PM CDT 02/25/2025 1:27 PM CDT us Zachary Allen MD CHEMISTRY ORDERABLES Final Resu lt [facility] [phone] [facility] [address] [place] [address] * (ABNORMAL) COMPREHENSIVE METABOLIC PANEL (02/25/2025 1:26 PM CDT) GLUCOSE 132 65 - 139 mg/dL [facility] Comment: Non-fasting reference interval BUN 70(H) [...] [facility] Comment: Test Performed at: [facility] [address] [facility] [place] [address] Philippe Berrios MD Blood 02/25/2025 1:26 PM CDT 02/25/2025 1:27 PM CDT us Zachary Allen MD CHEMISTRY ORDERABLES Final Resu lt [facility] [phone] [facility] [address] [facility] [place] [address] from Last 3 Months Insurance [facility] Care Teams [place] Nurse Relationship Specialty Start Date End Date Zachary Allen MD [address] [place] [address] PCP - General Internal Medicine 02/04/25
--- OUTSIDE RECORDS SUMMARY | 2025-04-25 08:22 | XMS_ITS | Clinical Summary ---
Author Organization [facility] Address [address] [place] [address] Care Team Providers Care Director Of Sales Name Role Phone Zachary Allen MD Primary Care Provider [phone] Allergies Active Allergy Reactions Criticality Noted Date Comments Sulfa Antibiotics Hives High 05/07/2023 Medications pantoprazole EC 40 MG tabletIndicati [...] mouth daily. 30 tablet 03/24/20 25 Active spironolactone (ALDACTONE) 25 MG tabletIndicati ons:Diuresis Take 0.5 tablets (12.5 mg total) by mouth daily. 30 tablet 03/25/20 25 Active furosemide (LASIX) 80 MG tabletIndicati ons:Diuresis Indications: Increase in the Amount of Urine Produced Take 1 tablet (80 mg) daily in the AM. Then take 1/2 tablet (40 mg) daily in the PM. NEW DOSE 04/11/2025 60 tablet 04/11/20 25 Active furosemide (LASIX) 80 MG tabletIndicati ons:Diuresis Take 1 tablet (80 mg total) by mouth 2 (two) times daily. 60 tablet 03/24/20 25 025 Discontinued(R eorder) furosemide (LASIX) 80 MG tabletIndicati ons:Diuresis Indications: Increase in the Amount of Urine Produced Take 1 tablet (80 mg) daily in the AM. Then take 1/2 tablet (40 mg) daily in the PM. NEW DOSE 04/11/2025 OV 60 tablet 04/11/20 25 025 Discontinued furosemide (LASIX) 80 MG tabletIndicati ons:Diuresis Indications: Increase in the Amount of Urine Produced Take 1 tablet (80 mg) daily in the AM. Then take 1/2 tablet (40 mg) daily in the PM. NEW DOSE 04/11/2025 60 tablet 04/11/20 25 025 Discontinued Active Problems Problem Noted Date Diagnosed Date CHF exacerbation 03/15/2025 Acute heart failure with preserved ejection frac tion 02/07/2025 Diabetes 02/04/2025 Chronic heart failure with p reserved ejection fraction (HFpEF) 01/22/2025 Gout 05/30/[address] 05/29/2024 Reduced mobility 05/29/2024 Chronic venous htn w ulcer a nd inflam of bilateral low extrm 12/13/2023 Chronic diarrhea 11/23/2023 Impotence 11/23/2023 Morbid obesity 11/23/2023 Peripheral venous insufficiency 11/23/2023 Type II diabetes mellitus with nephropathy 11/22 Cellulitis 07/18/2023 Unsteadiness on feet 07/13/2023 Unsteadiness on feet 07/13/2023 Weakness 06/11/2023 Weakness 06/11/2023 Difficulty walking 06/11/2023 Difficulty walking 06/11/2023 Need for assistance with personal care 3 Body mass index (BMI) 45.0-49.9, adult 3 Vitamin D deficiency 06/10/2023 Acute respiratory failure, u nspecified whether with hypoxia or hypercapnia 06/10/2023 Body mass index (BMI) 45.0-49.9, adult 3 BPH (benign prostatic hyperplasia) 06/10/2023 BPH (benign prostatic hyperplasia) 06/10/2023 Hypertensive heart disease w ith hypertensive chronic kidney disease 06/10/2023 Hypertensive heart disease w ith hypertensive chronic kidney disease 06/10/2023 Hypothyroidism 06/10/2023 Left knee pain 06/10/2023 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 06/10/2023 Metabolic encephalopathy 06/10/2023 Hyperlipidemia, unspecified 06/10/2023 Mixed hyperlipidemia 06/10/2023 Morbid (severe) obesity with alveolar hypoventil ation 06/10/2023 Morbid (severe) obesity with alveolar hypoventil ation 06/10/2023 Retention of urine, unspecified 06/10/2023 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 Avoid eating less than 2 hours prior to bedtime. HTN (hypertension) 10/09/2018 Overview (04/11/2025): continue current therapy JOANA (obstructive sleep apnea) 10/09/2018 Overview (04/11/2025): Start with HSAT. if still severe will likely do follow up in Lab titration for CPAP/BPAP, leslyewsie will recommend oral applaince Encounters Date Type Department Care Team Description 04/24/2025 11:45 AM CDT Home Care Visit [facility] Home Care [address] [place] [address] Shikha Posada, PT PT OASIS DISCHARGE 04/22/2025 4:45 PM CDT Home Care Visit [facility] Home [place] [address] [place] [address] Sourav Negron, PLANT CONTROL OPERATOR PLANT CONTROL OPERATOR HOME VISIT 04/18/2025 1:00 PM CDT Home Care Visit [facility] Home [place] [address] [place] [address] Sourav Negron, PLANT CONTROL OPERATOR PLANT CONTROL OPERATOR HOME VISIT 04/17/2025 8:30 AM CDT Home Care Visit [facility] Home Care [address] [place] [address] Niurka Cabral, RN SN DISCIPLINE DISCHARGE 04/15/2025 2:15 PM CDT Home Care Visit [address] [place] [address] Sourav Negron, PLANT CONTROL OPERATOR PLANT CONTROL OPERATOR HOME VISIT 04/12/2025 1:00 PM CDT Home Care Visit [facility] Home Care [address] [place] [address] Sourav Negron, PLANT CONTROL OPERATOR PLANT CONTROL OPERATOR HOME VISIT 04/12/2025 12:00 PM CDT Home Care Visit [address] [place] [address] Татьяна Fernandez LPN SN HOME VISIT 04/11/2025 11:30 AM CDT Office Visit [facility], [address] [address] Marita Hargrove APRN Follow Up; Hypertension; CHF 04/11/2025 Travel 04/09/2025 1:00 PM CDT Home Care Visit [address] [phone] Sourav Negron, PLANT CONTROL OPERATOR PLANT CONTROL OPERATOR HOME VISIT 04/09/2025 Results Follow-Up [place] [address] Marita Hargrove APRN BASIC METABOLIC PANEL 04/08/[address] [place] [address] Magali Rodriguez, RN Follow Up Call (CHF discharge callback ) 04/05/2025 1:32 PM CDT - 04/05/2025 11:59 PM CDT Hospital Encounter [place] [address] Marita Hargrove, FIELD INSTRUCTOR Discharge Disposition: Home or Self Care (Routine Discharge) 04/05/2025 11:15 AM CDT Home Care Visit [facility] Home Care [address] [phone] Татьяна Fernandez LPN SN HOME VISIT 04/05/[address] [facility] [place] [address] Marita Hargrove, FIELD INSTRUCTOR 04/02/2025 11:30 AM CDT Home Care Visit [facility] Home Care [address] [phone] Shikha Posada, PT PT INITIAL EVALUATION 04/01/2025 Telephone [facility] [place] [address] Magali Rodriguez, RN Follow Up Call (CHF discharge callback) 03/29/2025 12:00 PM CDT Home Care Visit [facility] Home [address] [phone] Cate Davis, TAMMIE SN OASIS START OF CARE 03/29/2025 Plan of Care Documentation [facility] Home Care [address] [phone] 03/26/2025 Hospital Follow-up Call [facility] [place] [address] Maribeth Rossi LPN Follow Up Call (NANCIE 03/15-03/24/25) 03/22/2025 Telephone [facility], [address] [place] [address] Inessa Arriola MD Appointment Request 03/20/2025 Travel 03/15/2025 11:04 AM CDT - 03/24/2025 1:47 PM CDT Hospital Encounter [facility] [place] [address] Ramin Oliver MD Jumean, Khaled, MD Suresh, Bon Salinas, Evan Templeton MD McGowen, Gina Arce, MD Pelaez, Shaye Brooks, Gina Jane PA-C Decreased Oxygen Level With Symptoms Discharge Disposition: Home with Home Health Care 03/15/2025 Travel 02/25/2025 2:15 PM CDT Office Visit [facility], [address] [place] [address] Marita Hargrove APRN [facility] Follow Up (Hypoxic Respiratory Failure); CHF (HFpEF) 02/25/2025 Travel 02/11/2025 6:58 AM CDT - 02/11/2025 11:59 PM CDT Hospital Encounter [facility] [place] [address] Inessa Arriola MD Discharge Disposition: Home or Self Care (Routine Discharge) 02/11/2025 Results Follow-Up [facility], [address] [place] [address] Yessy Bhandari, TAMMIE BASIC METABOLIC PANEL 02/11/2025 Travel 02/05/2025 Telephone [facility] Medical Group Multispecialty Care - [facility] [address] [facility] [place] [address] Fabio Hernandez MD Hospital Follow Up 02/04/2025 Orders Only [facility], [address] [place] [address] Inessa Arriola MD 02/01/2025 Telephone [facility] Medical [facility] Pulmonology [facility] [phone] [place] [phone] Tam Capellan DO Appointment Request 01/22/2025 1:19 PM CDT - 02/04/2025 6:53 PM CDT Hospital Encounter [facility] Telemetry Unit B [facility] [place] [address] Joana Hassan MD D'Souza, MD Atul Wilson Deborah, MD Tran, Claudio Loya MD Decreased Oxygen Level Asymptomatic Discharge Disposition: Home or Self Care (Routine Discharge) from Last 3 Months Social History Tobacco [...] materials from doctor or pharmacy Never 03/29/2025 [facility] Utilities Answer Date Recorded In the past 12 months has [employer], oil, or water [employer] threatened to shut off services in your [...] 01/22/2025 How often do you attend chur ch or mosque services? 1 to 4 times per year 01/22/2025 Do you belong to any clubs o r organizations such as denominational groups, unions, fraternal or athletic groups, or [...] and heating? Not hard at all 03/15/2025 [facility] Occupat ional Health - Occupational Stress [...] place to sleep or slept in a jail (including now)? No 05/07/2023 Housing Stability Vital Sign Answer Joseluis e Recorded In the last 12 months, was t here a time when you were not able to pay the mortgage or rent on time? No 03/15/2025 In the past 12 months, how m any times have you moved where you were living? 0 03/15/2025 At any time in the past 12 m [facility], were you homeless or living in a jail (including now)? No 03/15/2025 Sex and Gender Information Value Date Recorded Sex Assigned at Male 01/22/2025 1:19 PM CDT Legal Sex Male 6:44 AM LACQUER SPRAY BOOTH OPERATOR Gender Identity Not on file Sexual Orientation Not on file Last Filed Vital Signs Vital Sign Reading Time Taken Comments Blood Pressure 138/78 04/24/2025 11:45 AM CDT Pulse 70 04/24/2025 11:45 AM CDT Temperature 36.5 C (97.7 F) 04/17/2025 8:30 AM CDT Respiratory Rate 20 04/24/2025 11:45 AM CDT Oxygen Saturation 91% 04/24/2025 11:45 AM CDT Inhaled Oxygen Concentration - - Weight 168.3 kg (371 lb) 04/11/2025 11:25 AM CDT Height 180.3 cm (5' 11) 04/11/2025 11:25 AM CDT Body Mass Index 51.74 04/11/2025 11:25 AM CDT Plan of Treatment Upcoming Encounters Date Type Department Care Team (Late st Contact Info) Description 05/22/2025 3:00 PM LACQUER SPRAY BOOTH OPERATOR Office Visit [facility], [address] [place] [address] Inessa Arriola MD [facility]. [address] [place] [address] 05/27/2025 2:00 PM LACQUER SPRAY BOOTH OPERATOR Telemedicine [facility] Medical Group Multispecialty Care - [facility] [address] [facility] [place] [address] Faboi Hernandez MD [address] [facility] [address] [place] [address] 08/15/2025 10:15 AM LACQUER SPRAY BOOTH OPERATOR Office Visit [facility], [address] [place] [address] Marita Hargrove APRN [facility]. [address] [place] [address] Health Maintenance Due Date Last Done Comments [...] 60-74 years 1-dose series) 2020 PHQ-2 (Physician Huslia) 07/11/2024 COVID-19 Vaccine (3 - season) 2025 09/29/2020, 09/08/2020 Influenza Adult (#1) 2025 03/26/2020, 04/29/20 14 Hemoglobin A1C 08/28/2025 02/25/2025, 01/08, 11/23/2023, Additional history exists Lipid Panel 01/23/2026 01/23/2025 Hepatitis A Vaccines Aged Out No long er eligible based on patient's age to complete this topic Meningococcal B Vaccine Aged Out No l [...] Contreras RN Medical Devices Implanted Type Area Rotary Planer Set Up Operator Device Identifier Shelf Expiration Date Model / Serial / Lot Stent Naviflex Rx Delivery System 10f - [id number] Implanted:Qty: 1 on 08/21/2020 by Kevin Briggs MD at [facility] Stent N/A: [employer] CHARLES ref: [id number] 05/27/2021 [id number] / / [id number] Procedures Procedure Name Priority Date/Time Associated Diagnosis Comments BASIC METABOLIC PANEL Routine 04/05/2025 12:42 PM CDT Acute on chronic diastolic heart failure ([facility]) POCT GLUCOSE - DOCKED DEVICE Routine 03/24/2025 11:09 AM CDT HOME O2 EVAL Routine 03/24/2025 9:40 AM CDT CBC, AUTO, NO DIFF Routine [...] 7:09 AM CDT CHF (congestive heart failure) ([facility]) POCT GLUCOSE - DOCKED DEVICE [...] LIPID PANEL Routine 01/23/2025 5:31 AM CDT from Last 3 Months Results * (ABNORMAL) BASIC METABOLIC PANEL (04/05/2025 12:42 PM CDT) Only the most recent of25 resultswithin the time period is included. GLUCOSE 207(H) 70 - 99 MG/DL 04/05/2025 2:20 PM CDT [facility] BUN 50(H) 7 - 18 MG/DL 04/05/2025 2:20 PM CDT [facility] CREATININE S/P/B 1.83(H) 0.7 - 1.3 MG/DL 04/05/2025 2:20 PM CDT [facility] SODIUM S/P/B 134(L) 136 - 145 MMOL/L 04/05/2025 2:20 PM CDT [facility] POTASSIUM S/P/B 4.6 3.5 - 5.1 MMOL/L 04/05/2025 2:20 PM CDT [facility] CHLORIDE S/P/B 98 97 - 115 MMOL/L 04/05/2025 2:20 PM CDT [facility] CO2 30.0 21 - 32 MMOL/L 04/05/2025 2:20 PM CDT [facility] CALCIUM S/P/B 9.9 8.5 - 10.1 MG/DL 04/05/2025 2:20 PM CDT [facility] ANION GAP 6.0 2 - 10 MMOL/L 04/05/2025 2:20 PM CDT [facility] BUN CREATININE RATIO 27.3(H) 6 - 26 04/05/2025 2:20 PM CDT [facility] GFR ESTIMATE 41(L) >90 ML/MIN/1.7 3 M2 04/05/2025 2:20 PM CDT [facility] Comment: NOTE: eGFR is not calculated for patients <18 years of age or gender unknown. This is an estimated GFR calculation using the new CKD EPI creatinine equation without race and so does not require a correction factor for race. This estimated GFR should not be used for calculating drug doses. 04/05/2025 12:4 2 PM CDT Marita Hargrove FIELD INSTRUCTOR LABORATORY Final R esult Performing Organization Address City/[facility]/ZIP Co de Phone Number [facility] [address] [place] [address], [place] [phone] * (ABNORMAL) POCT glucose (03/24/2025 11:09 AM CDT) Only the most recent of88 resultswithin the time period is included. [facility] Signature GLUCOSE POC 238(H) 70 - 99 mg/dL 03/24/2025 11:27 AM CDT [facility] 03/24/2025 11:0 9 AM CDT Gina Mcgregor PA-C POCT ORDERABLES - DEVICE Jeanie l Result [facility] [address] [place] [address], [place] [phone] * (ABNORMAL) CBC, AUTO, NO DIFF (03/24/2025 8:59 AM CDT) Only the most recent of8 resultswithin the time period is included. WBC 4.99 4.5 - 11.0 x10'3/uL 03/24/2025 9:11 AM CDT [facility] RBC 3.99(L) 4.70 - 6.10 x10'6/uL 03/24/2025 9:11 AM CDT [facility] HGB 10.8(L) 14.0 - 18.0 G/DL 03/24/2025 9:11 AM CDT [facility] HCT 35.4(L) 43.0 - 54.0 % 03/24/2025 9:11 AM CDT [facility] MCV 88.7 80.0 - 94.0 FL 03/24/2025 9:11 AM CDT [facility] MCH 27.1 27.0 - 31.0 PG 03/24/2025 9:11 AM CDT [facility] MCHC 30.5(L) 32.0 - 36.0 G/DL 03/24/2025 9:11 AM CDT [facility] RDW 16.9(H) 11.5 - 14.5 % 03/24/2025 9:11 AM CDT [facility] PLT 195 130 - 400 x10'3/uL 03/24/2025 9:11 AM CDT [facility] MPV 9.5 9.3 - 12.2 FL 03/24/2025 9:11 AM CDT [facility] 03/24/2025 8:59 AM CDT us Shaye Pelaez DO LABORATORY Final Res ult [facility] [address] [place] [address], * MAGNESIUM (03/24/2025 8:59 AM CDT) Only the most recent of11 resultswithin the time period is included. MAGNESIUM 2.1 1.8 - 2.4 MG/DL 03/24/2025 10:09 AM CDT [facility] 03/24/2025 8:59 AM CDT Evan Floyd MD LABORATORY Final Result [facility] [address] [place] [address], * (ABNORMAL) PRO-BRAIN NATRIURETIC PEPTIDE (03/21/2025 6:49 AM CDT) Only the most recent of2 resultswithin the time period is included. PRO-B TYPE NATRIURETIC PEPTIDE 955(H) <125 PG/ML 03/21/2025 8:39 AM CDT [facility] Comment: CUT POINTS ESTABLISHED BY [...] CDT Inessa Arriola MD LABORATORY Final Result [facility] [address] [place] [address], * XR CHEST PA+LAT (03/20/2025 11:26 AM CDT) Anatomical Region Laterality Modality Chest Radiographic [place] ging 03/20/2025 11:2 8 AM CDT Impressions 03/20/2025 11:33 AM CDT IMPRESSION: At least moderate pulmonary vascular congestion and pulmonary edema but slightly decreased compared to 03/15/2025. Ordered By: INESSA ARRIOLA Interpreted By: Erick Mackay, 03/20/2025 11:28 AM Narrative 03/20/2025 11:33 AM CDT [address] [address] IMAGING STUDIES: XR CHEST PA+LAT DATE: 03/20/2025 [...] Procedure Note Erick Mackay MD - 03/20/[address] [address] IMAGING STUDIES: XR CHEST PA+LATDATE: 03/20/2025 11:09 [...] URINE CLEAN CATCH 03/16/2025 8:27 PM CDT [facility] COLOR (U) COLORLESS 03/16/2025 9:09 PM CDT [facility] TRANSPARENCY CLEAR 03/16/2025 9:09 PM CDT [facility] SPECIFIC GRAVITY (U) 1.010 1.001 - 1.030 03/16/2025 9:09 PM CDT [facility] U PH 5.0 5.0 - 9.0 03/16/2025 9:09 PM CDT [facility] LEUKOCYTES (U) NEGATIVE NEGATIVE 03/16/2025 9:09 PM CDT [facility] NITRITES NEGATIVE NEGATIVE 03/16/2025 9:09 PM CDT [facility] PROTEIN RANDOM (U) 10 <30 MG/DL 03/16/2025 9:09 PM CDT [facility] GLUCOSE (U) NORMAL NORMAL MG/DL 03/16/2025 9:09 PM CDT [facility] KETONES MG/DL (U) NEGATIVE NEGATIVE MG/DL 03/16/2025 9:09 PM CDT [facility] UROBILINOGEN NORMAL NORMAL MG/DL 03/16/2025 9:09 PM CDT [facility] BILIRUBIN (U) NEGATIVE NEGATIVE MG/DL 03/16/2025 9:09 PM CDT [facility] BLOOD (U) NEGATIVE NEGATIVE 03/16/2025 9:09 PM CDT [facility] URINE SPECIMEN OBTAINED BY CLEAN CATCH PROCEDURE / Unknown 03/16/2025 8:27 PM CDT us Ramin Oliver MD URINE ORDERABLES Final Result Performing Organization Address City/State/[facility] Co de Phone Number [facility] [address] [place] [address], * (ABNORMAL) CBC W/DIFF AUTOMATED (03/16/2025 5:42 AM CDT) Only the most recent of15 resultswithin the time period is included. WBC 5.04 4.5 - 11.0 x10'3/uL 03/16/2025 6:11 AM CDT [facility] RBC 3.36(L) 4.70 - 6.10 x10'6/uL 03/16/2025 6:11 AM CDT [facility] HGB 9.2(L) 14.0 - 18.0 G/DL 03/16/2025 6:11 AM CDT [facility] HCT 30.4(L) 43.0 - 54.0 % 03/16/2025 6:11 AM CDT [facility] MCV 90.5 80.0 - 94.0 FL 03/16/2025 6:11 AM CDT [facility] MCH 27.4 27.0 - 31.0 PG 03/16/2025 6:11 AM CDT [facility] MCHC 30.3(L) 32.0 - 36.0 G/DL 03/16/2025 6:11 AM CDT [facility] RDW 18.9(H) 11.5 - 14.5 % 03/16/2025 6:11 AM CDT [facility] PLT 229 130 - 400 x10'3/uL 03/16/2025 6:11 AM CDT [facility] MPV 9.8 9.3 - 12.2 FL 03/16/2025 6:11 AM CDT [facility] DIFFERENTIAL TYPE AUTOMATED DIFFERENTIAL 03/16/2025 6:11 AM CDT [facility] NEUTROPHILS % 73.8 % 03/16/2025 6:11 AM CDT [facility] LYMPHOCYTES % 15.5 % 03/16/2025 6:11 AM CDT [facility] MONOCYTES % 7.1 % 03/16/2025 6:11 AM CDT [facility] EOSINOPHILS 3.0 % 03/16/2025 6:11 AM CDT [facility] BASOPHILS 0.2 % 03/16/2025 6:11 AM CDT [facility] IMMATURE GRANS % 0.4 % 03/16/20 6:11 AM CDT [facility] ABS. NEUTROPHILS 3.72 1.80 - 7.70 x10'3/uL 03/16/2025 6:11 AM CDT [facility] ABS. LYMPHOCYTES 0.78(L) 1.00 - 4.80 x10'3/uL 03/16/2025 6:11 AM CDT [facility] ABS. MONOCYTES 0.36 0.30 - 0.82 x10'3/uL 03/16/2025 6:11 AM CDT [facility] ABS. EOSINOPHILS 0.15 0.04 - 0.54 x10'3/uL 03/16/2025 6:11 AM CDT [facility] ABS. BASOPHILS 0.01 0.01 - 0.08 x10'3/uL 03/16/2025 6:11 AM CDT [facility] ABS. IMMATURE GRANULOCYTES 0.02 0.00 - 0.49 x10'3/uL 03/16/2025 6:11 AM CDT [facility] 03/16/2025 5:42 AM CDT Jaye Santacruz MD LABORATORY Final Result Performing Organization Address City/[facility]/ZIP Co de Phone Number [facility] [address] [place] [address], [place] [phone] * PROCALCITONIN (PCT) (03/16/2025 5:39 AM CDT) Only the most recent of2 resultswithin the time period is included. PROCALCITONIN <0.05 0.00 - 0.49 NG/ML 03/16/2025 1:39 PM CDT [facility] 03/16/2025 5:39 AM CDT Bon Lazaro MD LABORATORY Final R esult Performing Organization Address City/[facility]/ZIP Co de Phone Number [facility] [address] [place] [address], [place] [phone] * (ABNORMAL) ARTERIAL BLOOD GAS (03/15/2025 4:20 PM CDT) Only the most recent of2 resultswithin the time period is included. PH ARTERIAL 7.39 7.35 - 7.45 03/15/2025 4:55 PM CDT [facility] PCO2 51.0(H) 35.0 - 45.0 MMHG 03/15/2025 4:55 PM CDT [facility] PO2 88.0 83.0 - 108.0 MMHG 03/15/2025 4:55 PM CDT [facility] TOTAL CO2 ARTERIAL 32.5(H) 19.0 - 24.0 MMOL/L 03/15/2025 4:55 PM CDT [facility] BASE EXCESS 4.7(H) 0.0 - 3.0 MMOL/L 03/15/2025 4:55 PM CDT [facility] O2 SATURATION 97 94.0 - 98.0 % 03/15/2025 4:55 PM CDT [facility] BICARB ARTERIAL 30.9(H) 21.0 - 28.0 MMOL/L 03/15/2025 4:55 PM CDT [facility] EARLE TEST EARLE TEST PERFORMED 03/15/2025 4:54 PM CDT [facility] O2 ADMIN ARTERIAL 52% 03/15/2025 4:54 PM CDT [facility] DRAW SITE ARTERIAL LEFT BRACHIAL 03/15/2025 4:54 PM CDT [facility] 03/15/2025 4:20 PM CDT us Jaye Santacruz MD LABORATORY Final Result [facility] [address] [place] [address], * LACTIC ACID W REFLEX (SEPSIS) (03/15/2025 1:12 PM CDT) LACTIC ACID VENOUS 1.8 0.4 - 2.0 MMOL/L 03/15/2025 2:04 PM CDT [facility] 03/15/2025 1:12 PM CDT [facility] LABORATORY Final Result Performing Organization Address [facility] Co de Phone Number [facility] [address] [place] [address], * CULTURE, BACTERIA, BLOOD (03/15/2025 1:12 PM CDT) Only the most recent of2 resultswithin the time period is included. SPEC DESCRIPTION BLOOD 03/15/2025 12:38 PM CDT [facility] SPECIAL REQUESTS NO SPECIAL REQUEST 03/15/2025 12:38 PM CDT [facility] CULTURE RESULT NO GROWTH 5 DAYS 03/20/2025 1:46 PM CDT [facility] BLOOD SPECIMEN OBTAINED FOR BLOOD CULTURE / Unknown 03/15/2025 1:12 PM CDT 03/15/2025 1:25 PM CDT Ramin Oliver MD MICROBIOLOGY - GENERAL ORDERABL ES Final Result Performing Organization Address [facility] de Phone Number [facility] [facility] [address] [place] [address], * XR CHEST PORTABLE (03/15/2025 12:21 PM CDT) Only the most recent of4 resultswithin the time period is included. Anatomical Region Laterality Modality Chest Radiographic [place] ging 03/15/2025 12:2 9 PM CDT Impressions 03/15/2025 12:34 PM CDT ======== IMPRESSION: Diffuse pulmonary densities may be secondary to edema or infection or other etiology. Ordered By: RAMIN OLIVER Interpreted By: Quincy Garcia MD, 03/15/2025 12:29 PM Narrative 03/15/2025 12:34 PM CDT [place] [address] Examination: Chest Radiograph, 1 view Exam Date/Time: 03/15/2025 11:56 AM Reason For Exam: SOB Comparison: 02/02/2025 Technique: Single AP view of the chest. Findings: Diffuse pulmonary densities seen. There may be slight basilar and central predominance.. No large pleural effusions or pneumothorax is seen. Procedure Note Quincy Garcia MD - 03/15/[address] [address] Examination: Chest Radiograph, 1 view Exam Date/Time: [...] By: Quincy Garcia MD, 03/15/2025 12:29 PM Ramin Oliver MD GENERAL IMAGING Final Result * ECG 12 lead (03/15/2025 12:00 PM CDT) 03/15/2025 12:0 0 PM CDT Narrative [facility] ([facility]) RAD - 03/15/2025 8:[address] [facility] [address] Test Date: 2025-03-15 Pat Name: MARIO ENRIQUEZ Department: 41 Room: A418 Gender: Male Party Supply Specialist: [id number] : 1960 Requested By: RAMIN OLIVER Order Number: [id number] Reading MD: Mars Reed Measurements Intervals Dane Rate: 73 P: 63 FL: 149 QRS: 44 QRSD: 92 T: 46 QT: 358 QTc: 395 Interpretive Statements SINUS RHYTHM WITH SINUS ARRHYTHMIA Compared to ECG 01/22/2025 14:00:04 No significant changes Procedure Note Mars Reed MD - 03/15/2025 [facility] [address] Test Date: 2025-03-15 Pat Name: MARIO ENRIQUEZ Department: 41 Room: A418 Gender: Male Party Supply Specialist: [id number] : 1960 Requested By: RAMIN OLIVER Order Number: [id number] Reading : Mars Reed Measurements Intervals Dane Rate: 73 P: 63 FL: 149 QRS: 44 QRSD: 92 T: 46 QT: 358 QTc: 395 Interpretive Statements SINUS RHYTHM WITH SINUS ARRHYTHMIA Compared to ECG 01/22/2025 14:00:04 No significant changes us Ramin Oliver MD ECG ORDERABLES Final Result [facility] ([facility] * PARTIAL THROMBOPLASTIN TIME,PTT (03/15/2025 11:59 AM CDT) PTT 30.9 25.1 - 36.5 SEC 03/15/2025 2:19 PM CDT [facility] 03/15/2025 11:5 9 AM CDT [facility] Amy RODRÍGUEZ LABORATORY Final Result Performing Organization Address [facility] Co de Phone Number [facility] [address] [place] [address], [place] [phone] * (ABNORMAL) PROTIME/INR, VENOUS (03/15/2025 11:59 AM CDT) PROTIME 14.2(H) 10.2 - 12.9 SEC 03/15/2025 2:19 PM CDT [facility] INR 1.2 03/15/2025 2:19 PM CDT [facility] Comment: Recommended INR Therapeutic Goals: 2.0-3.0 Routine Therapy 2.5-3.5 Mechanical Prosthetic Valves (High Risk) 03/15/2025 11:5 9 AM CDT Ramin Oliver MD LABORATORY Final Result Performing Organization Address [facility] Co de Phone Number [facility] [address] [place] [address], [place] [phone] * TROPONIN, QUANT (03/15/2025 11:59 AM CDT) TROPONIN I HIGH SENSITIVITY 12 <79 ng/L 03/15/2025 12:44 PM CDT [facility] Comment: HIGH DOSES OF BIOTIN, TROPONIN-SPECIFIC AUTOANTIBODIES, AND ANTIBODY THERAPY CONTAINING HAMA MAY INTERFERE WITH THIS TEST RESULT. CORRELATION TO CLINICAL HISTORY AND PRESENTATION RECOMMENDED. 03/15/2025 11:5 9 AM CDT Ramin Oliver MD LABORATORY Final Result [facility] [address] [place] [address], [place] [phone] * (ABNORMAL) URINE BACTERIA CULTURE (02/01/2025 9:23 AM CDT) SPEC DESCRIPTION URINE CLEAN CATCH 02/01/2025 9:30 AM CDT [facility] SPECIAL REQUESTS NO SPECIAL REQUEST 02/01/2025 9:30 AM CDT [facility] CULTURE RESULT 50,000-100,000 COL/ML SERRATIA MARCESCENS NOTE: ORGANISM MAY DEVELOP RESISTANCE AFTER 3 TO 4 DAYS OF THERAPY WITH THIRD GENERATION CEPHALOSPORINS. TESTING OF REPEAT ISOLATES MAY BE WARRANTED. (A) 02/06/2025 7:05 AM CDT [facility] CULTURE RESULT 10,000-49,000 COL/ML ENTEROCOCCUS SPECIES (A) 02/06/2025 7:05 AM CDT [facility] CULTURE RESULT 10,000-49,000 COL/ML STAPHYLOCOCCUS AUREUS (A) 02/06/2025 7:05 AM CDT [facility] CULTURE RESULT 10,000-49,000 COL/ML RAOULTELLA ORNITHINOLYTICA (A) 02/06/2025 7:05 AM CDT [facility] URINE SPECIMEN OBTAINED BY CLEAN [...] MICROBIOLOGY - GENERAL ORDERABLE S Final Result [facility] [address] [place] [address], * USE ECHOCARDIOGRAM W CON (01/23/2025 9:47 AM CDT) Anatomical Region Laterality Modality NA Echocardiogram 01/23/2025 8:21 AM CDT Narrative 01/23/2025 6:32 PM CDT Echocardiography Report Pat.Name: MARIO ENRIQUEZ.ID: [id number] .Date: 01/23/2025 Exam Time: 8:21:00 AM Study Type:ECHO WITH CARDIAC DOPPLER COMP Height: 72 in Weight: 365 lb BSA: 2.75 m2 Age: 2 1960,64Y Sex: M BP: 149/75 HR: 87 bpm Sonogrphr: Gadiel Rankin [facility] Pat. Stat.:Inpatient Room: 464 Reason for Study:CHF [...] Composite heart 79 bpm Mitral Valve Decel Blount 594 cm/s2 Mitral Valve A 0.458 HR [...] Left Atrium LA VOLBP 87.6 ml Major Dane (Sys 5.57 cm Pelaez Disk Nu 9 Major Dane (Sys 6.63 cm Ratios IVS Ventricular Septum IVSd 1.18 cm Aorta AO Ds 3.82 cm LV Area-Length Biplane LVEDV 162 ml LVESV 49.2 ml LV Area-Length Single Plane LVEDV 156 ml LVESV 51.1 ml LVEDV 171 ml LVESV 49.2 ml LVOT LVOTArea 3.47 cm2 Cardiovascular 2.1 cm Right Atrium Major Dane (Sys 5.91 cm Pelaez Disk Nu 9 HR 81 bpm RA Area-Length Single Plane Volume (Systole 21.9 ml/m2 RA Single Plane RA sys Area 20.5 cm2 Volume (Systole 56.3 ml Right Ventricle RVIDd 4.57 cm HR 84 bpm Major Dane (Hilda 9.22 cm Minor Dane (Hilda 4.34 cm TA Cardiovascular 4.31 cm [...] - 01/24/2025 Echocardiography Report Pat.Name: MARIO ENRIQUEZ.ID: [id number] .Date: 01/23/2025 Exam Time: 8:21:00 AM Study Type:ECHO WITH CARDIAC DOPPLER COMP Height: 72 in Weight: 365 lb BSA: 2.75 m2 Age: 2 1960,64Y Sex: M BP: 149/75 HR: 87 bpm Sonogrphr: Gadiel Rankin [facility] Pat. Stat.:Inpatient Room: 464 Reason for Study:CHF [...] Composite heart 79 bpm Mitral Valve Decel Blount 594 cm/s2 Mitral Valve A 0.458 HR [...] Left Atrium LA VOLBP 87.6 ml Major Dane (Sys 5.57 cm Pelaez Disk Nu 9 Major Dane (Sys 6.63 cm Ratios IVS Ventricular Septum IVSd 1.18 cm Aorta AO Ds 3.82 cm LV Area-Length Biplane LVEDV 162 ml LVESV 49.2 ml LV Area-Length Single Plane LVEDV 156 ml LVESV 51.1 ml LVEDV 171 ml LVESV 49.2 ml LVOT LVOTArea 3.47 cm2 Cardiovascular 2.1 cm Right Atrium Major Dane (Sys 5.91 cm Pelaez Disk Nu 9 HR 81 bpm RA Area-Length Single Plane Volume (Systole 21.9 ml/m2 RA Single Plane RA sys Area 20.5 cm2 Volume (Systole 56.3 ml Right Ventricle RVIDd 4.57 cm HR 84 bpm Major Dane (Hilda 9.22 cm Minor Dane (Hilda 4.34 cm TA Cardiovascular 4.31 cm [...] (ABNORMAL) TSH W/REFLEX (01/23/2025 5:31 AM CDT) [facility] TSH 13.400(H) 0.358 - 3.74 uIU/ML 01/23/2025 7:59 AM CDT [facility] Comment: HIGH DOSES OF BIOTIN MAY INTERFERE WITH THIS TEST RESULT. CORRELATION TO CLINICAL HISTORY AND PRESENTATION RECOMMENDED. 01/23/2025 5:3 1 AM CDT Isael Naidu PA-C LABORATORY Final Result [facility] [address] [place] [address], [place] [phone] * (ABNORMAL) HEMOGLOBIN, GLYCATED (01/23/2025 5:31 AM CDT) [facility] HGB A1C 9.2(H) <5.7 % 01/23/2025 9:51 AM CDT [facility] Comment: ADA GUIDELINES 2010 5.7 TO 6.4% INCREASED RISK OF DIABETES > OR = 6.5% CONSISTENT WITH DIABETES ESTIMATED AVG GLUCOSE 217 mg/dL 01/23/2025 9:51 AM CDT [facility] 01/23/2025 5:31 AM CDT Isael Naidu PA-C LABORATORY Final Result [facility] [address] [place] [address], * (ABNORMAL) LIPID PANEL (01/23/2025 5:31 AM CDT) CHOLESTEROL 95 <200 MG/DL 01/23/2025 7:59 AM CDT [facility] TRIGLYCERIDES 226(H) <150 MG/DL 01/23/2025 7:59 AM CDT [facility] HDL 25(L) >40.0 MG/DL 01/23/2025 7:59 AM CDT [facility] LDL (CALCULATED) 25 <100 MG/DL 01/23/2025 7:59 AM CDT [facility] Comment:CALCULATED USING THE FRIEDEWALD EQUATION NON HDL CHOLESTEROL 70 <130 MG/DL 01/23/2025 7:59 AM CDT [facility] CHOL/HDL RATIO 3.8 0.0 - 4.5 01/23/2025 7:59 AM CDT [facility] VLDL CALCULATION 45 5 - 55 MG/DL 01/23/2025 7:59 AM CDT [facility] LIPID INTERPRETATION 01/23/2025 7:59 AM CDT [facility] Comment: NIH CONCENSUS REPORT RECOMMENDATIONS: ADULT CHILD LOW RISK: CHOLESTEROL <200 <170 TRIGLYCERIDE <150 --- HDL >=60 --- LDL <100 <110 BORDERLINE: CHOLESTEROL 200-239 170-199 TRIGLYCERIDE 150-199 --- HDL 40-59 --- LDL 100-159 110-129 HIGH RISK: CHOLESTEROL >=240 >=200 TRIGLYCERIDE >=200 --- HDL <40 --- LDL >=160 >=130 01/23/2025 5:31 AM CDT Isael Naidu PA-C LABORATORY Final Result Performing Organization Address [facility] Co de Phone Number [facility] [address] [place] [address], * THYROXINE, FREE (FT4) (01/23/2025 5:31 AM CDT) FREE T4 0.90 0.76 - 1.46 NG/DL 01/23/2025 8:48 AM CDT [facility] 01/23/2025 5:31 AM CDT Isael Naidu PA-C LABORATORY Final Result Performing Organization Address [facility] Phone Number [facility] [address] [place] [address], [place] [phone] * FERRITIN (01/23/2025 5:31 AM CDT) FERRITIN 10.7 8.0 - 388.0 NG/ML 01/23/2025 11:14 AM CDT [facility] 01/23/2025 5:31 AM CDT Inessa Arriola MD LABORATORY Final Result Performing Organization Address [facility] Co de Phone Number [facility] [address] [place] [address], [place] [phone] from Last 3 Months Insurance [employer] Advance Directives * Full Code (Latest Code [...] 4:44 PM 08/23/2020 2:20 PM Care Teams Director Of Sales Relationship Specialty Start Date End Date Zachary Allen MD [address] [place] [address] PCP - General INTERNAL MEDICINE 03/27/25
--- OUTSIDE RECORDS SUMMARY | 2025-04-25 08:22 | XMS_ITS | Clinical Summary ---
Author Organization [facility] Sun Number Address [address] [place] [address] Care Team Providers Care Chain Maker Hand Name Role Phone Quincy Foster MD Primary Care Provider [phone] Source Comments [facility] Sun Number,non-owned Affiliates and Associated Physician Practices is amultiple site organization consisting of ambulatory clinics and hospital sitesin [place], [place], [place] and [place]. This disclosure is being madepursuant to the Care Everywhere program and may not contain all information available regarding this patient. Last updated 18.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
--- OUTSIDE RECORDS SUMMARY | 2025-04-25 08:22 | XMS_ITS | Encounter Summary ---
Author Organization [facility] Address [address] [place] [address] Care Team Providers Care Travel Physical Therapist Name Role Phone Quincy Rosado MD Primary Care Provider [phone] None, Provider Primary Care Provider Zachary Longoria MD Primary Care Provider [phone] Encounter Details Date Type Department Care Team (Late st Contact Info) Description 11/04/2020 Prep for Procedure [facility] [place], [place] [id number] Kevin Briggs MD [address] [facility] [address] [place], [place] [id number] Social History Tobacco Use Types Packs/Day Years [...] PM CDT Legal Sex Male 6:44 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 Answer Date of Assessment Author Status No 08/19/2020 10:15 PM SUPERVISOR ROUGH END Acti ve * Do you have serious [...] st Contact Info) Description 05/22/2025 3:00 PM SUPERVISOR ROUGH END [facility] [address] [place] [address] Inessa Arriola MD [facility]. [address] [place] [address] 05/27/2025 2:00 PM SUPERVISOR ROUGH END Telemedicine [facility] - [facility] [address] [facility] [place] [address] Fabio Hernandez MD [address] [place] [address] [address] [place] [address] 08/15/2025 10:15 AM SUPERVISOR ROUGH END Office Visit [facility], [address] [place] [address] Marita Hargrove APRN [address] [place] [address] documented as of this encounter Visit Diagnoses Not on filedocumented in this encounter Additional Health Concerns Infection Onset Date Last Indicated Resolved Time COVID-19 Rule Out 05/10/2023 05/10/2023 05/10/2023 10:23 PM CDT COVID-19 Rule Out 01/22/2025 01/22/2025 01/22/2025 2:34 PM CDT documented as of this encounter Care Teams Travel Physical Therapist Relationship Specialty Start Date End Date Quincy Rosado MD [address] [address] PCP - General INTERNAL MEDICINE 08/19/20 03/14/25 None, MD Faraz PCP - General UNKNOWN PHYSICIAN SPECIALTY 03/15/25 03/18/25 Zachary Allen MD [address] [place] [address] PCP - General INTERNAL MEDICINE 03/27/25 documented as of this encounter
--- NOTE | 2025-05-12 14:33 | WPDSLEEPSTUD ---
Sleep Study Date of Study: 04/25/25 Ordering Provider: Fabio Hernandez, Interpreting Physician: Rebeca Hernandez MD Sleep Study Type: Polysomnogram Height: 1.83 m Weight: 163.293 kg Body Mass Index: 48.8 Neck Circumference (inches): 20 Thatcher: 4 Reason for Sleep Study History of JOANA, on 2002, on BiPAP for 10 years; developed diastolic heart failure January 2025 * 01/23/2025 echo [facility] EF 65-70%, LV diastolif dysfunction grade 3 -restrictive filling Sleep History Vamsi Love is a 64-year-old man who used BiPAP from 2002 until 2012 when he had an illness and stopped wearing it. He has developed heart disease, needs to have sleep apnea addressed again. He does not awaken from sleep feeling short of breath, does not awaken with coughing, belching or heartburn, does not snore and others do not tell him that he snores. He occasionally has trouble sleeping when he has a cold. He does not wake up gasping for breath at night, does not sweat at night, does not have palpitations or irregular heartbeats at night. He does not fall asleep in the day, does not fall asleep involuntarily, not does he fall asleep while driving. He denies loss of muscle tone with strong emotion, does not have daytime difficulties due to excessive sleepiness, does not feel paralyzed on falling asleep or on waking. He occasionally has vivid dream like scenes on falling asleep or upon waking. He is not afraid to go to sleep. He rarely has nightmares. He frequently recalls his dreams. he does not have racing thughts, does not feel sad or depressed, occasionally feels anxious. He does not notice parts of his body jerking, he does not kick at night, nor does he have crawling or aching feelings in his legs. he has no leg pain at night. He does not have morning jaw pain, does not grind his teeth at night. He is not bothered by pain during the day, is not awakened by pain at night. HE does not wake up feeling stiff in the morning, does not wake with sore or achy muscles, does not wake with pain in hte neck or spine. normal bedtime is 11:00 pm to 11:30 pm, falling asleep within 15-30 minutes, wakes once at most at night to adjust for comfort, returns to sleep in a few moments. He wakes at 7:30 am, and keeps the same schedule on weekends. he estimates getting 7-9 hours of sleep at night, sometimes takes naps, and may feel refreshed after a 10-15 minute nap. Habits: Tobacco : former smoker, none for 25 years Caffeine : sometimes coffee Alcohol : none Recreational substances : [] COUNTS INCLUDE 234 BEDS AT THE [facility] Past Medical History Medical History (Updated 05/12/25 @ 15:15 by Rebeca Hernandez MD) Anemia CKD (chronic kidney disease), stage III JOANA (obstructive sleep apnea) Hypothyroidism GERD (gastroesophageal reflux disease) Hyperlipidemia CHF (congestive heart failure) BPH (benign prostatic hyperplasia) Diabetes Hypertension Medications Medications: Hand written list levothyroxine metformin pantoprazole carvedilol spironolactone furosemide magnesium oxide amlodipine allopurinol telmisartan finasteride atorvastatin Humalog sliding scale insulin Sleep Procedure A full night polysomnogram using the [email or web address] multi-channel system recorded the standard physiologic parameters including EEG, EOG, submentalis EMG, anterior tibialis EMG, EKG, body position, nasal and oral airflow using nasal pressure sensor and thermistor. Respiratory parameters of chest and abdominal movements were recorded with Respiratory Inductance Plethysmography belts. Oxygen saturation was recorded by pulse oximetry. Video monitoring was also performed. Sleep stages, periodic limb movements, and EEG arousals were scored in 30 second epochs according to the criteria of the AASM Scoring Manual. The Apnea-Hypopnea Index was calculated using CMS guidelines for definition of hypopnea while scoring respiratory events. Patient uses wheelchair and walker and is on 2-4 lpm supplemental O2 at all times. O2 protocol was explained; pt stated that he would leave the sleep alb if he could not keep O2 on. Study was started with 2 L/minute. Patient reports that he used BiPAP from approximately 2001 - 2012, but stopped using it during an illness and never resumed use. Study start was delayed due to patient requests for adjustment of fan, bed, and emptying of catheter bag. The flow sensor had to be replaced. He asked for a sleep aid; policy explained. Patients need to bring their own sleep aid to the sleep lab. Although patient was still awake after 1:00 a.m., he repeatedly stated that he did not want to have to return and wanted to complete baseline and titration in one night. The appliance technician explained the protocol, including that he would have to have enough sleep early enough in the night to proceed with the titration. He slept with the head of the bed elevated; sleeps in recliner at home. Sleep was not achieved and maintained until around 2:00 a.m., at which time SpO2 fell to below 88% and supplemental O2 was increased to 3 L/minute. Split not requirement for minimum sleep time was not met; study completed as basic diagnostic PSG. Obstructive hypopneas were seen primarily in stages N2 and REM sleep. Sleep Architecture The total recording time was 377.6 minutes. The total sleep time was 195.5 minutes. Sleep latency was 72.5 minutes. REM latency was 169.5 minutes. Sleep efficiency was 51.8%. The patient had 27 awakenings for an awakening index of 8.3. Wake after sleep onset time was 109.5 minutes. The patient spent 22.5 minutes, 11.5% of total sleep time in Stage N1. The patient spent 132.0 minutes, 67.5% in Stage N2. The patient spent 1.0 minutes, 0.5% in Stage N3. The patient spent 40.0 minutes, 20.5% in Stage REM sleep. Respiratory Analysis The patient had 43 hypopneas, no obstructive apneas, no mixed apneas, and 1 central apnea for an overall Apnea Hypopnea Index of 13.5. The REM Apnea Hypopnea Index was 21.0. The NREM Apnea Hypopnea Index was 11.6. The patient had a Central Apnea Hypopnea Index of 0.3. There were no Respiratory Effort Related Arousals. The Respiratory Disturbance Index is 13.5 events per hour. There was no evidence of Patrick-Lawler Respirations. Arousals There were 58 total arousals for an arousal index of 17.8. There were 34 spontaneous arousals for an index of 10.4. There were 11 arousals due to respiratory events for an index of 3.4. There were 13 arousals due to periodic limb movements for an index of 4.0. There were no arousals due to isolated limb movements. Periodic Limb Movements The patient had 2 isolated limb movements with an index of 0.6. The patient had 328 periodic limb movements with an index of 100.7. Patient had a total of 330 limb movements with a total limb movement index of 101.3. Oximetry Data The patient had an average oxygen saturation of 89.8% in sleep with a minimum oxygen saturation of 83% and a maximum oxygen saturation of 98%. The patient had 44 oxygen desaturations that were 4% or greater resulting in an Oxygen Desaturation Index of 13.5. The patient spent 85 minutes, 22.5% of total sleep time with an oxygen saturation below 88%. He wore O2 during the night. Snoring Profile Snoring was not noted. He slept in the recliner with O2. Cardiac Profile The EKG showed normal sinus rhythm, average pulse rate of 70.7 bpm with a minimum pulse of rate of 59 bpm and a maximum pulse rate of 87 bpm. No arrhythmias noted. EEG Profile Unremarkable, no evidence of seizures. Assessment and Plan Assessment and Plan (1) JOANA (obstructive sleep apnea): Code(s): G47.33 - Obstructive sleep apnea (adult) (pediatric) Status: Acute Assessment and Plan: This basic polysomnogram on Apr 25, 2025 shows mild obstructive sleep apnea with an apnea hypopnea index of 13.5 with a minimum saturation of 83% and 85 minutes, 22.5% of the night, spent equal to or below 88%. He slept in bed with the head of the bed elevated and used oxygen from the beginning of the study. He did not meet criteria early enough in the night to proceed with a CPAP titration. The patient told the appliance technician that he did not plan to return, wanted to get the entire procedure completed in a single study. Due to the level of hypoxemia, this patient is not a candidate for auto PAP. I recommend a full night PAP titration. This includes routine protocol to titrate the positive airway pressure to eliminate obstructive events then add oxygen to eliminate hypoxemia. He should not nap on the day of the study. He should have adequate sleep aid available to use, if needed, to get to sleep and stay asleep. Sleeping with the head of the bed elevated alleviates apneas, and this slowed down the process for getting him to qualify for using PAP therapy. If the patient refuses to return to the sleep lab I would recommend auto PAP with nocturnal oximetry to determine if the supplemental oxygen he is using at night with his auto PAP is sufficient to maintain a saturation above 88%. He qualifies for auto PAP with a mild severity of obstructive sleep apnea and medical comorbidity including hypertension. The patient had tremendous number of periodic limb movements, the periodic limb movement index was 100.7. These did not cause arousals however he did have fragmented sleep throughout the night. His sleep history indicates that he does not have uncomfortable feelings in his legs at night nor does he kick at night. His limb movements may be contributing to his sleep fragmentation. His sleep latency was 72 minutes and the sleep efficiency was 51%, indicating he only slept half of the time that he was in bed. Data The data obtained during this sleep study is adequate for interpretation. Certification This sleep study has been reviewed by a board certified sleep medicine physician.
[2025-05-13 10:33] VITALS: BMI 48.8
== END ==
PROVIDERS: Visit Provider Student in an Organized Health Care Education/Training Program
DX: R06.83 Snoring (principal); G47.33 Obstructive sleep apnea (adult) (pediatric)
CPT/HCPCS: 95810